=== PATIENT | female | born 1955 | race African-American/Black ===

== ENCOUNTER 2016-04-25 18:33 | Emergency (ER) | payer BC, MEDICARE ==
--- NOTE | 2016-04-25 19:17 | ER Document Report ---
ED Medical Screen (RME) - General Stated Complaint: RIGHT LEG PAIN Notes: Patient states pain and swelling to right lateral leg since Tuesday. Denies injury, no erythema or warmth to the leg. Does have a history of blood clots in the lungs. No chest pain or shortness of breath, and denies any long distance travel. Consulted Dr. Mcneal and advised ordering a venous Doppler. I have greeted and performed a rapid initial assessment of this patient. A comprehensive ED assessment and evaluation of the patient, analysis of test results and completion of the medical decision making process will be conducted by additional ED providers. TRAVEL OUTSIDE OF THE [place] IN LAST 30 DAYS: No - Related Data Allergies/Adverse Reactions: cephalexin monohydrate [From Keflex] Allergy (Verified 02/04/15 01:19) sulfamethoxazole [From Bactrim] Allergy (Verified 02/04/15 01:19) trimethoprim [From Bactrim] Allergy (Verified 02/04/15 01:19) Past Medical History - Past Medical History Cardiac Medical History: Reports: Hx Hypercholesterolemia, Hx Hypertension, Hx Pulmonary Embolism Denies: Hx Atrial Fibrillation, Hx Congestive Heart Failure, Hx Coronary Artery Disease, Hx Heart Attack, Hx Peripheral Vascular Disease, Hx Heart Murmur Pulmonary Medical History: Reports: Hx Asthma, Hx Bronchitis, Hx Pneumonia, Hx Sleep Apnea - bipap at home Denies: Hx COPD, Hx Respiratory Failure, Hx Tuberculosis Neurological Medical History: Reports: Hx Cerebrovascular Accident. Denies: Hx Seizures Endocrine Medical History: Reports: Hx Diabetes Mellitus Type 2, Hx Hypothyroidism. Denies: Hx Graves' Disease, Hx Hyperthyroidism Renal/ Medical History: Reports: Hx Kidney Stones. Denies: Hx End Stage Renal Disease, Hx Ovarian Cysts, Hx Pelvic Inflammatory Disease Malignancy Medical History: Denies: Hx Breast Cancer, Hx Cervical Cancer, Hx Leukemia, Hx Lung Cancer, Hx Ovarian Cancer GI Medical History: Reports: Hx Gastroesophageal Reflux Disease, Hx Hiatal Hernia. Denies: Hx Crohn's Disease, Hx Irritable Bowel, Hx Liver Failure, Hx Ulcer Musculoskeltal Medical History: Reports Hx Arthritis, Denies Hx Fibromyalgia, Denies Hx Multiple Sclerosis, Denies Hx Muscular Dystrophy, Reports Hx Musculoskeletal Deformity, Reports Hx Musculoskeletal Trauma Psychiatric Medical History: Reports: Hx Anxiety Denies: Hx Bipolar Disorder, Hx Dementia, Hx Depression, Hx Post Traumatic Stress Disorder, Hx Schizophrenia Traumatic Medical History: Reports: Hx Fractures - right hand Infectious Medical History: Denies: Hx HIV Past Surgical History: Reports: Hx Cholecystectomy, Hx Hysterectomy, Hx Thyroid Surgery. Denies: Hx Appendectomy, Hx Bowel Surgery, Hx Section, Hx Colostomy, Hx Coronary Artery Bypass Graft, Hx Gastric Bypass Surgery, Hx Herniorrhaphy, Hx Mastectomy, Hx Pacemaker, Hx Tonsillectomy, Hx Tubal Ligation - Immunizations Immunizations up to date: No Hx Diphtheria, Pertussis, Tetanus Vaccination: Yes Physical Exam - Extremities Notes: Patient does have edema and tenderness over right lateral leg above ankle. Venous Doppler ordered per Dr. Mcneal.
[2016-04-25] MEDS ORDERED: HYDROCODONE/ACETAMINOPHEN 5-325 MG 6 TAB/DSPK PO PRN (21:52)
--- NOTE | 2016-04-25 21:56 | ER Document Report ---
ED Extremity Problem, Lower - General Chief Complaint: Leg Pain Stated Complaint: RIGHT LEG PAIN Time seen by provider: 21:53 Mode of Arrival: Ambulatory Information source: Patient TRAVEL OUTSIDE OF THE [place] IN LAST 30 DAYS: No - HPI Patient complains to provider of: Pain Location: Leg Occurred: Last week Onset/Duration: Persistent Quality of pain: Achy Severity: Moderate Pain Level: 3 Recent injury: No Exacerbated by: Movement, Walking Relieved by: Nothing Notes: 60-year-old female presents to the emergency room complaining of right lower leg pain that started on Tuesday, states she feels like there is a "swollen knot ", she denies any injury, reports a history of previous blood clots in her lungs , she is currently on Zaroxolyn so for this, denies missing any doses, she does report a history of tendinitis causing pain in this area in the past - Related Data Allergies/Adverse Reactions: cephalexin monohydrate [From Keflex] Allergy (Verified 02/04/15 01:19) sulfamethoxazole [From Bactrim] Allergy (Verified 02/04/15 01:19) trimethoprim [From Bactrim] Allergy (Verified 02/04/15 01:19) Past Medical History - General Information source: Patient - Social History Smoking Status: Current Every Day Smoker Chew tobacco use (# tins/day): No Frequency of alcohol use: None Drug Abuse: None Family History: Arthritis, CAD, CVA, Hyperlipidemia, Hypertension, Malignancy, Thyroid Disfunction. denies: DM Patient has suicidal ideation: No Patient has homicidal ideation: No - Past Medical History Cardiac Medical History: Reports: Hx Hypercholesterolemia, Hx Hypertension, Hx Pulmonary Embolism Denies: Hx Atrial Fibrillation, Hx Congestive Heart Failure, Hx Coronary Artery Disease, Hx Heart Attack, Hx Peripheral Vascular Disease, Hx Heart Murmur Pulmonary Medical History: Reports: Hx Asthma, Hx Bronchitis, Hx Pneumonia, Hx Sleep Apnea - bipap at home Denies: Hx COPD, Hx Respiratory Failure, Hx Tuberculosis Neurological Medical History: Reports: Hx Cerebrovascular Accident. Denies: Hx Seizures Endocrine Medical History: Reports: Hx Diabetes Mellitus Type 2, Hx Hypothyroidism. Denies: Hx Graves' Disease, Hx Hyperthyroidism Renal/ Medical History: Reports: Hx Kidney Stones. Denies: Hx End Stage Renal Disease, Hx Ovarian Cysts, Hx Peritoneal Dialysis, Hx Pelvic Inflammatory Disease Malignancy Medical History: Denies: Hx Breast Cancer, Hx Cervical Cancer, Hx Leukemia, Hx Lung Cancer, Hx Ovarian Cancer GI Medical History: Reports: Hx Gastroesophageal Reflux Disease, Hx Hiatal Hernia. Denies: Hx Crohn's Disease, Hx Irritable Bowel, Hx Liver Failure, Hx Ulcer Musculoskeltal Medical History: Reports Hx Arthritis, Denies Hx Fibromyalgia, Denies Hx Multiple Sclerosis, Denies Hx Muscular Dystrophy, Reports Hx Musculoskeletal Deformity, Reports Hx Musculoskeletal Trauma Psychiatric Medical History: Reports: Hx Anxiety Denies: Hx Bipolar Disorder, Hx Dementia, Hx Depression, Hx Post Traumatic Stress Disorder, Hx Schizophrenia Traumatic Medical History: Reports: Hx Fractures - right hand Infectious Medical History: Denies: Hx HIV Past Surgical History: Reports: Hx Cholecystectomy, Hx Hysterectomy, Hx Thyroid Surgery. Denies: Hx Appendectomy, Hx Bowel Surgery, Hx Section, Hx Colostomy, Hx Coronary Artery Bypass Graft, Hx Gastric Bypass Surgery, Hx Herniorrhaphy, Hx Mastectomy, Hx Pacemaker, Hx Tonsillectomy, Hx Tubal Ligation - Immunizations Immunizations up to date: No Hx Diphtheria, Pertussis, Tetanus Vaccination: Yes Hx Pneumococcal Vaccination: 12/28/11 Review of Systems - Review of Systems Constitutional: No symptoms reported EENT: No symptoms reported Cardiovascular: No symptoms reported Respiratory: No symptoms reported Gastrointestinal: No symptoms reported Genitourinary: No symptoms reported Female Genitourinary: No symptoms reported Musculoskeletal: See HPI Skin: No symptoms reported Hematologic/Lymphatic: No symptoms reported Neurological/Psychological: No symptoms reported -: Yes All other systems reviewed and negative Physical Exam - Vital signs Vitals: Temp Pulse Resp BP Pulse Ox 98.1 F 65 16 133/95 H 99 04/25/16 19:11 04/25/16 19:11 04/25/16 19:11 04/25/16 19:11 04/25/16 19:11 Interpretation: Normal - General General appearance: Appears well, Alert - HEENT Head: Normocephalic, Atraumatic Eyes: Normal Pupils: PERRL - Respiratory Respiratory status: No respiratory distress Chest status: Nontender Breath sounds: Normal Chest palpation: Normal - Cardiovascular Rhythm: Regular Heart sounds: Normal auscultation Murmur: No - Abdominal Inspection: Normal Distension: No distension Bowel sounds: Normal Tenderness: Nontender Organomegaly: No organomegaly - Back Back: Normal, Nontender - Extremities General upper extremity: Normal inspection, Nontender, Normal color, Normal ROM , Normal temperature General lower extremity: Normal inspection, Normal color, Normal ROM, Normal temperature, Normal weight bearing. No: Khadra's sign Ankle: Tender - Patient has mild tenderness to palpate just proximal to the right lateral malleolus, there was slight pain with range of motion testing of the ankle, no swelling, no calf tenderness, negative Homans sign, distal sensation and motor is intact - Neurological Neuro grossly intact: Yes Cognition: Normal Orientation: AAOx4 [place] Coma Scale Eye Opening: Spontaneous Luz Coma Scale Verbal: Oriented Luz Coma Scale Motor: Obeys Commands [place] Coma Scale Total: 15 Speech: Normal Motor strength normal: LUE, RUE, LLE, RLE Sensory: Normal - Psychological Associated symptoms: Normal affect, Normal mood - Skin Skin Temperature: Warm Skin Moisture: Dry Skin Color: Normal Course - Re-evaluation Re-evalutation: 04/26/16 03:35 Lower extremity Doppler shows no evidence of DVT, symptoms more consistent with musculoskeletal pain, patient was discharged with pain medication and instructions for follow-up, advised to return if symptoms worsen, patient acknowledges understanding and agreement with this plan - Vital Signs Vital signs: Temp Pulse Resp BP Pulse Ox 98.0 F 64 18 132/90 H 97 04/25/16 22:53 04/25/16 22:53 04/25/16 22:53 04/25/16 22:53 04/25/16 22:53 - Diagnostic Test Radiology reviewed: Image reviewed, Reports reviewed Procedures - Immobilization Right Ankle Time completed: 21:54 Pre-Proc Neuro Vasc Exam: Normal Immobilizer type: Magdi wrap Performed by: PCT Post-Proc Neuro Vasc Exam: Normal Alignment checked and good: Yes Discharge - Discharge Clinical Impression: Right leg pain Condition: Stable Disposition: HOME, SELF-CARE Instructions: Leg Pain Nonspecific ([facility]), Oral Narcotic Medication ([facility]) Additional Instructions: Follow up with your primary care provider in one to 2 days. Return to the emergency room immediately if symptoms worsen or any additional concerns. Prescriptions: Hydrocodone/Acetaminophen [Hydrocodon-Acetaminophen 5-325] 1 each PO Q6 #20 tablet Forms: Return to Work Referrals: GEO JACKSON MD [Primary Care Provider] - Follow up as needed
[2016-04-25 22:55] VITALS: BP 132/90
--- NOTE | 2016-04-26 15:11 | XCELERA REPORT ---
[address] [address] Lower Extremity Venous Evaluation Name: DIANNA SOLARES Age: 60 yrs Gender: Female : 1955 Patient Status: Emergency Patient Location: ER Study Date: 04/25/2016 09:02 PM Procedure: Color flow and duplex imaging of the veins of the right lower extremity as well as the left Common Femoral vein. Reason For Study: pain, swelling RLL Ordering Physician: TOM RANGEL Performed By: Amy Craven Right Sided Venous Evaluation Normal vessel filling wall to wall, compression and augmentation as well as Colour flow down to the infrageniculate veins. Left Sided Venous Evaluation The left common femoral vein is fully compressible. Spontaneous and phasic flow is present in the left common femoral vein. Critical Findings Called in to the ER. Interpretation Summary No duplex evidence of DVT or obstruction in the right lower extremity nor in the left Common Femoral vein. : TOM RANGEL [place]
== END 2016-04-25 22:55 | disposition home or self-care (01) ==
LOC: ER 18:33
DX: M79.604 Pain in right leg (principal); Z79.899 Other long term (current) drug therapy; F17.210 Nicotine dependence, cigarettes, uncomplicated
CPT/HCPCS: 93971; 99284

== ENCOUNTER 2016-11-16 20:43 | Emergency (ER) | payer MEDICARE, BC ==
[2016-11-16 22:44] LABS: ABSOLUTE BASOPHILS # (AUTO) 0.1 10^3/uL (0.0-0.2); ABSOLUTE EOSINOPHILS # (AUTO) 0.1 10^3/uL (0.0-0.6); ABSOLUTE LYMPHOCYTES (AUTO) 1.8 10^3/uL (0.5-4.7); ABSOLUTE MONOCYTES (AUTO) 0.8 10^3/uL (0.1-1.4); BASOPHILS % (AUTO) 0.6 % (0-2); EOSINOPHILS % (AUTO) 1.1 % (0-6); HEMOGLOBIN 11.6 g/dL (12.0-15.5); HGB HCT DIFFERENCE -1.2; LYMPHOCYTES % (AUTO) 18.1 % (13-45); MEAN CORPUSCULAR HEMOGLOBIN 23.8 pg (27.0-33.4); MEAN CORPUSCULAR HGB CONC 32.3 g/dL (32.0-36.0); MEAN CORPUSCULAR VOLUME 74 fl (80-97); MONOCYTES % (AUTO) 8.3 % (3-13); RED BLOOD COUNT 4.89 10^6/uL (3.72-5.28); RED CELL DISTRIBUTION WIDTH 17.8 % (11.5-14.0); SEGMENTED NEUTROPHILS % (AUTO) 71.9 % (42-78); WHITE BLOOD COUNT 9.7 10^3/uL (4.0-10.5)
[2016-11-16 22:53] LABS: PROTHROMBIN TIME 15.9 SEC (11.4-15.4)
[2016-11-16 23:02] LABS: ALANINE AMINOTRANSFERASE 18 U/L (9-52); ALBUMIN 4.5 g/dL (3.5-5.0); ALKALINE PHOSPHATASE 93 U/L (38-126); ANION GAP 11 (5-19); ASPARTATE AMINO TRANSFERASE 21 U/L (14-36); BILIRUBIN,DIRECT 0.4 mg/dL (0.0-0.4); BILIRUBIN,TOTAL 0.7 mg/dL (0.2-1.3); BLOOD UREA NITROGEN 17 mg/dL (7-20); CALCIUM 10.2 mg/dL (8.4-10.2); CARBON DIOXIDE 32 mmol/L (22-30); CHLORIDE 99 mmol/L (98-107); CREATINE KINASE 118 U/L (30-135); CREATININE RESULT 1.34 mg/dL (0.52-1.25); GLUCOSE 113 mg/dL (75-110); POTASSIUM 3.6 mmol/L (3.6-5.0); SODIUM 141.7 mmol/L (137-145); TOTAL PROTEIN 8.3 g/dL (6.3-8.2)
[2016-11-16 23:14] LABS: CREATINE KINASE MB 0.48 ng/mL (<4.55); TROPONIN I < 0.012 ng/mL
--- NOTE | 2016-11-16 23:21 | ER Document Report ---
ED Medical Screen (RME) - General Chief Complaint: Abdominal Pain >50 Stated Complaint: ABDOMINAL PAIN TRAVEL OUTSIDE OF THE [place] IN LAST 30 DAYS: No - HPI Notes: 11/16/16 23:18 Patient is a 61-year-old female who presents the ED complaining of bilateral lower abdominal pain that began this afternoon. The pain is described as sharp and does not radiate. She still eating and drinking without any difficulties. Patient states that she is having normal bowel movements and is urinating normally. Patient states she has a history of diverticulosis with her last colonoscopy being about a month ago without any complications. Patient states that the pain is been constant since it started. Denies any headache, fever, URI, sore throat, chest pain, palpitations, syncope, cough, shortness of breath , wheeze, dyspnea, nausea/vomiting/diarrhea, vaginal discharge/odor/bleeding, dysuria, hematuria, or rash. h/o partial hysterectomy. Extensive PMH. see list. I have treated and performed a rapid initial assessment of this patient. A comprehensive ED assessment and evaluation of the patient, analysis of test results and completion of medical decision making process will be conducted by additional ED providers. - Related Data Allergies/Adverse Reactions: cephalexin monohydrate [From Keflex] Allergy (Verified 02/04/15 01:19) sulfamethoxazole [From Bactrim] Allergy (Verified 02/04/15 01:19) trimethoprim [From Bactrim] Allergy (Verified 02/04/15 01:19) Past Medical History - Social History Frequency of alcohol use: None Drug Abuse: None - Past Medical History Cardiac Medical History: Reports: Hx Hypercholesterolemia, Hx Hypertension, Hx Pulmonary Embolism Denies: Hx Atrial Fibrillation, Hx Congestive Heart Failure, Hx Coronary Artery Disease, Hx Heart Attack, Hx Peripheral Vascular Disease, Hx Heart Murmur Pulmonary Medical History: Reports: Hx Asthma, Hx Bronchitis, Hx COPD, Hx Pneumonia, Hx Sleep Apnea - bipap at home Denies: Hx Respiratory Failure, Hx Tuberculosis Neurological Medical History: Reports: Hx Cerebrovascular Accident. Denies: Hx Seizures Endocrine Medical History: Reports: Hx Diabetes Mellitus Type 2, Hx Hypothyroidism. Denies: Hx Graves' Disease, Hx Hyperthyroidism Renal/ Medical History: Reports: Hx Kidney Stones. Denies: Hx End Stage Renal Disease, Hx Ovarian Cysts, Hx Peritoneal Dialysis, Hx Pelvic Inflammatory Disease Malignancy Medical History: Denies: Hx Breast Cancer, Hx Cervical Cancer, Hx Leukemia, Hx Lung Cancer, Hx Ovarian Cancer GI Medical History: Reports: Hx Gastroesophageal Reflux Disease, Hx Hiatal Hernia. Denies: Hx Crohn's Disease, Hx Irritable Bowel, Hx Liver Failure, Hx Ulcer Musculoskeltal Medical History: Reports Hx Arthritis, Denies Hx Fibromyalgia, Denies Hx Multiple Sclerosis, Denies Hx Muscular Dystrophy, Reports Hx Musculoskeletal Deformity, Reports Hx Musculoskeletal Trauma Psychiatric Medical History: Reports: Hx Anxiety Denies: Hx Bipolar Disorder, Hx Dementia, Hx Depression, Hx Post Traumatic Stress Disorder, Hx Schizophrenia Traumatic Medical History: Reports: Hx Fractures - right hand Infectious Medical History: Denies: Hx HIV Past Surgical History: Reports: Hx Cholecystectomy, Hx Hysterectomy, Hx Thyroid Surgery. Denies: Hx Appendectomy, Hx Bowel Surgery, Hx Section, Hx Colostomy, Hx Coronary Artery Bypass Graft, Hx Gastric Bypass Surgery, Hx Herniorrhaphy, Hx Mastectomy, Hx Pacemaker, Hx Tonsillectomy, Hx Tubal Ligation - Immunizations Immunizations up to date: No Hx Diphtheria, Pertussis, Tetanus Vaccination: Yes Physical Exam - Vital signs Vitals: Temp Pulse Resp BP Pulse Ox 99.3 F 73 16 127/86 H 100 11/16/16 21:26 11/16/16 21:26 11/16/16 21:11/16/16 21:26 11/16/16 21:26 Notes: PHYSICAL EXAMINATION: GENERAL: Well-appearing, well-nourished and in no acute distress. EYES: Pupils equal round and reactive to light, extraocular movements intact, sclera anicteric, conjunctiva are normal. LUNGS: Breath sounds clear to auscultation bilaterally and equal. No wheezes rales or rhonchi. HEART: Regular rate and rhythm without murmurs, rubs, gallops. ABDOMEN: Soft, nondistended abdomen. No guarding, no rebound. No masses appreciated. Normal bowel sounds present. No CVA tenderness bilaterally. + tenderness to the LLQ and RLQ to palp. Course - Vital Signs Vital signs: Temp Pulse Resp BP Pulse Ox 99.3 F 73 16 127/86 H 100 11/16/16 21:26 11/16/16 21:26 11/16/16 21:26 11/16/16 21:26 11/16/16 21:26 - Laboratory Result Diagrams: 11/16/16 22:25 11/16/16 22:25 Laboratory results interpreted by me: 11/16/16 11/16/16 11/16/16 22:25 22:25 22:25 Hgb 11.6 L MCV 74 L MCH 23.8 L RDW 17.8 H PT 15.9 H Carbon Dioxide 32 H Creatinine 1.34 H Est GFR ( Amer) 48 L Est GFR (Non-Af Amer) 40 L Glucose 113 H Total Protein 8.3 H
[2016-11-16 23:25] LABS: ADD ON TESTING BLD IN LAB ACKNOWLEDGE
[2016-11-16 23:38] LABS: LIPASE 64.4 U/L (23-300)
--- NOTE | 2016-11-16 23:59 | RADIOLOGY REPORT (SQ) ---
EXAM DESCRIPTION: ACUTE ABDOMEN SERIES COMPLETED DATE/TIME: 11/16/2016 10:45 pm REASON FOR STUDY: CENTRAL ABD PAIN COMPARISON: None. NUMBER OF VIEWS: Three views. TECHNIQUE: Frontal chest, supine abdomen and upright/decubitus abdomen radiographic images acquired. LIMITATIONS: None. FINDINGS: CHEST: Lungs clear of infiltrates. Cardiac silhouette is enlarged. FREE AIR: None. No abnormal gas collections. BOWEL GAS PATTERN: Nonobstructive pattern. No dilated loops or air fluid levels. CALCIFICATIONS: No suspicious calcifications. HARDWARE: Surgical clips are identified in the right upper quadrant. SOFT TISSUES: No gross mass or suggestion of organomegaly. BONES: No acute fracture. Thoracolumbar scoliosis is identified. OTHER: No other significant finding. IMPRESSION: NO RADIOGRAPHIC EVIDENCE FOR ACUTE ABDOMINAL DISEASE. TECHNICAL DOCUMENTATION: JOB ID: [id number] [employer]- All Rights Reserved
[2016-11-17 00:14] LABS: APPEARANCE,URINE CLEAR; BILIRUBIN,URINE NEGATIVE (NEGATIVE); GLUCOSE, URINE NEGATIVE (NEGATIVE); KETONES,URINE NEGATIVE (NEGATIVE); LEUKOCYTE ESTERASE,URINE NEGATIVE (NEGATIVE); NITRITE,URINE NEGATIVE (NEGATIVE); PROTEIN,URINE NEGATIVE (NEGATIVE); URINE SPECIFIC GRAVITY 1.006; UROBILINOGEN,URINE NEGATIVE mg/dL (<2.0)
--- NOTE | 2016-11-17 02:01 | RADIOLOGY REPORT (SQ) ---
EXAM DESCRIPTION: CT ABD/PELVIS WITH IV ONLY COMPLETED DATE/TIME: 11/17/2016 1:22 am REASON FOR STUDY: lower abdominal pain COMPARISON: None. TECHNIQUE: CT scan of the abdomen and pelvis performed using helical scanning technique with dynamic intravenous contrast injection. No oral contrast. Images reviewed with lung, soft tissue, and bone windows. Reconstructed coronal and sagittal MPR images reviewed. Delayed images for evaluation of the urinary system also acquired. All images stored on PACS. All CT scanners at this facility use dose modulation, iterative reconstruction, and/or weight based d osing when appropriate to reduce radiation dose to as low as reasonably achievable (ALARA). [facility]: Dose Right [facility]: CareDose [facility]: Dose Right [facility]: Teradose 4D [facility]: [employer] CONTRAST TYPE AND DOSE: contrast/concentration: Isovue 370.00 mg/ml; Total Contrast Delivered: 100.0 ml; Total Saline Delivered: 71.0 ml RENAL FUNCTION: Creatinine 1.3 RADIATION DOSE: Up-to-date CT equipment and radiation dose reduction techniques were employed. CTDIv ol: 12.8 mGy. DLP: 1308 mGy-cm.. LIMITATIONS: None. FINDINGS: LOWER CHEST: No significant findings. No nodules or infiltrates. LIVER: Normal size. No masses. No dilated ducts. SPLEEN: Normal size. No focal lesions. PANCREAS: No masses. No significant calcifications. No adjacent inflammation or peripancreatic fluid collections. Pancreatic duct not dilated. GALLBLADDER: Surgically absent. ADRENAL GLANDS: No significant masses or asymmetry. RIGHT KIDNEY AND URETER: Moderate cortical scar and multifocal atrophy at the posterior upper pole an d the inferior most inferior pole, 0.5 cm renal/calyceal stone inferiorly. LEFT KIDNEY AND URETER: No solid masses. No significant calcifications. No hydronephrosis or hydr oureter. AORTA AND VESSELS: No aneurysm. No dissection. Renal arteries, SMA, celiac without stenosis. RETROPERITONEUM: No retroperitoneal adenopathy, hemorrhage or masses. BOWEL AND PERITONEAL CAVITY: Moderate diverticulitis pattern includes moderate diffuse bowel wall thi ckening of a 4.1 cm sigmoid segment and moderate inflamed surrounding fat and minimal surrounding flu id and small free pelvic fluid. APPENDIX: Normal. PELVIS: No mass. No free fluid. Normal bladder. Uterus surgically absent. ABDOMINAL WALL: 1 cm supraumbilical midline ventral hernia of fat only. BONES: Moderate disc desiccation between the L2 and S1 levels and [id number] lower thoracic dis c desiccation. Moderate disc bulges between the L4 and S1 levels with [id number] bilateral L4 foraminal stenoses, right more than left. Moderate dextroconvexity of the upper lumbar spine. OTHER: No other significant finding. IMPRESSION: Moderate sigmoid diverticulitis. Cannot exclude underlying neoplasm; [address] recommended. TECHNICAL DOCUMENTATION: JOB ID: [id number] Quality ID # [id number]: Final reports with documentation of one or more dose reduction techniques (e.g., Au tomated exposure control, adjustment of the mA and/or kV according to patient size, use of iterative reconstruction technique) 2010 [employer]- All Rights Reserved
[2016-11-17] MEDS ORDERED: AMOXICILLIN TR/POT CLAVULANATE 250-125 MG TAB PO ONE (02:11)
[2016-11-17] MEDS ORDERED: AMOXICILLIN TR/POT CLAVULANATE 500-125 MG TAB PO ONE (02:11)
[2016-11-17] MEDS ORDERED: ACETAMINOPHEN 325 MG TABLET PO ONE (02:13)
--- NOTE | 2016-11-17 02:19 | ER Document Report ---
ED GI/ - General Chief Complaint: Abdominal Pain >50 Stated Complaint: ABDOMINAL PAIN Time Seen by Provider: 11/16/16 23:26 Notes: The patient is a 61-year-old female, past medical history multiple episodes of diverticulitis and UTIs, presents with worsening suprapubic pain over the past 2 days and diarrhea. She follows with Dr. Manriquez and her last colonoscopy was 2 months ago. She denies fevers, dysuria, flank pain, hematuria, nausea, vomiting or chest pain TRAVEL OUTSIDE OF THE [place] IN LAST 30 DAYS: No - Related Data Allergies/Adverse Reactions: cephalexin monohydrate [From Keflex] Allergy (Verified 02/04/15 01:19) sulfamethoxazole [From Bactrim] Allergy (Verified 02/04/15 01:19) trimethoprim [From Bactrim] Allergy (Verified 02/04/15 01:19) Past Medical History - General Information source: Patient - Social History Smoking Status: Never Smoker Frequency of alcohol use: None Drug Abuse: None Family History: Arthritis, CAD, CVA, Hyperlipidemia, Hypertension, Malignancy, Thyroid Disfunction. denies: DM Patient has suicidal ideation: No Patient has homicidal ideation: No - Past Medical History Cardiac Medical History: Reports: Hx Hypercholesterolemia, Hx Hypertension, Hx Pulmonary Embolism Denies: Hx Atrial Fibrillation, Hx Congestive Heart Failure, Hx Coronary Artery Disease, Hx Heart Attack, Hx Peripheral Vascular Disease, Hx Heart Murmur Pulmonary Medical History: Reports: Hx Asthma, Hx Bronchitis, Hx COPD, Hx Pneumonia, Hx Sleep Apnea - bipap at home Denies: Hx Respiratory Failure, Hx Tuberculosis Neurological Medical History: Reports: Hx Cerebrovascular Accident. Denies: Hx Seizures Endocrine Medical History: Reports: Hx Diabetes Mellitus Type 2, Hx Hypothyroidism. Denies: Hx Graves' Disease, Hx Hyperthyroidism Renal/ Medical History: Reports: Hx Kidney Stones. Denies: Hx End Stage Renal Disease, Hx Ovarian Cysts, Hx Peritoneal Dialysis, Hx Pelvic Inflammatory Disease Malignancy Medical History: Denies: Hx Breast Cancer, Hx Cervical Cancer, Hx Leukemia, Hx Lung Cancer, Hx Ovarian Cancer GI Medical History: Reports: Hx Gastroesophageal Reflux Disease, Hx Hiatal Hernia. Denies: Hx Crohn's Disease, Hx Irritable Bowel, Hx Liver Failure, Hx Ulcer Musculoskeltal Medical History: Reports Hx Arthritis, Denies Hx Fibromyalgia, Denies Hx Multiple Sclerosis, Denies Hx Muscular Dystrophy, Reports Hx Musculoskeletal Deformity, Reports Hx Musculoskeletal Trauma Psychiatric Medical History: Reports: Hx Anxiety Denies: Hx Bipolar Disorder, Hx Dementia, Hx Depression, Hx Post Traumatic Stress Disorder, Hx Schizophrenia Traumatic Medical History: Reports: Hx Fractures - right hand Infectious Medical History: Denies: Hx HIV Past Surgical History: Reports: Hx Cholecystectomy, Hx Hysterectomy, Hx Thyroid Surgery. Denies: Hx Appendectomy, Hx Bowel Surgery, Hx Section, Hx Colostomy, Hx Coronary Artery Bypass Graft, Hx Gastric Bypass Surgery, Hx Herniorrhaphy, Hx Mastectomy, Hx Pacemaker, Hx Tonsillectomy, Hx Tubal Ligation - Immunizations Immunizations up to date: No Hx Diphtheria, Pertussis, Tetanus Vaccination: Yes Hx Pneumococcal Vaccination: 12/28/11 Review of Systems - Review of Systems Notes: REVIEW OF SYSTEMS: CONSTITUTIONAL: -fevers, -chills EENT: -eye pain, -difficulty swallowing, -nasal congestion CARDIOVASCULAR:-chest pain, -syncope. RESPIRATORY: -cough, -SOB GASTROINTESTINAL: +abdominal pain, - nausea, -vomiting, -diarrhea GENITOURINARY: -dysuria, -hematuria MUSCULOSKELETAL: -back pain, -neck pain SKIN: -rash or skin lesions. HEMATOLOGIC: -easy bruising or bleeding. LYMPHATIC: -swollen, enlarged glands. NEUROLOGICAL: -altered mental status or loss of consciousness, -headache, - neurologic symptoms PSYCHIATRIC: -anxiety, -depression. ALL OTHER SYSTEMS REVIEWED AND NEGATIVE. Physical Exam - Vital signs Vitals: Temp Pulse Resp BP Pulse Ox 99.3 F 73 16 127/86 H 100 11/16/16 21:26 11/16/16 21:26 11/16/16 21:26 11/16/16 21:26 11/16/16 21:26 - Notes Notes: PHYSICAL EXAMINATION: GENERAL: Well-appearing, well-nourished and in no acute distress. HEAD: Atraumatic, normocephalic. EYES: Pupils equal round and reactive to light, extraocular movements intact, sclera anicteric, conjunctiva are normal. ENT: nares patent, oropharynx clear without exudates. Moist mucous membranes. NECK: Normal range of motion, supple without lymphadenopathy LUNGS: Breath sounds clear to auscultation bilaterally and equal. No wheezes rales or rhonchi. HEART: Regular rate and rhythm without murmurs ABDOMEN: Soft, mild suprapubic tenderness, normoactive bowel sounds. No guarding, no rebound. No masses appreciated. EXTREMITIES: Normal range of motion, no pitting or edema. No cyanosis. NEUROLOGICAL: Cranial nerves grossly intact. Normal speech, normal gait. Normal sensory and motor exams. PSYCH: Normal mood, normal affect. SKIN: Warm, Dry, normal turgor, no rashes or lesions noted. Course - Re-evaluation Re-evalutation: Pt appears well. She has evidence of uncomplicated sigmoid diverticulitis on her CAT scan. Labs are unremarkable, other than slight evidence of dehydration. Instructed to drink plenty of fluids and will begin Augmentin to help with her diverticulitis. Given very strict return precautions and she understands. Also told her about her CAT scan result about unable to rule out a malignancy, but her last colonoscopy was 2 months ago and she said that it was normal and did not show evidence of colon cancer. - Vital Signs Vital signs: Temp Pulse Resp BP Pulse Ox 98.6 F 66 18 120/75 96 11/17/16 01:36 11/17/16 01:36 11/17/16 01:36 11/17/16 01:36 11/17/16 01:36 - Laboratory Result Diagrams: 11/16/16 22:25 11/16/16 22:25 Laboratory results interpreted by me: 11/16/16 11/16/16 11/16/16 22:25 22:25 22:25 Hgb 11.6 L MCV 74 L MCH 23.8 L RDW 17.8 H PT 15.9 H Carbon Dioxide 32 H Creatinine 1.34 H Est GFR ( Amer) 48 L Est GFR (Non-Af Amer) 40 L Glucose 113 H Total Protein 8.3 H - Diagnostic Test Radiology reviewed: Image reviewed, Reports reviewed Radiology results interpreted by me: CT A/P: Moderate sigmoid diverticulitis. Cannot exclude underlying neoplasm; [address] recommended. Discharge - Discharge Clinical Impression: Diverticulitis Qualifiers: Diverticulitis site: large intestine Diverticulitis bleeding: without bleeding Diverticulitis complication: without perforation or abscess Qualified Code(s): K57.32 - Diverticulitis of large intestine without perforation or abscess without bleeding Condition: Stable Disposition: HOME, SELF-CARE Additional Instructions: Diverticulitis You have been diagnosed as having diverticulitis. This is an inflammation of a small pouch attached to the colon, called a diverticulum. Many of these small pouches can form on the colon as you get older. They are often caused by constipation. When inflamed or infected, symptoms arise -- usually abdominal pain, constipation or diarrhea, fever, and blood in the stool. Severe diverticulitis may require hospitalization. More mild cases are usually treated with antibiotics and clear liquid diet. As you improve, a diet low in residue (one which forms little stool) is prescribed. When you are better, you should eat a high-fiber diet. Stool softeners ( like Metamucil) are usually recommended. Call the doctor or go to the hospital if there is increasing pain, vomiting , high fever, large amounts of blood passed, or if bowel movements cease. Prescriptions: Amox Tr/Potassium Clavulanate [Augmentin 875-125 Tablet] 1 tab PO BID 10 Days tablet Referrals: ELENA NICKERSON MD [Primary Care Provider] - Follow up as needed MOUSTAPHA MANRIQUEZ MD [ACTIVE STAFF] - Follow up as needed
[2016-11-17 02:50] VITALS: BP 110/63
--- NOTE | 2016-11-17 12:24 | EKG REPORT ---
SEVERITY:- ABNORMAL ECG - SINUS RHYTHM LEFT VENTRICULAR HYPERTROPHY : Confirmed by: Evelin Jordan MD 17-Nov-2016 12:23:45
== END 2016-11-17 02:50 | disposition home or self-care (01) ==
LOC: ER 20:43
DX: K57.32 Diverticulitis of large intestine without perforation or abscess without bleeding (principal); R10.9 Unspecified abdominal pain; E78.00 Pure hypercholesterolemia, unspecified; I10 Essential (primary) hypertension; Z87.440 Personal history of urinary (tract) infections; Z88.3 Allergy status to other anti-infective agents; Z86.711 Personal history of pulmonary embolism; Z86.73 Personal history of transient ischemic attack (TIA), and cerebral infarction without residual deficits; Z87.442 Personal history of urinary calculi; Z90.49 Acquired absence of other specified parts of digestive tract; Z90.710 Acquired absence of both cervix and uterus
CPT/HCPCS: 93005; 99285; 36415; 82553; 82550; 83690; 85025; 85610; 80053; 81001; 84484; 74022; 74177; 93010; A9270 ×3; J3490

== ENCOUNTER 2017-02-09 20:04 | Emergency (ER) | payer BC, MEDICARE ==
[2017-02-09] MEDS ORDERED: ASPIRIN 81 MG TABLET, CHEWABLE PO ONE (21:04)
[2017-02-09 22:13] LABS: ABSOLUTE EOSINOPHILS # (AUTO) 0.2 10^3/uL (0.0-0.6); ABSOLUTE LYMPHOCYTES (AUTO) 3.2 10^3/uL (0.5-4.7); ABSOLUTE MONOCYTES (AUTO) 0.9 10^3/uL (0.1-1.4); BASOPHILS % (AUTO) 0.5 % (0-2); EOSINOPHILS % (AUTO) 2.9 % (0-6); HEMATOCRIT 30.5 % (36.0-47.0); HEMOGLOBIN 9.8 g/dL (12.0-15.5); HGB HCT DIFFERENCE -1.1; MEAN CORPUSCULAR HEMOGLOBIN 23.8 pg (27.0-33.4); MEAN CORPUSCULAR HGB CONC 32.3 g/dL (32.0-36.0); MEAN CORPUSCULAR VOLUME 74 fl (80-97); MONOCYTES % (AUTO) 10.8 % (3-13); RED BLOOD COUNT 4.13 10^6/uL (3.72-5.28); RED CELL DISTRIBUTION WIDTH 17.5 % (11.5-14.0); SEGMENTED NEUTROPHILS % (AUTO) 47.8 % (42-78); WHITE BLOOD COUNT 8.4 10^3/uL (4.0-10.5)
[2017-02-09 22:26] LABS: ALANINE AMINOTRANSFERASE 15 U/L (9-52); ALBUMIN 3.7 g/dL (3.5-5.0); ALKALINE PHOSPHATASE 80 U/L (38-126); ANION GAP 9 (5-19); ASPARTATE AMINO TRANSFERASE 17 U/L (14-36); BILIRUBIN,DIRECT 0.1 mg/dL (0.0-0.4); BILIRUBIN,TOTAL 0.1 mg/dL (0.2-1.3); BLOOD UREA NITROGEN 13 mg/dL (7-20); CALCIUM 9.8 mg/dL (8.4-10.2); CARBON DIOXIDE 30 mmol/L (22-30); CHLORIDE 104 mmol/L (98-107); CREATINE KINASE 136 U/L (30-135); CREATININE RESULT 0.99 mg/dL (0.52-1.25); GLUCOSE 119 mg/dL (75-110); POTASSIUM 3.4 mmol/L (3.6-5.0); SODIUM 143.2 mmol/L (137-145); TOTAL PROTEIN 6.8 g/dL (6.3-8.2)
[2017-02-09 22:38] LABS: CREATINE KINASE MB 0.91 ng/mL (<4.55); TROPONIN I < 0.012 ng/mL
[2017-02-09 22:42] LABS: PROTHROMBIN TIME 14.3 SEC (11.4-15.4)
--- NOTE | 2017-02-09 23:02 | ER Document Report ---
ED General - General Chief Complaint: Chest Pain Stated Complaint: CHEST PAIN Time Seen by Provider: 02/09/17 21:40 Notes: Patient is a 61-year-old female with a past medical history of prior TIA, prior PE anticoagulant on Xarelto, a known thoracic aortic aneurysm at 4.5 cm, hypertension, diabetes, sleep apnea who presents with right-sided chest wall discomfort that has been intermittent in nature since yesterday evening. She describes as a burning sensation over the right lateral chest wall just to the level of the axilla. She states it is a burning pain that is only present when she moves her arm or bends forward. She denies any pain any other time except when she is performing his activities. She denies any associated pressure-like sensation, radiation of the pain to the arms, jaw or back. She denies any associated nausea, vomiting, diaphoresis or shortness of breath. No pleuritic pain. She notes that she feels fine and does not feel she needs to be here in the hospital but her family insisted that she come. She has not noted that anything seems to improve or worsen her symptoms. TRAVEL OUTSIDE OF THE [place] IN LAST 30 DAYS: No - Related Data Allergies/Adverse Reactions: cephalexin monohydrate [From Keflex] Allergy (Verified 02/04/15 01:19) sulfamethoxazole [From Bactrim] Allergy (Verified 02/04/15 01:19) trimethoprim [From Bactrim] Allergy (Verified 02/04/15 01:19) Past Medical History - General Information source: Patient - Social History Smoking Status: Never Smoker Frequency of alcohol use: None Drug Abuse: None Lives with: Family Family History: Arthritis, CAD, CVA, Hyperlipidemia, Hypertension, Malignancy, Thyroid Disfunction. denies: DM Patient has suicidal ideation: No Patient has homicidal ideation: No - Past Medical History Cardiac Medical History: Reports: Hx Hypercholesterolemia, Hx Hypertension, Hx Pulmonary Embolism Denies: Hx Atrial Fibrillation, Hx Congestive Heart Failure, Hx Coronary Artery Disease, Hx Heart Attack, Hx Peripheral Vascular Disease, Hx Heart Murmur Pulmonary Medical History: Reports: Hx Asthma, Hx Bronchitis, Hx COPD, Hx Pneumonia, Hx Sleep Apnea - bipap at home Denies: Hx Respiratory Failure, Hx Tuberculosis Neurological Medical History: Reports: Hx Cerebrovascular Accident. Denies: Hx Seizures Endocrine Medical History: Reports: Hx Diabetes Mellitus Type 2, Hx Hypothyroidism. Denies: Hx Graves' Disease, Hx Hyperthyroidism Renal/ Medical History: Reports: Hx Kidney Stones. Denies: Hx End Stage Renal Disease, Hx Ovarian Cysts, Hx Peritoneal Dialysis, Hx Pelvic Inflammatory Disease Malignancy Medical History: Denies: Hx Breast Cancer, Hx Cervical Cancer, Hx Leukemia, Hx Lung Cancer, Hx Ovarian Cancer GI Medical History: Reports: Hx Gastroesophageal Reflux Disease, Hx Hiatal Hernia. Denies: Hx Crohn's Disease, Hx Irritable Bowel, Hx Liver Failure, Hx Pancreatitis, Hx Ulcer Musculoskeltal Medical History: Reports Hx Arthritis, Denies Hx Fibromyalgia, Denies Hx Multiple Sclerosis, Denies Hx Muscular Dystrophy, Reports Hx Musculoskeletal Deformity, Reports Hx Musculoskeletal Trauma Psychiatric Medical History: Reports: Hx Anxiety Denies: Hx Bipolar Disorder, Hx Dementia, Hx Depression, Hx Post Traumatic Stress Disorder, Hx Schizophrenia Traumatic Medical History: Reports: Hx Fractures - right hand Infectious Medical History: Denies: Hx HIV Past Surgical History: Reports: Hx Cholecystectomy, Hx Hysterectomy, Hx Thyroid Surgery. Denies: Hx Appendectomy, Hx Bowel Surgery, Hx Section, Hx Colostomy, Hx Coronary Artery Bypass Graft, Hx Gastric Bypass Surgery, Hx Herniorrhaphy, Hx Mastectomy, Hx Pacemaker, Hx Tonsillectomy, Hx Tubal Ligation - Immunizations Immunizations up to date: No Hx Diphtheria, Pertussis, Tetanus Vaccination: Yes Hx Pneumococcal Vaccination: 12/28/11 Review of Systems - Review of Systems Notes: Constitutional: Negative for fever. HENT: Negative for sore throat. Eyes: Negative for visual changes. Cardiovascular: Positive for chest pain. Respiratory: Negative for shortness of breath. Gastrointestinal: Negative for abdominal pain, vomiting or diarrhea. Genitourinary: Negative for dysuria. Musculoskeletal: Negative for back pain. Skin: Negative for rash. Neurological: Negative for headaches, weakness or numbness. 10 point ROS negative except as marked above and in HPI. Physical Exam - Vital signs Vitals: Temp Pulse Resp BP Pulse Ox 98.3 F 69 16 140/87 H 96 02/09/17 20:19 02/09/17 20:19 02/09/17 20:19 02/09/17 20:19 02/09/17 20:19 Interpretation: Normal Notes: PHYSICAL EXAMINATION: GENERAL: Well-appearing, well-nourished and in no acute distress. HEAD: Atraumatic, normocephalic. EYES: Pupils equal round and reactive to light, extraocular movements intact, sclera anicteric, conjunctiva are normal. ENT: nares patent, oropharynx clear without exudates. Moist mucous membranes. NECK: Normal range of motion, supple without lymphadenopathy LUNGS: Breath sounds clear to auscultation bilaterally and equal. No wheezes rales or rhonchi. HEART: Regular rate and rhythm without murmurs Chest wall: Pain on palpation of the chest wall along the left lateral chest wall ABDOMEN: Soft, nontender, normoactive bowel sounds. No guarding, no rebound. No masses appreciated. EXTREMITIES: Normal range of motion, no pitting or edema. No cyanosis. NEUROLOGICAL: No focal neurological deficits. Moves all extremities spontaneously and on command. PSYCH: Normal mood, normal affect. SKIN: Warm, Dry, normal turgor, no rashes or lesions noted. Course - Re-evaluation Re-evalutation: 02/09/17 22:57 Presentation of chest pain in an otherwise well appearing patient. Low clinical suspicion for ACS given clinical history, exam, EKG without ST elevations or depressions, and negative initial troponin. HEART score less than or equal to 3. PE also seems unlikely given clinical history, absence of tachycardia or dyspnea. Patient is PERC criteria negative. CXR without evidence of pneumothorax or pneumonia. No widened mediastinum. Aortic dissection also seems unlikely given history, symmetric pulses, CXR, and vitals. HEART Score: History:0 EC Age:1 Risk Factors:1 Troponin:0 Total: 3 Patient does have a history of a thoracic aortic aneurysm but has no symptoms to suggest a ruptured aneurysm. Blood pressures checked the bedside myself show symmetric and equal upper extremity blood pressures. Patient's pain is reproducible on palpation of the chest wall and she herself reports that this feels very musculoskeletal, present only when she bends or moves. At this time will discharge with return precautions and follow-up recommendations. Verbal discharge instructions given a the bedside and opportunity for questions given. Medication warnings reviewed. Patient is in agreement with this plan and has verbalized understanding of return precautions and the need for primary care follow-up in the next 24-72 hours. - Vital Signs Vital signs: Temp Pulse Resp BP Pulse Ox 98.3 F 69 13 120/96 H 99 02/09/17 20:19 02/09/17 20:19 02/09/17 23:01 12/20/17 23:01 02/09/17 23:01 - Laboratory Result Diagrams: 02/09/17 22:00 02/09/17 22:00 Laboratory results interpreted by me: 02/09/17 02/09/17 22:00 22:00 Hgb 9.8 L Hct 30.5 L MCV 74 L MCH 23.8 L RDW 17.5 H Potassium 3.4 L Est GFR (Non-Af Amer) 57 L Glucose 119 H Total Bilirubin 0.1 L Creatine Kinase 136 H - Diagnostic Test Radiology reviewed: Image reviewed, Reports reviewed Radiology results interpreted by me: 02/09/17 23:02 Chest x-ray: Slightly wide mediastinum, no pneumothorax or infiltrate - EKG Interpretation by Me Additional EKG results interpreted by me: 02/09/17 23:02 Sinus rhythm. Rate 69. No ST elevations or depressions. QTC is 437. Discharge - Discharge Clinical Impression: Chest discomfort Condition: Good Disposition: HOME, SELF-CARE Additional Instructions: You were seen today for chest pain. The exact cause of your pain is unclear. However, based on your cardiac enzyme testing, chest x-ray, and EKG it does not appear that it is from an immediately life-threatening cause at this time. Please return to emergency department immediately if you have worsening of your chest pain, shortness of breath, vomiting, become unable to exert yourself due to pain or difficulty breathing, you pass out, or have any pain that radiates into your arms, jaw, or back. Please also return if you have any additional symptoms that are concerning to you. Referrals: GEO JACKSON MD [Primary Care Provider] - Follow up as needed
--- NOTE | 2017-02-09 23:17 | RADIOLOGY REPORT (SQ) ---
EXAM DESCRIPTION: CHEST SINGLE VIEW COMPLETED DATE/TIME: 02/09/2017 10:13 pm REASON FOR STUDY: CP COMPARISON: 09/11/2015 EXAM PARAMETERS: NUMBER OF VIEWS: One view. TECHNIQUE: Single frontal radiographic view of the chest acquired. RADIATION DOSE: NA LIMITATIONS: None. FINDINGS: LUNGS AND PLEURA: No acute opacities, masses or pneumothorax. No pleural effusion. MEDIASTINUM AND HILAR STRUCTURES: Stable. HEART AND VASCULAR STRUCTURES: Stable. BONES: No acute findings. HARDWARE: None in the chest. OTHER: No other significant finding. IMPRESSION: NO ACUTE RADIOGRAPHIC FINDING IN THE CHEST. TECHNICAL DOCUMENTATION: JOB ID: [id number] [id number] 2010 [employer]- All Rights Reserved
[2017-02-09 23:19] VITALS: BP 120/96
--- NOTE | 2017-02-10 07:53 | EKG REPORT ---
SEVERITY:- ABNORMAL ECG - SINUS RHYTHM LEFT VENTRICULAR HYPERTROPHY : Confirmed by: Primo Hampton MD 10-Feb-2017 07:52:35
== END 2017-02-09 23:41 | disposition home or self-care (01) ==
LOC: ER 20:04
DX: R07.89 Other chest pain (principal); I10 Essential (primary) hypertension; Z86.73 Personal history of transient ischemic attack (TIA), and cerebral infarction without residual deficits; Z86.711 Personal history of pulmonary embolism; Z79.01 Long term (current) use of anticoagulants
CPT/HCPCS: 36415; 71010; 80053; 82550; 82553; 84484; 85025; 85610; 93005; 93010; 99285

== ENCOUNTER → 2017-02-11 | Outpatient (CLI) | payer BC, MEDICARE ==
--- NOTE | 2017-02-11 12:47 | WOMENS IMAGING REPORT ---
EXAM DESCRIPTION: 3D SCREENING MAMMO BILAT COMPLETED DATE/TIME: 02/11/2017 10:25 am REASON FOR STUDY: ROUTINE SCREENING; Z12.31 Z12.31 ENCNTR SCREEN MAMMOGRAM FOR MALIGNANT NEOPLASM O F ANTONIO COMPARISON: 2013 to 2015 TECHNIQUE: Standard craniocaudal and mediolateral oblique views of each breast recorded using digita l acquisition and breast tomosynthesis. LIMITATIONS: None. FINDINGS: No masses, calcifications or architectural distortion. No areas of suspicion. Read with the assistance of CAD. .[facility] - R2 Cenova Version 1.3 .[facility] - R2 Cenova Version 1.3 .[facility] - R2 Cenova Version 2.4 .[facility] [place] R2 Cenova Version 2.4 .[facility] - R2 [employer] Version 9.2 IMPRESSION: NORMAL MAMMOGRAM. BIRADS 1. BREAST DENSITY: b. There are scattered areas of fibroglandular density. BIRAD: 1 NEGATIVE RECOMMENDATION: ROUTINE SCREENING COMMENT: The patient has been notified of the results by letter per SA requirements. Additional no tification policies are in place for contacting patient with suspicious or incomplete findings. Quality ID #[id number]: The [employer] recommends an annual screening mammogram for women aged 40 years or over. This facility utilizes a reminder system to ensure that all patients receive reminder letters, and/or direct phone calls for appointments. This includes reminders for routine scr eening mammograms, diagnostic mammograms, or other Breast Imaging Interventions when appropriate. Th is patient will be placed in the appropriate reminder system. The [employer] (ACR) has developed recommendations for screening MRI of the breast s in certain patient populations, to be used in conjunction with mammography. Breast MRI surveillanc e may be appropriate for women with more than 20% lifetime risk of developing breast cancer as deter mined by genetic testing, significant family history of the disease, or history of mantle radiation f or Hodgkins Disease. ACR Practice Guidelines 2008. DBT Technology DBT is a type of tomographic mammography. With conventional mammography, overlapping breast tissue ma y make lesions difficult to detect, even with good compression. DBT uses an x-ray tube that rotates a round the breast, taking images at different angles. These images are then combined to create thin sl ices of the breast that the radiologist can view as a 3D reconstruction. The [employer] unit can perform full-field digital mammograms (2D imaging); or DBT (3D imaging); or both, in a combination mode that quickly performs both the mammogram and the tomosynthesis scan while the breast is still compressed. PQRS 6045F: Fluoroscopic imaging is not utilized for breast tomosynthesis. TECHNICAL DOCUMENTATION: FINDING NUMBER: (1) ASSESSMENT: (1) JOB ID: [id number] [employer]- All Rights Reserved
== END ==
LOC: WI 10:28
PROVIDERS: ATTEND Internal Medicine
DX: Z12.31 Encounter for screening mammogram for malignant neoplasm of breast (principal)
CPT/HCPCS: 77063; G0202; 77067

== ENCOUNTER 2017-04-30 06:52 | Emergency (ER) | payer BC, MEDICARE ==
[2017-04-30 07:57] LABS: ABSOLUTE BASOPHILS # (AUTO) 0.1 10^3/uL (0.0-0.2); ABSOLUTE EOSINOPHILS # (AUTO) 0.2 10^3/uL (0.0-0.6); ABSOLUTE LYMPHOCYTES (AUTO) 2.3 10^3/uL (0.5-4.7); ABSOLUTE MONOCYTES (AUTO) 0.9 10^3/uL (0.1-1.4); ABSOLUTE NEUT (AUTO) 6.1 10^3/uL (1.7-8.2); BASOPHILS % (AUTO) 0.9 % (0-2); EOSINOPHILS % (AUTO) 1.6 % (0-6); HEMATOCRIT 34.6 % (36.0-47.0); HEMOGLOBIN 10.9 g/dL (12.0-15.5); LYMPHOCYTES % (AUTO) 24.2 % (13-45); MEAN CORPUSCULAR HEMOGLOBIN 23.2 pg (27.0-33.4); MEAN CORPUSCULAR HGB CONC 31.6 g/dL (32.0-36.0); MEAN CORPUSCULAR VOLUME 74 fl (80-97); MONOCYTES % (AUTO) 9.7 % (3-13); PLATELET COUNT 300 10^3/uL (150-450); RED CELL DISTRIBUTION WIDTH 18.1 % (11.5-14.0); SEGMENTED NEUTROPHILS % (AUTO) 63.6 % (42-78); TOTAL CELLS COUNTED % (AUTO) 100 %; WHITE BLOOD COUNT 9.7 10^3/uL (4.0-10.5)
[2017-04-30 09:28] LABS: ALANINE AMINOTRANSFERASE 20 U/L (9-52); ALBUMIN 4.1 g/dL (3.5-5.0); ALKALINE PHOSPHATASE 81 U/L (38-126); ANION GAP 11 (5-19); ASPARTATE AMINO TRANSFERASE 17 U/L (14-36); BILIRUBIN,DIRECT 0.1 mg/dL (0.0-0.4); BILIRUBIN,TOTAL 0.4 mg/dL (0.2-1.3); BLOOD UREA NITROGEN 10 mg/dL (7-20); CARBON DIOXIDE 28 mmol/L (22-30); CHLORIDE 103 mmol/L (98-107); GLUCOSE 99 mg/dL (75-110); LIPASE 56.2 U/L (23-300); POTASSIUM 3.8 mmol/L (3.6-5.0); SODIUM 141.8 mmol/L (137-145); TOTAL PROTEIN 6.9 g/dL (6.3-8.2)
--- NOTE | 2017-04-30 10:05 | RADIOLOGY REPORT (SQ) ---
EXAM DESCRIPTION: ACUTE ABDOMEN SERIES COMPLETED DATE/TIME: 04/30/2017 9:33 am REASON FOR STUDY: abd pain, diarrhea COMPARISON: Chest films 02/09/2017. CT 11/17/2016. NUMBER OF VIEWS: Three views. TECHNIQUE: Frontal chest, supine abdomen and upright/decubitus abdomen radiographic images acquired. LIMITATIONS: None. FINDINGS: CHEST: Clear lungs. Stable cardiomediastinal silhouette with somewhat ectatic appearing a corey. FREE AIR: None. No abnormal gas collections. BOWEL GAS PATTERN: Nonobstructive pattern. No dilated loops or air fluid levels. Relatively mild sto ol. CALCIFICATIONS: Known right nephrolithiasis. Sub 4 mm calcification projecting in the region of the right kidney. HARDWARE: None in the abdomen. SOFT TISSUES: No gross mass or suggestion of organomegaly. BONES: No acute fracture. No worrisome bone lesions. OTHER: No other significant finding. IMPRESSION: No radiographic evidence of acute disease. Chronic changes as above. Known right nephr olithiasis. TECHNICAL DOCUMENTATION: JOB ID: [id number] [employer]- All Rights Reserved Reading location - IP/workstation name: [email or web address]
--- NOTE | 2017-04-30 10:47 | ER Document Report ---
ED GI/ - General Chief Complaint: Abdominal Pain Stated Complaint: ABDOMINAL PAIN Time Seen by Provider: 04/30/17 07:32 Mode of Arrival: Ambulatory Information source: Patient Notes: Patient is a 61-year-old female who presents to the ER today for lower abdominal pain, diarrhea 3 days. Patient denies any nausea or vomiting. She states that she does have a history of diverticulitis. She denies any fevers, chills. She states that she thinks he saw some streaks of bright red blood in her diarrhea "couple of times." She states that the pain is worse in the middle of the abdomen to the left. TRAVEL OUTSIDE OF THE [place] IN LAST 30 DAYS: No - Related Data Allergies/Adverse Reactions: cephalexin monohydrate [From Keflex] Allergy (Verified 04/30/17 06:59) sulfamethoxazole [From Bactrim] Allergy (Verified 04/30/17 06:59) trimethoprim [From Bactrim] Allergy (Verified 04/30/17 06:59) Past Medical History - General Information source: Patient - Social History Smoking Status: Unknown if Ever Smoked Chew tobacco use (# tins/day): No Frequency of alcohol use: None Drug Abuse: None Family History: Arthritis, CAD, CVA, Hyperlipidemia, Hypertension, Malignancy, Thyroid Disfunction. denies: DM Patient has suicidal ideation: No Patient has homicidal ideation: No - Past Medical History Cardiac Medical History: Reports: Hx Hypercholesterolemia, Hx Hypertension, Hx Pulmonary Embolism Denies: Hx Atrial Fibrillation, Hx Congestive Heart Failure, Hx Coronary Artery Disease, Hx Heart Attack, Hx Peripheral Vascular Disease, Hx Heart Murmur Pulmonary Medical History: Reports: Hx Asthma, Hx Bronchitis, Hx COPD, Hx Pneumonia, Hx Sleep Apnea - bipap at home Denies: Hx Respiratory Failure, Hx Tuberculosis Neurological Medical History: Reports: Hx Cerebrovascular Accident. Denies: Hx Seizures Endocrine Medical History: Reports: Hx Diabetes Mellitus Type 2 - no insulin at this time. Patient on Metformin more then 10 years, Hx Hypothyroidism. Denies: Hx Graves' Disease, Hx Hyperthyroidism Renal/ Medical History: Reports: Hx Kidney Stones. Denies: Hx End Stage Renal Disease, Hx Ovarian Cysts, Hx Peritoneal Dialysis, Hx Pelvic Inflammatory Disease Malignancy Medical History: Denies: Hx Breast Cancer, Hx Cervical Cancer, Hx Leukemia, Hx Lung Cancer, Hx Ovarian Cancer GI Medical History: Reports: Hx Gastroesophageal Reflux Disease, Hx Hiatal Hernia. Denies: Hx Crohn's Disease, Hx Irritable Bowel, Hx Liver Failure, Hx Pancreatitis, Hx Ulcer Musculoskeltal Medical History: Reports Hx Arthritis, Denies Hx Fibromyalgia, Denies Hx Multiple Sclerosis, Denies Hx Muscular Dystrophy, Reports Hx Musculoskeletal Deformity, Reports Hx Musculoskeletal Trauma Psychiatric Medical History: Reports: Hx Anxiety Denies: Hx Bipolar Disorder, Hx Dementia, Hx Depression, Hx Post Traumatic Stress Disorder, Hx Schizophrenia Traumatic Medical History: Reports: Hx Fractures - right hand Infectious Medical History: Denies: Hx HIV Past Surgical History: Reports: Hx Cholecystectomy, Hx Hysterectomy, Hx Thyroid Surgery. Denies: Hx Appendectomy, Hx Bowel Surgery, Hx Section, Hx Colostomy, Hx Coronary Artery Bypass Graft, Hx Gastric Bypass Surgery, Hx Herniorrhaphy, Hx Mastectomy, Hx Pacemaker, Hx Tonsillectomy, Hx Tubal Ligation - Immunizations Immunizations up to date: No Hx Diphtheria, Pertussis, Tetanus Vaccination: Yes Hx Pneumococcal Vaccination: 12/28/11 Review of Systems - Review of Systems Constitutional: No symptoms reported EENT: No symptoms reported Cardiovascular: No symptoms reported Respiratory: No symptoms reported Gastrointestinal: See HPI Genitourinary: No symptoms reported Female Genitourinary: No symptoms reported Musculoskeletal: No symptoms reported Skin: No symptoms reported Hematologic/Lymphatic: No symptoms reported Neurological/Psychological: No symptoms reported Physical Exam - Vital signs Vitals: Temp Pulse Resp BP Pulse Ox 98.3 F 75 18 119/82 99 04/30/17 07:01 04/30/17 07:01 04/30/17 07:01 04/30/17 07:01 04/30/17 07:01 - Notes Notes: PHYSICAL EXAMINATION: GENERAL: Well-appearing and in no acute distress. HEAD: Atraumatic, normocephalic. EYES: Pupils equal round and reactive to light, extraocular movements intact, sclera anicteric, conjunctiva are normal. ENT: ear canals without erythema or foreign body, TMs pearly chong with good bony landmarks, nares patent, oropharynx clear without exudates. Moist mucous membranes. NECK: Normal range of motion, supple without lymphadenopathy LUNGS: CTAB and equal. No wheezes rales or rhonchi. HEART: Regular rate and rhythm without murmurs ABDOMEN: Soft, mild LLQ, suprapubic tenderness. No guarding, no rebound BACK: no vertebral tenderness, normal ROM GI/: no CVA tenderness EXTREMITIES: Normal range of motion, no pitting edema. No cyanosis. NEUROLOGICAL: Cranial nerves grossly intact. Normal sensory/motor exams. PSYCH: Normal mood, normal affect. SKIN: Warm, Dry, normal turgor, no rashes or lesions noted Course - Re-evaluation Re-evalutation: 04/30/17 11:33 Lab work is unremarkable today, acute abdominal series reports no acute pathology, patient be placed on Augmentin and Flagyl to treat for diverticulitis as she does have a history of this with similar pain and diarrhea today. I did not CAT scan patient as she just had a abdominal CAT scan last month per her own history. I think this is reasonable as she does have a history of this. - Vital Signs Vital signs: Temp Pulse Resp BP Pulse Ox 98.3 F 75 18 119/82 99 04/30/17 07:01 04/30/17 07:01 04/30/17 07:01 04/30/17 07:01 04/30/17 07:01 - Laboratory Result Diagrams: 04/30/17 07:34 04/30/17 08:45 Laboratory results interpreted by me: 04/30/17 07:34 Hgb 10.9 L Hct 34.6 L MCV 74 L MCH 23.2 L MCHC 31.6 L RDW 18.1 H Discharge - Discharge Clinical Impression: Lower abdominal pain Diarrhea Qualifiers: Diarrhea type: unspecified type Qualified Code(s): R19.7 - Diarrhea, unspecified Condition: Stable Disposition: HOME, SELF-CARE Additional Instructions: Return immediately for any new or worsening symptoms. Follow up with primary care provider, call tomorrow to make followup appointment. Prescriptions: Amox Tr/Potassium Clavulanate [Augmentin 875-125 Tablet] 1 tab PO BID 10 Days tablet Metronidazole [Flagyl 500 mg Tablet] 500 mg PO BID #20 tablet Referrals: GEO JACKSON MD [Primary Care Provider] - Follow up as needed
[2017-04-30 11:29] VITALS: BP 113/82
== END 2017-04-30 11:29 | disposition home or self-care (01) ==
LOC: ER 06:52
DX: R10.30 Lower abdominal pain, unspecified (principal); R19.7 Diarrhea, unspecified; I10 Essential (primary) hypertension; E11.9 Type 2 diabetes mellitus without complications; J44.9 Chronic obstructive pulmonary disease, unspecified; Z87.19 Personal history of other diseases of the digestive system; Z88.1 Allergy status to other antibiotic agents; Z87.442 Personal history of urinary calculi
CPT/HCPCS: 36415; 74022; 80053; 82272; 83690; 85025; 99284

== ENCOUNTER → 2017-10-04 | Outpatient (CLI) | payer BC, MEDICARE ==
[2017-10-04 15:15] LABS: ABSOLUTE BASOPHILS # (AUTO) 0.1 10^3/uL (0.0-0.2); ABSOLUTE EOSINOPHILS # (AUTO) 0.2 10^3/uL (0.0-0.6); ABSOLUTE LYMPHOCYTES (AUTO) 2.6 10^3/uL (0.5-4.7); ABSOLUTE MONOCYTES (AUTO) 0.7 10^3/uL (0.1-1.4); ABSOLUTE NEUT (AUTO) 2.6 10^3/uL (1.7-8.2); EOSINOPHILS % (AUTO) 3.4 % (0-6); HEMATOCRIT 34.3 % (36.0-47.0); LYMPHOCYTES % (AUTO) 41.9 % (13-45); MEAN CORPUSCULAR HEMOGLOBIN 23.9 pg (27.0-33.4); MEAN CORPUSCULAR HGB CONC 32.1 g/dL (32.0-36.0); MEAN CORPUSCULAR VOLUME 74 fl (80-97); MONOCYTES % (AUTO) 10.7 % (3-13); PLATELET COUNT 289 10^3/uL (150-450); RED BLOOD COUNT 4.62 10^6/uL (3.72-5.28); RED CELL DISTRIBUTION WIDTH 18.5 % (11.5-14.0); TOTAL CELLS COUNTED % (AUTO) 100 %; WHITE BLOOD COUNT 6.1 10^3/uL (4.0-10.5)
[2017-10-04 15:33] LABS: ALANINE AMINOTRANSFERASE 19 U/L (9-52); ALKALINE PHOSPHATASE 81 U/L (38-126); ANION GAP 12 (5-19); ASPARTATE AMINO TRANSFERASE 19 U/L (14-36); BILIRUBIN,DIRECT 0.2 mg/dL (0.0-0.4); BILIRUBIN,TOTAL 0.6 mg/dL (0.2-1.3); BLOOD UREA NITROGEN 9 mg/dL (7-20); CALCIUM 9.9 mg/dL (8.4-10.2); CARBON DIOXIDE 31 mmol/L (22-30); CHLORIDE 103 mmol/L (98-107); GLUCOSE 94 mg/dL (75-110); POTASSIUM 3.8 mmol/L (3.6-5.0); SODIUM 145.9 mmol/L (137-145); TOTAL PROTEIN 7.6 g/dL (6.3-8.2)
--- NOTE | 2017-10-04 18:46 | RADIOLOGY REPORT (SQ) ---
EXAM DESCRIPTION: CT ABD/PELVIS WITH IV ORAL COMPLETED DATE/TIME: 10/04/2017 6:12 pm REASON FOR STUDY: LEFT LOWER QUAD PAIN R10.32 LEFT LOWER QUADRANT PAIN COMPARISON: CT abdomen pelvis 11/17/2016, 09/01/2011, 05/04/2011 TECHNIQUE: CT scan of the abdomen and pelvis performed using helical scanning technique with dynamic intravenous contrast injection. Patient drank oral contrast. Images reviewed with lung, soft tissue , and bone windows. Reconstructed coronal and sagittal MPR images reviewed. Delayed images for evalua tion of the urinary system also acquired. All images stored on PACS. All CT scanners at this facility use dose modulation, iterative reconstruction, and/or weight based d osing when appropriate to reduce radiation dose to as low as reasonably achievable (ALARA). [facility]: Dose Right [facility]: CareDose [facility]: Dose Right [facility]: Teradose 4D [facility]: Tutamee CONTRAST TYPE AND DOSE: contrast/concentration: Isovue 350.00 mg/ml; Total Contrast Delivered: 92.0 ml; Total Saline Delivered: 34.0 ml RENAL FUNCTION: Creatinine 0.86 RADIATION DOSE: CT Rad equipment meets quality standard of care and radiation dose reduction techniq ues were employed. CTDIvol: 8.6 - 12.2 mGy. DLP: 1038 mGy-cm.. LIMITATIONS: None. FINDINGS: LOWER CHEST: Lung bases are clear. Mild cardiomegaly. LIVER: Normal size. No masses. No dilated ducts. SPLEEN: Normal size. 1 cm benign splenic cyst. . PANCREAS: No masses. No significant calcifications. No adjacent inflammation or peripancreatic fluid collections. Pancreatic duct not dilated. GALLBLADDER: No identified stones by CT criteria. No inflammatory changes to suggest cholecystitis. ADRENAL GLANDS: No significant masses or asymmetry. RIGHT KIDNEY AND URETER: No solid masses. Duplicated right renal collecting system with chronic foc al atrophy of the lower pole right kidney. 6 mm right lower pole intrarenal nonobstructive stone, 75 0 Hounsfield units. No ureteral calculi. No hydronephrosis or hydroureter. LEFT KIDNEY AND URETER: No solid masses. No significant calcifications. No hydronephrosis or hydr oureter. AORTA AND VESSELS: No aneurysm. No dissection. Renal arteries, SMA, celiac without stenosis. RETROPERITONEUM: No retroperitoneal adenopathy, hemorrhage or masses.BOWEL AND PERITONEAL CAVITY: Pat ient drank oral contrast. No CT evidence of free intraperitoneal air or fluid. No bowel obstruction . Few colonic diverticuli, with mild colon wall thickening and luminal narrowing along the mid sigmo id colon best shown on coronal reconstruction images 34-41, worrisome for mild diverticulitis. No ab scess. APPENDIX: Normal. PELVIS: Post hysterectomy. No free pelvic fluid. No pelvic masses or adenopathy ABDOMINAL WALL: Tiny fat containing umbilical hernia sagittal image 52 BONES: Degenerative convex rightward lumbar curvature OTHER: No other significant finding. IMPRESSION: Scattered sigmoid diverticuli. Mild diverticulitis along the mid sigmoid colon without abscess. TECHNICAL DOCUMENTATION: JOB ID: [id number] Quality ID # [id number]: Final reports with documentation of one or more dose reduction techniques (e.g., Au tomated exposure control, adjustment of the mA and/or kV according to patient size, use of iterative reconstruction technique) 2010 [employer]- All Rights Reserved Reading location - IP/workstation name: [email or web address]
== END ==
LOC: LAB 14:51
PROVIDERS: ATTEND Internal Medicine Gastroenterology
DX: K57.32 Diverticulitis of large intestine without perforation or abscess without bleeding (principal); R10.32 Left lower quadrant pain
CPT/HCPCS: 36415; 74177; 80048; 80076; 85025

== ENCOUNTER 2017-12-31 17:35 | Emergency (ER) | payer BC, MEDICARE ==
--- NOTE | 2017-12-31 18:02 | ER Document Report ---
ED Medical Screen (RME) - General Chief Complaint: Flank Pain Stated Complaint: RIGHT FLANK PAIN Time Seen by Provider: 12/31/17 17:44 Notes: This 62-year-old female patient reports having right flank pain for just over a week. She does have a past history of kidney stones. Her history about prior stones is somewhat vague and that she indicated she passed a few recently, but had one that was too large the past. When asked about her most recent imaging she stated it was done at [facility], but then when asked about her last CT she said it was 2-3 years ago. I have greeted and performed a rapid initial assessment of this patient. A comprehensive ED assessment and evaluation of the patient, analysis of test results and completion of the medical decision making process will be conducted by additional ED providers. TRAVEL OUTSIDE OF THE [place] IN LAST 30 DAYS: No - Related Data Allergies/Adverse Reactions: cephalexin monohydrate [From Keflex] Allergy (Verified 12/31/17 17:36) sulfamethoxazole [From Bactrim] Allergy (Verified 12/31/17 17:36) trimethoprim [From Bactrim] Allergy (Verified 12/31/17 17:36) Past Medical History - Past Medical History Cardiac Medical History: Reports: Hx Hypercholesterolemia, Hx Hypertension, Hx Pulmonary Embolism Denies: Hx Atrial Fibrillation, Hx Congestive Heart Failure, Hx Coronary Artery Disease, Hx Heart Attack, Hx Peripheral Vascular Disease, Hx Heart Murmur Pulmonary Medical History: Reports: Hx Asthma, Hx Bronchitis, Hx COPD, Hx Pneumonia, Hx Sleep Apnea - bipap at home Denies: Hx Respiratory Failure, Hx Tuberculosis Neurological Medical History: Reports: Hx Cerebrovascular Accident. Denies: Hx Seizures Endocrine Medical History: Reports: Hx Diabetes Mellitus Type 2 - no insulin at this time. Patient on Metformin more then 10 years, Hx Hypothyroidism. Denies: Hx Graves' Disease, Hx Hyperthyroidism Renal/ Medical History: Reports: Hx Kidney Stones. Denies: Hx End Stage Renal Disease, Hx Ovarian Cysts, Hx Peritoneal Dialysis, Hx Pelvic Inflammatory Disease Malignancy Medical History: Denies: Hx Breast Cancer, Hx Cervical Cancer, Hx Leukemia, Hx Lung Cancer, Hx Ovarian Cancer GI Medical History: Reports: Hx Gastroesophageal Reflux Disease, Hx Hiatal Hernia. Denies: Hx Crohn's Disease, Hx Irritable Bowel, Hx Liver Failure, Hx Pancreatitis, Hx Ulcer Musculoskeltal Medical History: Reports Hx Arthritis, Denies Hx Fibromyalgia, Denies Hx Multiple Sclerosis, Denies Hx Muscular Dystrophy, Reports Hx Musculoskeletal Deformity, Reports Hx Musculoskeletal Trauma Psychiatric Medical History: Reports: Hx Anxiety Denies: Hx Bipolar Disorder, Hx Dementia, Hx Depression, Hx Post Traumatic Stress Disorder, Hx Schizophrenia Traumatic Medical History: Reports: Hx Fractures - right hand Infectious Medical History: Denies: Hx HIV Past Surgical History: Reports: Hx Cholecystectomy, Hx Hysterectomy, Hx Thyroid Surgery. Denies: Hx Appendectomy, Hx Bowel Surgery, Hx Section, Hx Colostomy, Hx Coronary Artery Bypass Graft, Hx Gastric Bypass Surgery, Hx Herniorrhaphy, Hx Mastectomy, Hx Pacemaker, Hx Tonsillectomy, Hx Tubal Ligation - Immunizations Immunizations up to date: No Hx Diphtheria, Pertussis, Tetanus Vaccination: Yes Physical Exam - Vital signs Vitals: Temp Pulse Resp BP Pulse Ox 98.4 F 65 16 146/98 H 98 12/31/17 17:38 12/31/17 17:38 12/31/17 17:38 12/31/17 17:38 12/31/17 17:38 Course - Vital Signs Vital signs: Temp Pulse Resp BP Pulse Ox 98.4 F 65 16 146/98 H 98 12/31/17 17:38 12/31/17 17:38 12/31/17 17:38 12/31/17 17:38 12/31/17 17:38 Doctor's Discharge - Discharge Referrals: MOUSTAPHA JUSTIN MD [Primary Care Provider] - Follow up as needed
--- NOTE | 2017-12-31 18:17 | ER Document Report ---
ED General - General Chief Complaint: Flank Pain Stated Complaint: RIGHT FLANK PAIN Time Seen by Provider: 12/31/17 17:44 Notes: Patient is a 62-year-old female with history of kidney stones that presents to the emergency department for chief complaint of right flank pain. Patient states she is been having symptoms over the past 3 days, describes as an ache in her right flank, does not radiate, currently rates the pain as a 4 out of 10. Denies any injury. Denies having any hematuria, dysuria or urinary frequency. She does report history of kidney stones, this does feel similar to the one she has had in the past. Denies any other complaints at this time. Past Medical History: Hypertension, diabetes mellitus, kidney stones, asthma, arthritis Past Surgical History: Bilateral total knee arthroplasty Social History: Denies tobacco, alcohol or drug use Family History: Reviewed and noncontributory for presenting illness Allergies: Reviewed, see documented allergy list. REVIEW OF SYSTEMS: Other than noted above, the 12 point review of systems was reviewed with the patient and were negative, all pertinent findings are included in the HPI. PHYSICAL EXAMINATION: Vital signs reviewed, nursing noted reviewed. GENERAL: Well-appearing, well-nourished and in no acute distress. HEAD: Atraumatic, normocephalic. EYES: Eyes appear normal, extraocular movements intact, sclera anicteric, conjunctiva are normal. ENT: nares patent, oropharynx clear without exudates. Moist mucous membranes. NECK: Normal range of motion, supple without lymphadenopathy LUNGS: Breath sounds clear to auscultation bilaterally and equal. No wheezes rales or rhonchi. HEART: Regular rate and rhythm without murmurs ABDOMEN: Soft, right flank tenderness with palpation, normoactive bowel sounds. No rebound, guarding, or rigidity. No masses appreciated. EXTREMITIES: Nontender, good range of motion, no pitting or edema. NEUROLOGICAL: No focal neurological deficits. Moves all extremities spontaneously Motor and sensory grossly intact on exam. PSYCH: Normal mood, normal affect. SKIN: Warm, Dry, normal turgor, no rashes or lesions noted on exposed skin TRAVEL OUTSIDE OF THE [place] IN LAST 30 DAYS: No - Related Data Allergies/Adverse Reactions: cephalexin monohydrate [From Keflex] Allergy (Verified 12/31/17 17:36) sulfamethoxazole [From Bactrim] Allergy (Verified 12/31/17 17:36) trimethoprim [From Bactrim] Allergy (Verified 12/31/17 17:36) Past Medical History - Social History Smoking Status: Unknown if Ever Smoked Family History: Arthritis, CAD, CVA, Hyperlipidemia, Hypertension, Malignancy, Thyroid Disfunction. denies: DM Patient has suicidal ideation: No Patient has homicidal ideation: No - Past Medical History Cardiac Medical History: Reports: Hx Hypercholesterolemia, Hx Hypertension, Hx Pulmonary Embolism Denies: Hx Atrial Fibrillation, Hx Congestive Heart Failure, Hx Coronary Artery Disease, Hx Heart Attack, Hx Peripheral Vascular Disease, Hx Heart Murmur Pulmonary Medical History: Reports: Hx Asthma, Hx Bronchitis, Hx COPD, Hx Pneumonia, Hx Sleep Apnea - bipap at home Denies: Hx Respiratory Failure, Hx Tuberculosis Neurological Medical History: Reports: Hx Cerebrovascular Accident. Denies: Hx Seizures Endocrine Medical History: Reports: Hx Diabetes Mellitus Type 2 - no insulin at this time. Patient on Metformin more then 10 years, Hx Hypothyroidism. Denies: Hx Graves' Disease, Hx Hyperthyroidism Renal/ Medical History: Reports: Hx Kidney Stones. Denies: Hx End Stage Renal Disease, Hx Ovarian Cysts, Hx Peritoneal Dialysis, Hx Pelvic Inflammatory Disease Malignancy Medical History: Denies: Hx Breast Cancer, Hx Cervical Cancer, Hx Leukemia, Hx Lung Cancer, Hx Ovarian Cancer GI Medical History: Reports: Hx Gastroesophageal Reflux Disease, Hx Hiatal Hernia. Denies: Hx Crohn's Disease, Hx Irritable Bowel, Hx Liver Failure, Hx Pancreatitis, Hx Ulcer Musculoskeletal Medical History: Reports Hx Arthritis, Denies Hx Fibromyalgia, Denies Hx Multiple Sclerosis, Denies Hx Muscular Dystrophy, Reports Hx Musculoskeletal Deformity, Reports Hx Musculoskeletal Trauma Psychiatric Medical History: Reports: Hx Anxiety Denies: Hx Bipolar Disorder, Hx Dementia, Hx Depression, Hx Post Traumatic Stress Disorder, Hx Schizophrenia Traumatic Medical History: Reports: Hx Fractures - right hand Infectious Medical History: Denies: Hx HIV Past Surgical History: Reports: Hx Cholecystectomy, Hx Hysterectomy, Hx Thyroid Surgery. Denies: Hx Appendectomy, Hx Bowel Surgery, Hx Section, Hx Colostomy, Hx Coronary Artery Bypass Graft, Hx Gastric Bypass Surgery, Hx Herniorrhaphy, Hx Mastectomy, Hx Pacemaker, Hx Tonsillectomy, Hx Tubal Ligation - Immunizations Immunizations up to date: No Hx Diphtheria, Pertussis, Tetanus Vaccination: Yes Hx Pneumococcal Vaccination: 12/28/11 Physical Exam - Vital signs Vitals: Temp Pulse Resp BP Pulse Ox 98.4 F 65 16 146/98 H 98 12/31/17 17:38 12/31/17 17:38 12/31/17 17:38 12/31/17 17:38 12/31/17 17:38 Course - Re-evaluation Re-evalutation: Patient seen and examined vital signs reviewed. Laboratory data and imaging were ordered as appropriate for the patient's presenting symptoms and complaint, with consideration of any critical or life threatening conditions that may be associated with their obtained history and exam as noted above. Patient was treated with IV fluids and Toradol Results were reviewed when available and demonstrated unremarkable blood work, UA, and negative CT, she did have a nonobstructing stone in her right kidney, but not in the ureter. The patient was re-evaluated and was stable and improved, pain was resolved Evaluation was most consistent with right flank pain without specific cause, possible renal colic, given prescription for naproxen and advised to follow-up. Results were discussed with the patient at this point, after careful consideration I feel that that patient can be discharged from the emergency department, the patient was educated treatments and reasons to return to the emergency department based on their presumed diagnosis as noted above, they were advised to followup with a primary care physician in 2-3 days. Patient was agreeable to plan of care. *Note is created using voice recognition software and may contain spelling, syntax or grammatical errors. Laboratory 12/31/17 12/31/17 12/31/17 18:02 18:10 18:10 WBC 6.3 RBC 4.36 Hgb 10.4 L Hct 32.9 L MCV 76 L MCH 23.8 L MCHC 31.6 L RDW 18.7 H Plt Count 291 Seg Neutrophils % 42.5 Lymphocytes % 42.5 Monocytes % 11.2 Eosinophils % 3.3 Basophils % 0.5 Absolute Neutrophils 2.7 Absolute Lymphocytes 2.7 Absolute Monocytes 0.7 Absolute Eosinophils 0.2 Absolute Basophils 0.0 Sodium 145.1 H Potassium 3.8 Chloride 104 Carbon Dioxide 30 Anion Gap 11 BUN 10 Creatinine 0.96 Est GFR ( Amer) > 60 Est GFR (Non-Af Amer) 59 L Glucose 111 H Calcium 10.0 Total Bilirubin 0.3 Direct Bilirubin 0.2 Neonat Total Bilirubin Not Reportable Neonat Direct Bilirubin Not Reportable Neonat Indirect Bili Not Reportable AST 21 ALT 19 Alkaline Phosphatase 82 Total Protein 7.7 Albumin 4.3 Urine Color STRAW Urine Appearance CLEAR Urine pH 7.0 Ur Specific [place] 1.009 Urine Protein NEGATIVE Urine Glucose (UA) NEGATIVE Urine Ketones NEGATIVE Urine Blood NEGATIVE Urine Nitrite NEGATIVE Urine Bilirubin NEGATIVE Urine Urobilinogen NEGATIVE Ur Leukocyte Esterase TRACE H Urine WBC (Auto) 1 Urine RBC (Auto) 0 Squamous Epi Cells Auto 2 Urine Mucus (Auto) RARE Urine Ascorbic Acid NEGATIVE Limited or Localized CT 12/31/17 18:30 IMPRESSION: 1. No acute findings within the abdomen or pelvis. 2. Unchanged nonobstructing intrarenal stone within the inferior pole of the duplicated right renal collecting system. No hydronephrosis. 3. Diverticulosis without evidence of diverticulitis. - Vital Signs Vital signs: Temp Pulse Resp BP Pulse Ox 98.3 F 70 18 140/78 H 99 12/31/17 20:08 12/31/17 20:08 12/31/17 20:08 12/31/17 20:08 12/31/17 20:08 - Laboratory Result Diagrams: 12/31/17 18:10 12/31/17 18:10 Laboratory results interpreted by me: 12/31/17 12/31/17 12/31/17 18:02 18:10 18:10 Hgb 10.4 L Hct 32.9 L MCV 76 L MCH 23.8 L MCHC 31.6 L RDW 18.7 H Sodium 145.1 H Est GFR (Non-Af Amer) 59 L Glucose 111 H Ur Leukocyte Esterase TRACE H Discharge - Discharge Clinical Impression: Right flank pain Condition: Stable Disposition: HOME, SELF-CARE Instructions: Flank Pain ([facility]) Additional Instructions: Please return to the emergency department if you have any worsening, or concern of your symptoms. Please return to the emergency department if you develop chest pain, difficulty breathing, severe abdominal pain, or ongoing vomiting. Please follow-up with your primary care physician in 2-3 days and any other recommended physicians. If prescribed, take all medications as directed. If you have any questions or concerns do not hesitate to return the emergency department for evaluation. [email or web address] Marcia Trevizo Prescriptions: Naproxen [Naprosyn] 500 mg PO BID PRN #15 tablet PRN Reason: flank pain
[2017-12-31 18:24] LABS: APPEARANCE,URINE CLEAR; BILIRUBIN,URINE NEGATIVE (NEGATIVE); COLOR,URINE STRAW; GLUCOSE, URINE NEGATIVE (NEGATIVE); KETONES,URINE NEGATIVE (NEGATIVE); LEUKOCYTE ESTERASE,URINE TRACE (NEGATIVE); NITRITE,URINE NEGATIVE (NEGATIVE); PROTEIN,URINE NEGATIVE (NEGATIVE); URINE SPECIFIC GRAVITY 1.009; UROBILINOGEN,URINE NEGATIVE mg/dL (<2.0)
[2017-12-31 18:26] LABS: ABSOLUTE EOSINOPHILS # (AUTO) 0.2 10^3/uL (0.0-0.6); ABSOLUTE LYMPHOCYTES (AUTO) 2.7 10^3/uL (0.5-4.7); ABSOLUTE MONOCYTES (AUTO) 0.7 10^3/uL (0.1-1.4); ABSOLUTE NEUT (AUTO) 2.7 10^3/uL (1.7-8.2); BASOPHILS % (AUTO) 0.5 % (0-2); EOSINOPHILS % (AUTO) 3.3 % (0-6); HEMATOCRIT 32.9 % (36.0-47.0); HEMOGLOBIN 10.4 g/dL (12.0-15.5); LYMPHOCYTES % (AUTO) 42.5 % (13-45); MEAN CORPUSCULAR HEMOGLOBIN 23.8 pg (27.0-33.4); MEAN CORPUSCULAR HGB CONC 31.6 g/dL (32.0-36.0); MEAN CORPUSCULAR VOLUME 76 fl (80-97); MONOCYTES % (AUTO) 11.2 % (3-13); PLATELET COUNT 291 10^3/uL (150-450); RED BLOOD COUNT 4.36 10^6/uL (3.72-5.28); RED CELL DISTRIBUTION WIDTH 18.7 % (11.5-14.0); SEGMENTED NEUTROPHILS % (AUTO) 42.5 % (42-78); TOTAL CELLS COUNTED % (AUTO) 100 %; WHITE BLOOD COUNT 6.3 10^3/uL (4.0-10.5)
[2017-12-31] MEDS ORDERED: NORMAL SALINE 1000 ML 1,000 ML IV ONE (18:31)
[2017-12-31] MEDS ORDERED: KETOROLAC TROMETHAMINE INJ/PF 30 MG/1 ML SDV IV ONE (18:31)
[2017-12-31 18:36] LABS: ALANINE AMINOTRANSFERASE 19 U/L (9-52); ALBUMIN 4.3 g/dL (3.5-5.0); ALKALINE PHOSPHATASE 82 U/L (38-126); ANION GAP 11 (5-19); ASPARTATE AMINO TRANSFERASE 21 U/L (14-36); BILIRUBIN,DIRECT 0.2 mg/dL (0.0-0.4); BILIRUBIN,TOTAL 0.3 mg/dL (0.2-1.3); BLOOD UREA NITROGEN 10 mg/dL (7-20); CARBON DIOXIDE 30 mmol/L (22-30); CHLORIDE 104 mmol/L (98-107); GLUCOSE 111 mg/dL (75-110); POTASSIUM 3.8 mmol/L (3.6-5.0); SODIUM 145.1 mmol/L (137-145); TOTAL PROTEIN 7.7 g/dL (6.3-8.2)
--- NOTE | 2017-12-31 19:25 | RADIOLOGY REPORT (SQ) ---
EXAM DESCRIPTION: CT LTD RENAL STONE PROTOCOL ON COMPLETED DATE/TIME: 12/31/2017 7:00 pm REASON FOR STUDY: right flank pain, hx stones COMPARISON: 10/04/2017 and earlier TECHNIQUE: CT scan of the abdomen and pelvis performed without intravenous or oral contrast. Images reviewed with lung, soft tissue, and bone windows. Reconstructed coronal and sagittal MPR images revi ewed. All images stored on PACS. All CT scanners at this facility use dose modulation, iterative reconstruction, and/or weight based d osing when appropriate to reduce radiation dose to as low as reasonably achievable (ALARA). [facility]: Dose Right [facility]: CareDose [facility]: Dose Right [facility]: Teradose 4D [facility]: Smart [employer] RADIATION DOSE: CT Rad equipment meets quality standard of care and radiation dose reduction techniq ues were employed. CTDIvol: 9.0 mGy. DLP: 447 mGy-cm.mGy. LIMITATIONS: None. FINDINGS: LOWER CHEST: No significant findings. No nodules or infiltrates. NON-CONTRASTED LIVER, SPLEEN, ADRENALS: Evaluation limited by lack of IV contrast. No identified sign ificant masses. PANCREAS: No masses. No peripancreatic inflammatory changes. GALLBLADDER: Surgically absent. RIGHT KIDNEY AND URETER: Duplicated right renal collecting system with unchanged focal atrophy of th e inferior pole of the right kidney. Unchanged 6 mm intrarenal nonobstructive stone within the infer ior pole. No new nephrolithiasis. No hydronephrosis or hydroureter. No suspicious masses; however, assessment suboptimal without the use of intravenous contrast. LEFT KIDNEY AND URETER: No suspicious masses. Assessment limited by lack of IV contrast. No signifi cant calcifications. No hydronephrosis or hydroureter. AORTA AND RETROPERITONEUM: No aneurysm. Mild calcified plaque. No retroperitoneal masses or adenopa thy. BOWEL AND PERITONEAL CAVITY: No dilated loops of bowel. Few scattered diverticula of the colon. No inflammatory changes to suggest diverticulitis. No obvious masses or inflammatory changes. No free f luid. No intraperitoneal free air. APPENDIX: Normal. PELVIS, BLADDER, AND ABDOMINAL WALL:Uterus is absent. Urinary bladder is normal. No pelvic free flu id. BONES: Unchanged scattered degenerative changes. No sinister bone lesion. OTHER: No other significant finding. IMPRESSION: 1. No acute findings within the abdomen or pelvis. 2. Unchanged nonobstructing intrarenal stone within the inferior pole of the duplicated right renal c ollecting system. No hydronephrosis. 3. Diverticulosis without evidence of diverticulitis. COMMENT: Quality ID # [id number]: Final reports with documentation of one or more dose reduction techniques (e.g., Automated exposure control, adjustment of the mA and/or kV according to patient size, use of iterative reconstruction technique) TECHNICAL DOCUMENTATION: JOB ID: [id number] [employer]- All Rights Reserved Reading location - IP/workstation name: [email or web address]
[2017-12-31 20:25] VITALS: BP 140/78
== END 2017-12-31 20:09 | disposition home or self-care (01) ==
LOC: ER 17:35
DX: R10.9 Unspecified abdominal pain (principal); E78.00 Pure hypercholesterolemia, unspecified; I10 Essential (primary) hypertension; Z87.442 Personal history of urinary calculi; Z86.711 Personal history of pulmonary embolism; Z88.3 Allergy status to other anti-infective agents; Z90.49 Acquired absence of other specified parts of digestive tract; Z90.710 Acquired absence of both cervix and uterus
CPT/HCPCS: 99284; 96361; 96374; 36415; 85025; 80053; 81001; 76380; J1885; J7030

== ENCOUNTER → 2018-02-13 | Outpatient (CLI) | payer BC, MEDICARE ==
--- NOTE | 2018-02-13 11:33 | WOMENS IMAGING REPORT ---
EXAM DESCRIPTION: 3D SCREENING MAMMO BILAT COMPLETED DATE/TIME: 02/13/2018 8:55 am REASON FOR STUDY: SCREENING MAMMO Z12.31 ENCNTR SCREEN MAMMOGRAM FOR MALIGNANT NEOPLASM OF ANTONIO COMPARISON: Multiple since 2010 TECHNIQUE: Standard craniocaudal and mediolateral oblique views of each breast recorded using digita l acquisition and breast tomosynthesis. LIMITATIONS: None. FINDINGS: No masses, calcifications or architectural distortion. No areas of suspicion. Read with the assistance of CAD. .[facility] - R2 Cenova Version 1.3 .[facility] - R2 Cenova Version 1.3 .[facility] - R2 Cenova Version 2.4 .[facility] - R2 Cenova Version 2.4 .[facility] - R2 Csr Version 9.2 IMPRESSION: NORMAL MAMMOGRAM. BIRADS 1. BREAST DENSITY: b. There are scattered areas of fibroglandular density. BIRAD: 1 NEGATIVE RECOMMENDATION: ROUTINE SCREENING Please continue yearly bilateral screening mammography/tomosynthesis in January 2019 COMMENT: The patient has been notified of the results by letter per SA requirements. Additional no tification policies are in place for contacting patient with suspicious or incomplete findings. Quality ID #[id number]: The [employer] recommends an annual screening mammogram for women aged 40 years or over. This facility utilizes a reminder system to ensure that all patients receive reminder letters, and/or direct phone calls for appointments. This includes reminders for routine scr eening mammograms, diagnostic mammograms, or other Breast Imaging Interventions when appropriate. Th is patient will be placed in the appropriate reminder system. The [employer] (ACR) has developed recommendations for screening MRI of the breast s in certain patient populations, to be used in conjunction with mammography. Breast MRI surveillanc e may be appropriate for women with more than 20% lifetime risk of developing breast cancer as deter mined by genetic testing, significant family history of the disease, or history of mantle radiation f or Hodgkins Disease. ACR Practice Guidelines 2008. DBT Technology DBT is a type of tomographic mammography. With conventional mammography, overlapping breast tissue ma y make lesions difficult to detect, even with good compression. DBT uses an x-ray tube that rotates a round the breast, taking images at different angles. These images are then combined to create thin sl ices of the breast that the radiologist can view as a 3D reconstruction. The [place] unit can perform full-field digital mammograms (2D imaging); or DBT (3D imaging); or both, in a combination mode that quickly performs both the mammogram and the tomosynthesis scan while the breast is still compressed. PQRS 6045F: Fluoroscopic imaging is not utilized for breast tomosynthesis. TECHNICAL DOCUMENTATION: FINDING NUMBER: (1) ASSESSMENT: (1) JOB ID: [id number] [employer]- All Rights Reserved Reading location - IP/workstation name: [email or web address]-[email or web address]
== END ==
LOC: WI 08:38
PROVIDERS: ATTEND Physician Assistant
DX: Z12.31 Encounter for screening mammogram for malignant neoplasm of breast (principal)
CPT/HCPCS: 77063; 77067

== ENCOUNTER 2018-07-15 23:26 | Emergency (ER) | payer BC, MEDICARE ==
--- NOTE | 2018-07-16 00:38 | ER Document Report ---
ED Medical Screen (RME) - General Chief Complaint: Chest Pain Stated Complaint: CHEST DISCOMFORT Time Seen by Provider: 07/16/18 00:35 Primary Care Provider: WESTLEY BEAL PA-C [Primary Care Provider] - Follow up as needed Notes: 62-year-old female with chief complaint of intermittent chest discomfort since yesterday, pain is in the center of her chest, radiates from one side to the other. Denies pain in her back or abdomen. Denies history of [place] but does report history of PE, she is on Xarelto. Also has been monitored for a 4.2 cm aortic aneurysm, states she just got this reimaged. TRAVEL OUTSIDE OF THE [place] IN LAST 30 DAYS: No - Related Data Allergies/Adverse Reactions: cephalexin monohydrate [From Keflex] Allergy (Verified 12/31/17 17:36) sulfamethoxazole [From Bactrim] Allergy (Verified 12/31/17 17:36) trimethoprim [From Bactrim] Allergy (Verified 12/31/17 17:36) Past Medical History - Past Medical History Cardiac Medical History: Reports: Hx Hypercholesterolemia, Hx Hypertension, Hx Pulmonary Embolism Denies: Hx Atrial Fibrillation, Hx Congestive Heart Failure, Hx Coronary Artery Disease, Hx Heart Attack, Hx Peripheral Vascular Disease, Hx Heart Murmur Pulmonary Medical History: Reports: Hx Asthma, Hx Bronchitis, Hx COPD, Hx Pneumonia, Hx Sleep Apnea - bipap at home Denies: Hx Respiratory Failure, Hx Tuberculosis Neurological Medical History: Reports: Hx Cerebrovascular Accident. Denies: Hx Seizures Endocrine Medical History: Reports: Hx Diabetes Mellitus Type 2 - no insulin at this time. Patient on Metformin more then 10 years, Hx Hypothyroidism. Denies: Hx Graves' Disease, Hx Hyperthyroidism Renal/ Medical History: Reports: Hx Kidney Stones. Denies: Hx End Stage Renal Disease, Hx Ovarian Cysts, Hx Peritoneal Dialysis, Hx Pelvic Inflammatory Disease Malignancy Medical History: Denies: Hx Breast Cancer, Hx Cervical Cancer, Hx Leukemia, Hx Lung Cancer, Hx Ovarian Cancer GI Medical History: Reports: Hx Gastroesophageal Reflux Disease, Hx Hiatal Hernia. Denies: Hx Crohn's Disease, Hx Irritable Bowel, Hx Liver Failure, Hx Pancreatitis, Hx Ulcer Musculoskeltal Medical History: Reports Hx Arthritis, Denies Hx Fibromyalgia, Denies Hx Multiple Sclerosis, Denies Hx Muscular Dystrophy, Reports Hx Musculoskeletal Deformity, Reports Hx Musculoskeletal Trauma, Denies Hx Systemic Lupus Erythematosus Psychiatric Medical History: Reports: Hx Anxiety Denies: Hx Bipolar Disorder, Hx Dementia, Hx Depression, Hx Post Traumatic Stress Disorder, Hx Schizophrenia Traumatic Medical History: Reports: Hx Fractures - right hand Infectious Medical History: Denies: Hx HIV Past Surgical History: Reports: Hx Cholecystectomy, Hx Hysterectomy, Hx Thyroid Surgery. Denies: Hx Appendectomy, Hx Bowel Surgery, Hx Section, Hx Colostomy, Hx Coronary Artery Bypass Graft, Hx Gastric Bypass Surgery, Hx Herniorrhaphy, Hx Mastectomy, Hx Pacemaker, Hx Tonsillectomy, Hx Tubal Ligation - Immunizations Immunizations up to date: No Hx Diphtheria, Pertussis, Tetanus Vaccination: Yes Physical Exam - Vital signs Vitals: Temp Pulse Resp BP Pulse Ox 98.3 F 59 L 20 175/96 H 96 07/16/18 00:07/16/18 00:07/16/18 00:07/16/18 00:07/16/18 00:17 - Respiratory Respiratory status: No respiratory distress Breath sounds: Normal, Decreased air movement - Cardiovascular Rhythm: Regular. No: Tachycardia Heart sounds: Normal auscultation, S1 appreciated, S2 appreciated Course - Re-evaluation Re-evalutation: Patient does have concerning history including pulmonary embolism, thoracic aortic aneurysm, however she is extremely well-appearing, playing on her phone, reporting intermittent nonradiating pain, no signs of distress. Based on presentation at this time I do not suspect that she has an ongoing dissection. Work-up pending I have greeted and performed a rapid initial assessment of this patient. A comprehensive ED assessment and evaluation of the patient, analysis of test results and completion of the medical decision making process will be conducted by additional ED providers. - Vital Signs Vital signs: Temp Pulse Resp BP Pulse Ox 98.3 F 59 L 20 175/96 H 96 07/16/18 00:07/16/18 00:07/16/18 00:07/16/18 00:07/16/18 00:17 Doctor's Discharge - Discharge Referrals: WESTLEY BEAL PA-C [Primary Care Provider] - Follow up as needed
[2018-07-16 00:52] LABS: ABSOLUTE EOSINOPHILS # (AUTO) 0.1 10^3/uL (0.0-0.6); ABSOLUTE LYMPHOCYTES (AUTO) 2.5 10^3/uL (0.5-4.7); ABSOLUTE MONOCYTES (AUTO) 0.7 10^3/uL (0.1-1.4); ABSOLUTE NEUT (AUTO) 2.6 10^3/uL (1.7-8.2); BASOPHILS % (AUTO) 0.4 % (0-2); EOSINOPHILS % (AUTO) 2.4 % (0-6); HEMATOCRIT 35.5 % (36.0-47.0); HEMOGLOBIN 11.2 g/dL (12.0-15.5); MEAN CORPUSCULAR HEMOGLOBIN 23.5 pg (27.0-33.4); MEAN CORPUSCULAR HGB CONC 31.5 g/dL (32.0-36.0); MEAN CORPUSCULAR VOLUME 75 fl (80-97); MONOCYTES % (AUTO) 12.4 % (3-13); PLATELET COUNT 285 10^3/uL (150-450); RED BLOOD COUNT 4.75 10^6/uL (3.72-5.28); SEGMENTED NEUTROPHILS % (AUTO) 42.8 % (42-78); TOTAL CELLS COUNTED % (AUTO) 100 %
[2018-07-16 01:10] LABS: ALANINE AMINOTRANSFERASE 16 U/L (9-52); ALBUMIN 4.2 g/dL (3.5-5.0); ALKALINE PHOSPHATASE 76 U/L (38-126); ANION GAP 9 (5-19); ASPARTATE AMINO TRANSFERASE 21 U/L (14-36); BILIRUBIN,DIRECT 0.2 mg/dL (0.0-0.4); BILIRUBIN,TOTAL 0.3 mg/dL (0.2-1.3); BLOOD UREA NITROGEN 10 mg/dL (7-20); CALCIUM 10.2 mg/dL (8.4-10.2); CARBON DIOXIDE 31 mmol/L (22-30); CHLORIDE 105 mmol/L (98-107); GLUCOSE 89 mg/dL (75-110); POTASSIUM 3.8 mmol/L (3.6-5.0); SODIUM 145.3 mmol/L (137-145); TOTAL PROTEIN 7.5 g/dL (6.3-8.2)
[2018-07-16] MEDS ORDERED: ASPIRIN 81 MG TABLET, CHEWABLE PO ONE (01:49)
--- NOTE | 2018-07-16 01:52 | ER Document Report ---
ED Cardiac - General Chief Complaint: Chest Pain Stated Complaint: CHEST DISCOMFORT Time Seen by Provider: 07/16/18 00:35 Primary Care Provider: WESTLEY BEAL PA-C [Primary Care Provider] - Follow up as needed TRAVEL OUTSIDE OF THE [place] IN LAST 30 DAYS: No - HPI Notes: Patient is a 62-year-old female with a history of cardiomegaly, known aortic abdominal aneurysm, diabetes, bilateral PE's in which she is on Xarelto for who presents to the emergency department with a chief complaint of right-sided chest pain. Patient states that yesterday while at work she noticed that she was having an aching feeling to the right side of her chest. Patient states that this is constant and non radiating. Patient reports that the right-sided chest pain is worse with cough. Patient does report a recent dry cough. Patient states she does have a history of bilateral pulmonary emboli in 2011 in which she is currently on Xarelto for. Patient denies nausea vomiting or diarrhea. Patient denies dizziness. Patient denies shortness of breath. Denies calf pain, recent travel or long car rides. - Related Data Allergies/Adverse Reactions: cephalexin monohydrate [From Keflex] Allergy (Verified 12/31/17 17:36) sulfamethoxazole [From Bactrim] Allergy (Verified 12/31/17 17:36) trimethoprim [From Bactrim] Allergy (Verified 12/31/17 17:36) Past Medical History - General Information source: Patient - Social History Smoking Status: Unknown if Ever Smoked Cigarette use (# per day): No Chew tobacco use (# tins/day): No Frequency of alcohol use: None Drug Abuse: None Lives with: Spouse/Significant other Family History: Arthritis, CAD, CVA, Hyperlipidemia, Hypertension, Malignancy, Thyroid Disfunction. denies: DM - Past Medical History Cardiac Medical History: Reports: Hx Hypercholesterolemia, Hx Hypertension, Hx Pulmonary Embolism Denies: Hx Atrial Fibrillation, Hx Congestive Heart Failure, Hx Coronary Artery Disease, Hx Heart Attack, Hx Peripheral Vascular Disease, Hx Heart Murmur Pulmonary Medical History: Reports: Hx Asthma, Hx Bronchitis, Hx COPD, Hx Pneumonia, Hx Sleep Apnea - bipap at home Denies: Hx Respiratory Failure, Hx Tuberculosis EENT Medical History: Reports: None Neurological Medical History: Reports: Hx Cerebrovascular Accident. Denies: Hx Seizures Endocrine Medical History: Reports: Hx Diabetes Mellitus Type 2 - no insulin at this time. Patient on Metformin more then 10 years, Hx Hypothyroidism. Denies: Hx Graves' Disease, Hx Hyperthyroidism Renal/ Medical History: Reports: Hx Kidney Stones. Denies: Hx End Stage Renal Disease, Hx Ovarian Cysts, Hx Peritoneal Dialysis, Hx Pelvic Inflammatory Disease Malignancy Medical History: Denies: Hx Breast Cancer, Hx Cervical Cancer, Hx Leukemia, Hx Lung Cancer, Hx Ovarian Cancer GI Medical History: Reports: Hx Gastroesophageal Reflux Disease, Hx Hiatal Hernia. Denies: Hx Crohn's Disease, Hx Irritable Bowel, Hx Liver Failure, Hx Pancreatitis, Hx Ulcer Musculoskeletal Medical History: Reports Hx Arthritis, Denies Hx Fibromyalgia, Denies Hx Multiple Sclerosis, Denies Hx Muscular Dystrophy, Reports Hx Musculoskeletal Deformity, Reports Hx Musculoskeletal Trauma, Denies Hx Systemic Lupus Erythematosus Psychiatric Medical History: Reports: Hx Anxiety Denies: Hx Bipolar Disorder, Hx Dementia, Hx Depression, Hx Post Traumatic Stress Disorder, Hx Schizophrenia Traumatic Medical History: Reports: Hx Fractures - right hand Infectious Medical History: Reports: None. Denies: Hx HIV Past Surgical History: Reports: Hx Cholecystectomy, Hx Hysterectomy, Hx Thyroid Surgery. Denies: Hx Appendectomy, Hx Bowel Surgery, Hx Section, Hx Colostomy, Hx Coronary Artery Bypass Graft, Hx Gastric Bypass Surgery, Hx Herniorrhaphy, Hx Mastectomy, Hx Pacemaker, Hx Tonsillectomy, Hx Tubal Ligation - Immunizations Immunizations up to date: No Hx Diphtheria, Pertussis, Tetanus Vaccination: Yes Hx Pneumococcal Vaccination: 12/28/11 Review of Systems - Review of Systems Constitutional: No symptoms reported EENT: No symptoms reported Cardiovascular: See HPI Respiratory: See HPI Gastrointestinal: No symptoms reported Genitourinary: No symptoms reported Female Genitourinary: No symptoms reported Musculoskeletal: No symptoms reported Skin: No symptoms reported Hematologic/Lymphatic: No symptoms reported Neurological/Psychological: No symptoms reported Physical Exam - Vital signs Vitals: Temp Pulse Resp BP Pulse Ox 98.3 F 59 L 20 175/96 H 96 07/16/18 00:17 07/16/18 00:17 07/16/18 00:17 07/16/18 00:17 07/16/18 00:17 Interpretation: Hypertensive - Notes Notes: GENERAL: Well-appearing, well-nourished and in no acute distress. HEAD: Atraumatic, normocephalic. EYES: Pupils equal round and reactive to light, extraocular movements intact, sclera anicteric, conjunctiva are normal. ENT: TMs normal, nares patent, oropharynx clear without exudates. Moist mucous membranes. NECK: Normal range of motion, supple without lymphadenopathy or JVD. LUNGS: Breath sounds clear to auscultation bilaterally and equal. No wheezes rales or rhonchi. HEART: Regular rate and rhythm without murmurs, rubs or gallops. Reproducible worsening chest pain with palpation. ABDOMEN: Soft, nontender, normoactive bowel sounds. No guarding, no rebound. No masses appreciated. EXTREMITIES: Normal range of motion, no pitting or edema. No clubbing or cyanosis. NEUROLOGICAL: Cranial nerves II through XII grossly intact. Normal speech, normal gait. PSYCH: Normal mood, normal affect. SKIN: Warm, Dry, normal turgor, no rashes or lesions noted. Course - Re-evaluation Re-evalutation: 07/16/18 01:52 Heart score 4, Wells score 1.5 with low risk. 07/16/18 02:35 After receiving dose of aspirin patient continues to complain of right-sided chest pain. Is hypertensive. Will give dose of pain medication. 07/16/18 04:30 Patient has received sublingual nitro x 1 with no relief of her chest discomfort. Patient states that all the SL nitro did was give her a headache. Repeat Troponin is pending. 07/16/18 05:21 Repeat delta Troponin negative. Patient reports that her chest pain remains at a 3/5. Discussed case with Dr. Magallanes who advised to have a conversation with patient regarding admission versus discharge. Clarified chest pain description with patient - patient continues to state that the chest pain is worse with cough and with bending over. This does appear to be atypical chest pain. Informed patient that although her work up was unremarkable tonight I cannot rule out a significant cardiac event within the next few weeks. I have offered patient possible admission for further testing as well as discharge. Patient states she feels comfortable going home and will follow up with her photo tube assembler Tuesday - who is Dr. Juárez. Discussed strict return precautions with patient to include worsening or change in chest pain, dizziness, diaphoresis, shortness of breath, or any other concerning signs or symptoms. Patient is resting comfortably on stretcher, in no acute distress. - Vital Signs Vital signs: Temp Pulse Resp BP Pulse Ox 98.3 F 59 L 18 138/83 H 99 07/16/18 00:17 07/16/18 00:17 07/16/18 05:31 07/16/18 05:31 07/16/18 05:31 - Laboratory Result Diagrams: 07/16/18 00:45 07/16/18 00:45 Laboratory results interpreted by me: 07/16/18 07/16/18 00:45 00:45 Hgb 11.2 L Hct 35.5 L MCV 75 L MCH 23.5 L MCHC 31.5 L RDW 17.0 H Sodium 145.3 H Carbon Dioxide 31 H - Diagnostic Test Radiology reviewed: Reports reviewed Radiology results interpreted by me: 07/16/18 Cardiomegaly. - EKG Interpretation by Me EKG shows normal: Sinus rhythm Rate: Normal Rhythm: NSR Equality/QRS: Left axis deviation Voltage: Consistant with LVH When compared to previous EKG there are: No significant change Additional EKG results interpreted by me: No ST changes in consistent leads Discharge - Discharge Clinical Impression: Chest wall pain Condition: Stable Disposition: HOME, SELF-CARE Additional Instructions: Today you were seen in the emergency department for chest pain. Your lab work, chest x-ray and EKG were unremarkable. Please follow up with your photo tube assembler on Tuesday after the holiday to schedule a follow up. Please seek immediate medical attention if your chest pain changes or worsens, you develop a fever, shortness of breath, dizziness, passing out, or any other concerning signs or symptoms. Pleurisy Your chest pain has been diagnosed as pleuritis (pleurisy). This is an inflammation of the surface of the lung tissue. It can be caused by a virus or, occasionally, old scar tissue. It is painful but, for the most part, not a serious problem. This pain is usually made worse by deep breathing, coughing, or sudden movements of the upper body or arms. The treatment is relief of symptoms. It includes rest, antiinflammatory medication, and pain medicine. Resolution of the pain is usually rapid once antiinflammatory medication is started. Warning signs of a more serious problem include: a fever, shortness of breath, pain that radiates to your jaw, shoulders or arms, or coughing up bloody sputum. If any of these symptoms occur, call the physician at once. Chest Pain of Unclear Cause The exact cause of your chest pain isn't clear. Fortunately, there is no evidence of a dangerous medical condition. Further testing may be required to find the source of the pain. Most often, we find that this pain is coming from the chest wall -- the muscles or rib joints in the chest. But chest pain can come from the lung and lung lining, the esophagus, the heart valves or heart lining, and even the stomach or gallbladder. Rest. Eat lightly until the pain is gone. We may prescribe medicine for pain and inflammation. You should call the physician immediately if the pain radiates to the shoulder, jaw or arms; if you start to run a fever or develop a cough; or if you develop shortness of breath, or other new or alarming symptoms. Referrals: WESTLEY BEAL PA-C [Primary Care Provider] - Follow up as needed
--- NOTE | 2018-07-16 01:57 | RADIOLOGY REPORT (SQ) ---
EXAM DESCRIPTION: XR CHEST 1 VIEW COMPLETED DATE/TME: 07/16/2018 00:36 CLINICAL HISTORY: 62 years, Female, chest pain COMPARISON: 09/11/2015 NUMBER OF VIEWS: One TECHNIQUE: AP view of the chest LIMITATIONS: None. FINDINGS: The lungs are clear. The heart is enlarged. There is no pneumothorax or pleural effusion. There is no acute fracture. IMPRESSION: Cardiomegaly. copyright 2010 [employer]- All Rights Reserved
[2018-07-16] MEDS ORDERED: MORPHINE SULFATE 10 MG/ML INJ IV ONE (02:35)
[2018-07-16] MEDS ORDERED: ACETAMINOPHEN 325 MG TABLET PO ONE (03:17)
[2018-07-16] MEDS ORDERED: NITROGLYCERIN 0.4 MG/TAB 25 TAB/BOTTLE SL ONE (03:47)
[2018-07-16 05:34] VITALS: BP 138/83
--- NOTE | 2018-07-16 16:26 | EKG REPORT ---
SEVERITY:- ABNORMAL ECG - SINUS RHYTHM LVH WITH SECONDARY REPOLARIZATION ABNORMALITY : Confirmed by: Cassie Banuelos 16-Jul-2018 16:25:26
== END 2018-07-16 05:39 | disposition home or self-care (01) ==
LOC: ER 23:26
DX: R07.89 Other chest pain (principal); I13.11 Hypertensive heart and chronic kidney disease without heart failure, with stage 5 chronic kidney disease, or end stage renal disease; N18.6 End stage renal disease; R05 Cough; J44.9 Chronic obstructive pulmonary disease, unspecified
CPT/HCPCS: 36415; 71045; 80053; 84484; 85025; 93005; 93010; 99285

== ENCOUNTER 2018-09-13 15:54 | Observation (INO) | payer BC, MEDICARE ==
[2018-09-13 16:25] LABS: ABSOLUTE EOSINOPHILS # (AUTO) 0.1 10^3/uL (0.0-0.6); ABSOLUTE LYMPHOCYTES (AUTO) 2.8 10^3/uL (0.5-4.7); ABSOLUTE MONOCYTES (AUTO) 0.7 10^3/uL (0.1-1.4); ABSOLUTE NEUT (AUTO) 3.3 10^3/uL (1.7-8.2); BASOPHILS % (AUTO) 0.6 % (0-2); EOSINOPHILS % (AUTO) 2.1 % (0-6); HEMATOCRIT 34.3 % (36.0-47.0); HEMOGLOBIN 10.9 g/dL (12.0-15.5); LYMPHOCYTES % (AUTO) 40.2 % (13-45); MEAN CORPUSCULAR HEMOGLOBIN 23.5 pg (27.0-33.4); MEAN CORPUSCULAR HGB CONC 31.8 g/dL (32.0-36.0); MEAN CORPUSCULAR VOLUME 74 fl (80-97); MONOCYTES % (AUTO) 9.9 % (3-13); PLATELET COUNT 288 10^3/uL (150-450); RED BLOOD COUNT 4.63 10^6/uL (3.72-5.28); RED CELL DISTRIBUTION WIDTH 16.9 % (11.5-14.0); SEGMENTED NEUTROPHILS % (AUTO) 47.2 % (42-78); TOTAL CELLS COUNTED % (AUTO) 100 %
[2018-09-13] MEDS ORDERED: NITROGLYCERIN 2% OINTMENT 1 GM PACKET TP ONE (16:33)
[2018-09-13] MEDS ORDERED: CLONIDINE HCL 0.1 MG TABLET PO ONE (16:33)
[2018-09-13] MEDS ORDERED: CLONIDINE HCL 0.2 MG TABLET PO ONE (16:35)
--- NOTE | 2018-09-13 16:40 | ER Document Report ---
ED Cardiac - General Chief Complaint: Chest Pain Stated Complaint: CHEST PAIN Time Seen by Provider: 09/13/18 16:21 Primary Care Provider: WESTLEY BEAL PA-C [NURSE PRACTITIONER] - Follow up as needed Information source: Patient Notes: HPI: Patient is a 62-year-old female with past medical history as recorded including on chronic warfarin secondary to blood clots in 2011 who presents today stating some chest discomfort starting yesterday. She states it has been constant, substernal, no radiation, no nausea, vomiting, fevers, calf pain or leg swelling, shortness of breath, or diaphoresis. Patient states it is slightly worse when she bends over. She denies any fevers, runny nose or congestion. She denies any and all shortness of breath, calf pain or leg swelling. Patient is noted to have an elevated blood pressure and she states she is supposed to take clonidine tablet if her blood pressure was greater than 150/80. She is followed by Dr. Connor Sloan. ROS: See HPI All other review of systems reviewed and otherwise negative Reviewed vital signs and nursing note as charted by RN. PHYSICAL EXAM: CONSTITUTIONAL: Alert and oriented and responds appropriately to questions. Well-appearing; well-nourished HEAD: Normocephalic; atraumatic CARD: Bradycardic and regular; no murmurs; symmetric distal pulses RESP: Normal chest excursion without splinting or tachypnea; breath sounds clear and equal bilaterally; no wheezes, no rhonchi, no rales ABD/GI: Normal bowel sounds; non-distended; soft, non-tender BACK: The back appears normal and is non-tender to palpation EXT: Normal ROM in all joints; non-tender to palpation; no edema SKIN: No acute lesions noted NEURO: CN 2-12 intact; 5/5 bilateral upper and lower extremity strength with sensation intact to light touch PSYCH: The patient's mood and manner are appropriate. Grooming and personal hygiene are appropriate. TRAVEL OUTSIDE OF THE [place] IN LAST 30 DAYS: No - Related Data Allergies/Adverse Reactions: cephalexin monohydrate [From Keflex] Allergy (Verified 09/13/18 16:28) sulfamethoxazole [From Bactrim] Allergy (Verified 09/13/18 16:28) trimethoprim [From Bactrim] Allergy (Verified 09/13/18 16:28) Past Medical History - Social History Smoking Status: Unknown if Ever Smoked Family History: Arthritis, CAD, CVA, Hyperlipidemia, Hypertension, Malignancy, Thyroid Disfunction. denies: DM Patient has suicidal ideation: No Patient has homicidal ideation: No - Past Medical History Cardiac Medical History: Reports: Hx Hypercholesterolemia, Hx Hypertension, Hx Pulmonary Embolism Denies: Hx Atrial Fibrillation, Hx Congestive Heart Failure, Hx Coronary Artery Disease, Hx Heart Attack, Hx Peripheral Vascular Disease, Hx Heart Murmur Pulmonary Medical History: Reports: Hx Asthma, Hx Bronchitis, Hx COPD, Hx Pneumonia, Hx Sleep Apnea - bipap at home Denies: Hx Respiratory Failure, Hx Tuberculosis Neurological Medical History: Reports: Hx Cerebrovascular Accident. Denies: Hx Seizures Endocrine Medical History: Reports: Hx Diabetes Mellitus Type 2 - no insulin at this time. Patient on Metformin more then 10 years, Hx Hypothyroidism. Denies: Hx Graves' Disease, Hx Hyperthyroidism Renal/ Medical History: Reports: Hx Kidney Stones. Denies: Hx End Stage Renal Disease, Hx Ovarian Cysts, Hx Peritoneal Dialysis, Hx Pelvic Inflammatory Disease Malignancy Medical History: Denies: Hx Breast Cancer, Hx Cervical Cancer, Hx Leukemia, Hx Lung Cancer, Hx Ovarian Cancer GI Medical History: Reports: Hx Gastroesophageal Reflux Disease, Hx Hiatal Hernia. Denies: Hx Crohn's Disease, Hx Irritable Bowel, Hx Liver Failure, Hx Pancreatitis, Hx Ulcer Musculoskeletal Medical History: Reports Hx Arthritis, Denies Hx Fibromyalgia, Denies Hx Multiple Sclerosis, Denies Hx Muscular Dystrophy, Reports Hx Musculoskeletal Deformity, Reports Hx Musculoskeletal Trauma, Denies Hx Systemic Lupus Erythematosus Psychiatric Medical History: Reports: Hx Anxiety Denies: Hx Bipolar Disorder, Hx Dementia, Hx Depression, Hx Post Traumatic Stress Disorder, Hx Schizophrenia Traumatic Medical History: Reports: Hx Fractures - right hand Infectious Medical History: Denies: Hx HIV Past Surgical History: Reports: Hx Cholecystectomy, Hx Hysterectomy, Hx Thyroid Surgery. Denies: Hx Appendectomy, Hx Bowel Surgery, Hx Section, Hx Colostomy, Hx Coronary Artery Bypass Graft, Hx Gastric Bypass Surgery, Hx Herniorrhaphy, Hx Mastectomy, Hx Pacemaker, Hx Tonsillectomy, Hx Tubal Ligation - Immunizations Immunizations up to date: No Hx Diphtheria, Pertussis, Tetanus Vaccination: Yes Hx Pneumococcal Vaccination: 12/28/11 Physical Exam - Vital signs Vitals: Pulse Ox 99 09/13/18 16:25 Course - Re-evaluation Re-evalutation: 09/13/18 16:39 Given the above history and physical examination, we will order a cardiac panel, EKG, x-ray of the chest, and reassess. Given the patient's elevated blood pressure, I will provide 0.2 mg of clonidine. I do believe aortic dissection to be extremely unlikely. Given that the patient is bradycardic, satting 100% on room air, with no complaints of shortness of breath, already on Coumadin, I do believe pulmonary embolism to be very unlikely. EKG shows a heart of 67, normal sinus rhythm, LVH, left axis deviation, no obvious ST elevation or depression 09/13/18 17:21 Cardiac labs as recorded. EKG as recorded. X-ray of the chest shows some mild cardiomegaly. Given that the patient's INR is 1.3, stating only a very mild cough with chest discomfort leaning forward, I will order a CTA of the chest. If this is unremarkable, with the elevated blood pressure, I do anticipate admission. - Vital Signs Vital signs: Temp Pulse Resp BP Pulse Ox 98.1 F 20 148/104 H 99 09/13/18 16:31 09/13/18 17:02 09/13/18 17:01 09/13/18 17:02 - Laboratory Result Diagrams: 09/13/18 16:09 09/13/18 16:09 Laboratory results interpreted by me: 09/13/18 09/13/18 09/13/18 16:09 16:09 16:09 Hgb 10.9 L Hct 34.3 L MCV 74 L MCH 23.5 L MCHC 31.8 L RDW 16.9 H PT 16.3 H Potassium 3.0 L* Est GFR ( Amer) 54 L Est GFR (Non-Af Amer) 45 L Glucose 115 H Creatine Kinase 339 H Discharge - Discharge Clinical Impression: Hypertensive urgency, malignant Chest pain Qualifiers: Chest pain type: unspecified Qualified Code(s): R07.9 - Chest pain, unspecified Condition: Fair Disposition: ADMITTED INPATIENT Admitting Provider: Julisa (Hospitalist) Unit Admitted: [facility]U Referrals: WESTLEY BEAL PA-C [NURSE PRACTITIONER] - Follow up as needed
[2018-09-13 16:47] LABS: PROTHROMBIN TIME 16.3 SEC (11.4-15.4)
[2018-09-13 16:52] LABS: ALANINE AMINOTRANSFERASE 26 U/L (9-52); ALBUMIN 3.9 g/dL (3.5-5.0); ALKALINE PHOSPHATASE 87 U/L (38-126); ANION GAP 7 (5-19); ASPARTATE AMINO TRANSFERASE 26 U/L (14-36); BILIRUBIN,DIRECT 0.2 mg/dL (0.0-0.4); BILIRUBIN,TOTAL 0.2 mg/dL (0.2-1.3); BLOOD UREA NITROGEN 16 mg/dL (7-20); CALCIUM 9.3 mg/dL (8.4-10.2); CARBON DIOXIDE 29 mmol/L (22-30); CHLORIDE 106 mmol/L (98-107); CREATINE KINASE 339 U/L (30-135); GLUCOSE 115 mg/dL (75-110); TOTAL PROTEIN 7.1 g/dL (6.3-8.2)
[2018-09-13] MEDS ORDERED: POTASSI CL 20 MEQ/50 ML RIDER 20 MEQ/50 ML RTUPB IV ONE (16:58)
--- NOTE | 2018-09-13 17:01 | RADIOLOGY REPORT (SQ) ---
EXAM DESCRIPTION: CHEST SINGLE VIEW COMPLETED DATE/TIME: 09/13/2018 4:42 pm REASON FOR STUDY: 19; CP COMPARISON: 07/16/2018 EXAM PARAMETERS: NUMBER OF VIEWS: One view. TECHNIQUE: Single frontal radiographic view of the chest acquired. RADIATION DOSE: NA LIMITATIONS: None. FINDINGS: LUNGS AND PLEURA: No opacities, masses or pneumothorax. No pleural effusion. MEDIASTINUM AND HILAR STRUCTURES: No masses. Contour normal. HEART AND VASCULAR STRUCTURES: Cardiomegaly. No pulmonary edema. BONES: No acute findings. HARDWARE: None in the chest. OTHER: No other significant finding. IMPRESSION: Cardiomegaly without pulmonary edema. TECHNICAL DOCUMENTATION: JOB ID: [id number] [employer]- All Rights Reserved Reading location - IP/workstation name: [email or web address]
[2018-09-13 17:02] LABS: CREATINE KINASE MB 2.03 ng/mL (<4.55)
[2018-09-13 17:05] LABS: TROPONIN I < 0.012 ng/mL
--- NOTE | 2018-09-13 18:14 | RADIOLOGY REPORT (SQ) ---
EXAM DESCRIPTION: CTA CHEST COMPLETED DATE/TIME: 09/13/2018 5:40 pm REASON FOR STUDY: 19; cp COMPARISON: 11/25/2017 TECHNIQUE: CT scan of the chest performed using helical scanning technique with dynamic intravenous contrast injection. Images reviewed with lung, soft tissue and bone windows. Reconstructed coronal and sagittal MPR images reviewed. Additional 3 dimensional post-processing performed to develop Maximal Intensity Projection images (SC P). All images stored on PACS. All CT scanners at this facility use dose modulation, iterative reconstruction, and/or weight based d osing when appropriate to reduce radiation dose to as low as reasonably achievable (ALARA). [facility]: Dose Right [facility]: CareDose [facility]: Dose Right [facility]: Teradose 4D [facility]: Moove In CONTRAST TYPE AND DOSE: contrast/concentration: Isovue 350.00 mg/ml; Total Contrast Delivered: 64.0 ml; Total Saline Delivered: 55.0 ml Contrast bolus adequate for pulmonary arteries and aorta. RENAL FUNCTION: BUN 16 creatinine 1.2 RADIATION DOSE: CT Rad equipment meets quality standard of care and radiation dose reduction techniq ues were employed. CTDIvol: 15.5 - 26.4 mGy. DLP: 606 mGy-cm. . LIMITATIONS: None. FINDINGS: LUNGS AND PLEURA: There is a thin walled pneumatocoele in the right lung on image 37. No mass, infiltrate, or effusion. AORTA AND GREAT VESSELS: No aneurysm. No dissection. HEART: No pericardial effusion. No significant coronary artery calcifications. PULMONARY ARTERIES: No emboli visualized in the main pulmonary arteries or the segmental branches. HILAR AND MEDIASTINAL STRUCTURES: Stable low-density structures to the right side of the aortic arch. No adenopathy. No mass. HARDWARE: None in the chest. UPPER ABDOMEN: There is cortical scarring in the right kidney. THYROID AND OTHER SOFT TISSUES: No masses. No adenopathy. BONES: No acute or significant finding. 3D MIPS: Confirm above findings. OTHER: No other significant finding. IMPRESSION: There is no pulmonary embolus. There is no aortic aneurysm or dissection. Findings as described. COMMENT: Quality ID # [id number]: Final reports with documentation of one or more dose reduction techniques (e.g., Automated exposure control, adjustment of the mA and/or kV according to patient size, use of iterative reconstruction technique) TECHNICAL DOCUMENTATION: JOB ID: [id number]- All Rights Reserved Reading location - IP/workstation name: [email or web address]
[2018-09-13] MEDS ORDERED: ONDANSETRON HCL INJ/PF 4 MG/2 ML SDV IV PRN (18:21)
[2018-09-13] MEDS ORDERED: MORPHINE SULFATE 10 MG/ML INJ IV PRN (18:28)
[2018-09-13] MEDS ORDERED: HYDRALAZINE HCL INJ/PF 20 MG/1 ML SDV IV PRN (18:30)
[2018-09-13] MEDS ORDERED: ENOXAPARIN SODIUM INJ 40 MG/0.4 ML DISP.SYRIN SUBCUT SCH (18:30)
[2018-09-13] MEDS ORDERED: DEXTROSE 40% GEL 15 GM TUBE PO PRN ×2 (18:41)
[2018-09-13] MEDS ORDERED: DEXTROSE 50%-WATER 25 GM/50 ML DISP.SYRIN IV PRN ×2 (18:41)
[2018-09-13] MEDS ORDERED: GLUCAGON,HUMAN RECOMB 1 MG INJ IM PRN (18:41)
--- NOTE | 2018-09-13 18:41 | PDOC H&P ---
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 Chest pain started yesterday before she went to bed at the time pain was 5/10 in the middle of the chest behind sternum. Not associated with dizziness not associated nausea no shortness of breath no sweating no radiation of the pain. This morning she went to work took some Tums still continued to have the pain decided to come to the emergency room for further evaluation. In the emergency room she was given aspirin and nitroglycerin and pain is eased off to 3/10. Initial troponin was negative in the emergency room CT of the chest was done to rule out PE which was negative for blood clots. Chest x-ray was negative for pneumonia. Medical consult was called for observation for possible stress test tomorrow. Past Medical History Cardiac Medical History: Reports: Hyperlipidema, Hypertension, Pulmonary Embolism Denies: Atrial Fibrillation, Congestive Heart Failure, Coronary Artery Disease, Myocardial Infarction, Peripheral Vascular Disease, Heart Murmur Pulmonary Medical History: Reports: Asthma, Bronchitis, Chronic Obstructive Pulmonary Disease (COPD), Pneumonia, Sleep Apnea - bipap at home Denies: Respiratory Failure, Tuberculosis Neurological Medical History: Denies: Seizures Endocrine Medical History: Reports: Diabetes Mellitus Type 2 - no insulin at this time. Patient on Metformin more then 10 years, Hypothyroidism Denies: Hyperthyroidism Renal/ Medical History: Denies: End Stage Renal Disease Malignancy Medical History: Denies: Breast Cancer, Cervical Cancer, Leukemia, Lung Cancer, Ovarian Cancer GI Medical History: Reports: Gastroesophageal Reflux Disease, Hiatal Hernia Denies: Crohn's Disease Musculoskeltal Medical History: Reports: Arthritis Denies: Fibromyalgia Psychiatric Medical History: Denies: Bipolar Disorder, Dementia, Depression, Post Traumatic Stress Disorder Hematology: Reports: Anemia Denies: Hemophilia, Sickle Cell Disease Infectious Medical History: Denies: HIV Past Surgical History Past Surgical History: Reports: Cholecystectomy, Hysterectomy Denies: Amputation, Appendectomy, Section, Colostomy, Coronary Artery Bypass Graft, Gastric Bypass Surgery, Herniorrhaphy, Mastectomy, Pacemaker, Tonsillectomy, Tubal Ligation Social History Information Source: Patient Smoking Status: Unknown if Ever Smoked Frequency of Alcohol Use: None Hx Recreational Drug Use: No Hx Prescription Drug Abuse: No - Advance Directive Resuscitation Status: Do Not Resuscitate Family History Family History: Arthritis, CAD, CVA, Hyperlipidemia, Hypertension, Malignancy, Thyroid Disfunction. denies: DM Parental Family History Reviewed: Yes - Elle history of kidney failure, kidney cancer, hypertension. Children Family History Reviewed: Yes Sibling(s) Family History Reviewed.: Yes Medication/Allergy Home Medications: Atenolol [Tenormin 25 mg Tablet] 50 mg PO DAILY 08/31/11 Clonidine HCl [Catapres 0.2 mg Tablet] 0.2 mg PO TID 08/31/11 Ferrous Sulfate [Feosol 325 mg Tablet] 325 mg PO DAILY 08/31/11 Lisinopril [Prinivil 40 mg Tablet] 40 mg PO DAILY 08/31/11 Losartan/Hydrochlorothiazide [Hyzaar 100-12.5 Tablet] 1 tab PO DAILY 08/31/11 Metformin HCl [Glucophage 500 mg Tablet] 500 mg PO BID 08/31/11 Albuterol Sulfate [Proair HFA 200 puff/8.5 gm MDI] 1 puff IH Q4HP PRN 10/26/11 Alprazolam [Xanax 0.5 mg Tablet] 0.5 mg PO TIDP PRN 10/30/11 Cholecalciferol (Vitamin D3) [Vitamin D3 2000 unit Tablet] 2,000 unit PO DAILY 10/30/11 Fluticasone/Salmeterol [Advair 100-50 Diskus] 1 each IH BID 10/30/11 Warfarin Sodium [Coumadin 5 mg Tablet] 4 mg PO QHS 11/01/11 Amlodipine/Atorvast Hero [Caduet 5 Mg-40 Mg Tablet] 1 each PO DAILY 11/11/11 Nitroglycerin [Nitrostat 0.4 mg (1/150 Gr) Tabs 25/Bottle] 0.4 mg SL Q5MP PRN 12/22/11 Lansoprazole [Prevacid] 15 mg PO DAILY #30 capsule. 01/04/14 Ciprofloxacin HCl [Cipro 500 mg Tablet] 500 mg PO BID #20 tablet 03/24/14 Hydrocodone/Acetaminophen [[place] 5-325 mg Tablet] 1 - 2 tab PO ASDIR #15 tablet 04/20/14 Levofloxacin [Levaquin 750 mg Tablet] 750 mg PO DAILY #10 tab 04/20/14 Metronidazole [Flagyl 500 mg Tablet] 500 mg PO TID #30 tablet 04/20/14 Albuterol Sulfate [Proair HFA Inhalation Aerosol 8.5 gm MDI] 2 puff IH Q4H PRN #1 mdi 06/04/14 Azithromycin [Zithromax] 250 mg PO DAILY 5 Days tablet 06/04/14 Prednisone [Deltasone 20 mg Tablet] 3 tab PO DAILY 5 Days tablet 06/04/14 Famotidine [Pepcid 20 mg Tablet] 20 mg PO DAILY #12 tablet 06/21/14 Hydrocodone/Acetaminophen [[place] 5-325 mg Tablet] 1 tab PO Q6HP PRN #10 tablet 06/21/14 Hydrocodone/Acetaminophen [[place] 5-325 mg Tablet] 1 tab PO Q4 PRN #25 tablet 02/04/15 Nitrofurantoin/Nitrofuran Mac [Macrobid 100 mg Capsule] 1 tab PO BID #20 capsule 02/04/15 Hydrocodone/Acetaminophen [Hydrocodon-Acetaminophen 5-325] 1 each PO Q6 #20 tablet 04/25/16 Amox Tr/Potassium Clavulanate [Augmentin 875-125 Tablet] 1 tab PO BID 10 Days tablet 11/17/16 Amox Tr/Potassium Clavulanate [Augmentin 875-125 Tablet] 1 tab PO BID 10 Days tablet 04/30/17 Metronidazole [Flagyl 500 mg Tablet] 500 mg PO BID #20 tablet 04/30/17 Naproxen [Naprosyn] 500 mg PO BID PRN #15 tablet 12/31/17 Allergies/Adverse Reactions: cephalexin monohydrate [From Keflex] Allergy (Verified 09/13/18 16:28) sulfamethoxazole [From Bactrim] Allergy (Verified 09/13/18 16:28) trimethoprim [From Bactrim] Allergy (Verified 09/13/18 16:28) Review of Systems Constitutional: ABSENT: fever(s), headache(s), night sweats, weakness Eyes: ABSENT: visual disturbances Ears: ABSENT: hearing changes Nose, Mouth, and Throat: ABSENT: sore throat Cardiovascular: PRESENT: chest pain. ABSENT: dyspnea on exertion Respiratory: ABSENT: dyspnea, hemoptysis, sputum, other Gastrointestinal: ABSENT: bloating, heartburn, hematemesis, nausea, vomiting Musculoskeletal: ABSENT: joint swelling Integumentary: ABSENT: rash, wounds Neurological: ABSENT: abnormal gait, abnormal speech, confusion, dizziness, focal weakness, syncope Psychiatric: ABSENT: anxiety, depression, homidical ideation, suicidal ideation Physical Exam Vital Signs: Temp Pulse Resp BP Pulse Ox 98.1 F 20 148/104 H 99 09/13/18 16:31 09/13/18 17:02 09/13/18 17:01 09/13/18 17:02 Intake & Output 09/12/18 09/13/18 09/14/18 06:59 06:59 06:59 Weight 88.451 kg General appearance: PRESENT: no acute distress, obese Head exam: PRESENT: atraumatic Eye exam: PRESENT: PERRLA Mouth exam: PRESENT: moist, tongue midline Teeth exam: PRESENT: poor dentation Neck exam: ABSENT: carotid bruit, JVD, lymphadenopathy, thyromegaly Respiratory exam: PRESENT: decreased breath sounds Cardiovascular exam: PRESENT: RRR. ABSENT: diastolic murmur, rubs, systolic murmur Pulses: PRESENT: normal dorsalis pedis pul GI/Abdominal exam: PRESENT: normal bowel sounds, soft. ABSENT: distended, guarding, mass, organolmegaly, rebound, tenderness Rectal exam: PRESENT: deferred Extremities exam: PRESENT: full ROM. ABSENT: calf tenderness, clubbing, pedal edema Neurological exam: PRESENT: alert, awake, oriented to person, oriented to place, oriented to time, oriented to situation, CN II-XII grossly intact. ABSENT: motor sensory deficit Psychiatric exam: PRESENT: appropriate affect, normal mood. ABSENT: homicidal ideation, suicidal ideation Results Laboratory Results: 09/13/18 16:09 09/13/18 16:09 09/13/18 09/13/18 16:09 16:09 WBC 7.0 RBC 4.63 Hgb 10.9 L Hct 34.3 L MCV 74 L MCH 23.5 L MCHC 31.8 L RDW 16.9 H Plt Count 288 Seg Neutrophils % 47.2 Lymphocytes % 40.2 Monocytes % 9.9 Eosinophils % 2.1 Basophils % 0.6 Absolute Neutrophils 3.3 Absolute Lymphocytes 2.8 Absolute Monocytes 0.7 Absolute Eosinophils 0.1 Absolute Basophils 0.0 Sodium 141.6 Potassium 3.0 L* Chloride 106 Carbon Dioxide 29 Anion Gap 7 BUN 16 Creatinine 1.21 Est GFR ( Amer) 54 L Est GFR (Non-Af Amer) 45 L Glucose 115 H Calcium 9.3 Total Bilirubin 0.2 AST 26 ALT 26 Alkaline Phosphatase 87 Total Protein 7.1 Albumin 3.9 09/13/18 09/13/18 16:09 16:09 Creatine Kinase 339 H CK-MB (CK-2) 2.03 Troponin I < 0.012 Impressions: Chest X-Ray 09/13/18 16:33 IMPRESSION: Cardiomegaly without pulmonary edema. Chest/Abdomen CTA 09/13/18 16:58 IMPRESSION: There is no pulmonary embolus. There is no aortic aneurysm or dissection. Findings as described. Assessment and Plan - Diagnosis (1) Chest pain Qualifiers: Chest pain type: unspecified Qualified Code(s): R07.9 - Chest pain, unspecified Is this a current diagnosis for this admission?: Yes Plan: 09/13/2018-patient came in with chest pain to admit to [facility] to rule out acute coronary syndrome. Started on aspirin, atorvastatin. Lipid panel was requested for tomorrow. Requested for Daniel 2 mg IV every 4 PRN for chest pains. Placed on oxygen 2 L nasal cannula. GI prophylaxis was initiated started on Lovenox 40 mg subcu daily. Patient has history of pulmonary embolism on Coumadin INR is subtherapeutic 1.3 Coumadin was restarted today. Serial troponins and cardiac enzymes are requested. (2) Hypertensive urgency, malignant Is this a current diagnosis for this admission?: Yes Plan: 09/13/2018-patient came in with high blood pressures 170/90 with clonidine im proved to 148/104. Plan is to resume her home medications amlodipine 10 mg daily, losartan/hydrochlorothiazide and clonidine p.o. To check the blood pressures every shift. (3) Obesity (BMI 30-39.9) Is this a current diagnosis for this admission?: No Plan: 09/13/2018-patient's BMI is more than 33 diet exercise weight loss lifestyle modifications are discussed with the patient. Dietary consult will be requested. (4) Pulmonary embolism Is this a current diagnosis for this admission?: No Plan: History of pulmonary embolism on Coumadin 5 mg p.o. nightly INR subtherapeutic 1.3 to resume Coumadin also started on Lovenox prophylactic dose. (5) Diabetes Qualifiers: Diabetes mellitus type: type 2 Is this a current diagnosis for this admission?: No Plan: 09/13/2018-patient has history of type 2 diabetes mellitus on metformin plan to hold metformin and put her on insulin sliding scale before meals and at bedtime to check hemoglobin A1c. (6) Hypokalemia Is this a current diagnosis for this admission?: Yes Plan: 09/13/2018-serum potassium is 3.0 hypokalemia may be secondary to losartan/hydr ochlorothiazide. Plan is to supplement potassium with 40 mg of p.o. potassium. - Time Time Spent with patient: 25-34 minutes Medications reviewed and adjusted accordingly: Yes Anticipated discharge: Home
[2018-09-13 18:43] LABS: APPEARANCE,URINE CLEAR; BILIRUBIN,URINE NEGATIVE (NEGATIVE); COLOR,URINE STRAW; GLUCOSE, URINE NEGATIVE (NEGATIVE); KETONES,URINE NEGATIVE (NEGATIVE); LEUKOCYTE ESTERASE,URINE NEGATIVE (NEGATIVE); NITRITE,URINE NEGATIVE (NEGATIVE); PROTEIN,URINE NEGATIVE (NEGATIVE); URINE SPECIFIC GRAVITY 1.005; UROBILINOGEN,URINE NEGATIVE mg/dL (<2.0)
[2018-09-13 18:58] LABS: URINE AMPHETAMINES SCREEN NEGATIVE; URINE BARBITURATES SCREEN NEGATIVE; URINE BENZODIAZEPINES SCREEN NEGATIVE; URINE COCAINE SCREEN NEGATIVE; URINE MARIJUANA (THC) SCREEN NEGATIVE; URINE METHADONE SCREEN NEGATIVE; URINE PHENCYCLIDINE SCREEN NEGATIVE
[2018-09-13 20:36] LABS: INTERNATIONAL RATION (INR) 1.16; PROTHROMBIN TIME 14.8 SEC (11.4-15.4)
[2018-09-13] MEDS: INSULIN REG, HUMAN 100 UNIT/ML 3 ML VIAL (PYX) SUBCUT SCH (21:59)
[2018-09-13] MEDS ORDERED: WARFARIN SODIUM 5 MG TABLET PO SCH (22:00)
[2018-09-13] MEDS ORDERED: ATORVASTATIN CALCIUM 10 MG TABLET PO SCH (22:00)
[2018-09-13] MEDS: ACETAMINOPHEN 325 MG TABLET PO PRN (22:12)
--- NOTE | 2018-09-14 00:05 | EKG REPORT ---
SEVERITY:- ABNORMAL ECG - SINUS RHYTHM LVH WITH SECONDARY REPOLARIZATION ABNORMALITY : Confirmed by: Cassie Banuelos 14-Sep-2018 00:04:22
[2018-09-14 02:09] LABS: ABSOLUTE BASOPHILS # (AUTO) 0.1 10^3/uL (0.0-0.2); ABSOLUTE EOSINOPHILS # (AUTO) 0.1 10^3/uL (0.0-0.6); ABSOLUTE LYMPHOCYTES (AUTO) 2.4 10^3/uL (0.5-4.7); ABSOLUTE MONOCYTES (AUTO) 0.5 10^3/uL (0.1-1.4); ABSOLUTE NEUT (AUTO) 2.9 10^3/uL (1.7-8.2); EOSINOPHILS % (AUTO) 2.1 % (0-6); HEMATOCRIT 32.7 % (36.0-47.0); HEMOGLOBIN 10.5 g/dL (12.0-15.5); LYMPHOCYTES % (AUTO) 40.2 % (13-45); MEAN CORPUSCULAR HEMOGLOBIN 23.7 pg (27.0-33.4); MEAN CORPUSCULAR HGB CONC 32.1 g/dL (32.0-36.0); MEAN CORPUSCULAR VOLUME 74 fl (80-97); MONOCYTES % (AUTO) 8.6 % (3-13); PLATELET COUNT 243 10^3/uL (150-450); RED BLOOD COUNT 4.44 10^6/uL (3.72-5.28); RED CELL DISTRIBUTION WIDTH 16.5 % (11.5-14.0); SEGMENTED NEUTROPHILS % (AUTO) 48.1 % (42-78); TOTAL CELLS COUNTED % (AUTO) 100 %; WHITE BLOOD COUNT 6.1 10^3/uL (4.0-10.5)
[2018-09-14 02:56] LABS: CREATINE KINASE MB 1.05 ng/mL (<4.55); TROPONIN I < 0.012 ng/mL
[2018-09-14] MEDS: ACETAMINOPHEN 325 MG TABLET PO PRN ×2 (03:46→10:35)
[2018-09-14 07:45] LABS: ALANINE AMINOTRANSFERASE 17 U/L (9-52); ALBUMIN 3.5 g/dL (3.5-5.0); ALKALINE PHOSPHATASE 74 U/L (38-126); ANION GAP 7 (5-19); ASPARTATE AMINO TRANSFERASE 22 U/L (14-36); BILIRUBIN,DIRECT 0.1 mg/dL (0.0-0.4); BILIRUBIN,TOTAL 0.4 mg/dL (0.2-1.3); BLOOD UREA NITROGEN 16 mg/dL (7-20); CALCIUM 9.5 mg/dL (8.4-10.2); CARBON DIOXIDE 28 mmol/L (22-30); CHLORIDE 107 mmol/L (98-107); GLUCOSE 98 mg/dL (75-110); POTASSIUM 3.4 mmol/L (3.6-5.0); TOTAL PROTEIN 6.4 g/dL (6.3-8.2); TRIGLYCERIDES 80 mg/dL (<150)
[2018-09-14 07:56] LABS: DIRECT LDL 63 mg/dL (<100)
[2018-09-14 08:02] LABS: CREATINE KINASE MB 0.82 ng/mL (<4.55)
[2018-09-14 08:03] LABS: TROPONIN I < 0.012 ng/mL
[2018-09-14] MEDS: INSULIN REG, HUMAN 100 UNIT/ML 3 ML VIAL (PYX) SUBCUT SCH ×2 (08:23→11:32)
[2018-09-14] MEDS ORDERED: ASPIRIN 325 MG TABLET PO SCH (10:00)
[2018-09-14] MEDS ORDERED: POTASSIUM CHLORIDE 10 MEQ CAPSULE.ER PO SCH (10:00)
[2018-09-14 12:36] VITALS: BP 140/86
[2018-09-14] MEDS ORDERED: REGADENOSON INJ 0.4 MG/5 ML DISP.SYRIN IV ONE (13:25)
[2018-09-14] MEDS ORDERED: ONDANSETRON HCL INJ/PF 4 MG/2 ML SDV IV PRN (14:30)
[2018-09-14] MEDS ORDERED: HYDRALAZINE HCL INJ/PF 20 MG/1 ML SDV IV PRN (14:30)
[2018-09-14 15:39] LABS: CREATINE KINASE MB 0.76 ng/mL (<4.55)
--- NOTE | 2018-09-14 15:39 | PDOC DISCHARGE SUMMARY ---
General - Admit/Disc Date/PCP Admission Date/Primary Care Provider: 09/13/18 18:21 GEO JACKSON MD Discharge Date: 09/14/18 - Discharge Diagnosis (1) Chest pain Is this a current diagnosis for this admission?: Yes Summary: 09/13/2018-patient came in with chest pain to admit to [facility] to rule out acute coronary syndrome. Started on aspirin, atorvastatin. Lipid panel was requested for tomorrow. Requested for Daniel 2 mg IV every 4 PRN for chest pains. Placed on oxygen 2 L nasal cannula. GI prophylaxis was initiated started on Lovenox 40 mg subcu daily. Patient has history of pulmonary embolism on Coumadin INR is subtherapeutic 1.3 Coumadin was restarted today. Serial troponins and cardiac enzymes are requested. 09/[id number]-wweu-old female with multiple medical problems admitted for chest pain serial troponins are negative started on aspirin, atorvastatin and Lovenox later on found to be she is on Xarelto at home which was initiated and Lovenox was discontinued. She went for the stress test today and which came back as negative as per Dr. Jordan. (2) Hypertensive urgency, malignant Is this a current diagnosis for this admission?: Yes Summary: 09/13/2018-patient came in with high blood pressures 170/90 with clonidine improved to 148/104. Plan is to resume her home medications amlodipine 10 mg daily, losartan/hydrochlorothiazide and clonidine p.o. To check the blood pressures every shift. 09/14/[id number]-ithk-old female admitted for chest pains are also elevated blood pressures stress test was negative which she is chest pain-free today and the patient is advised to continue her home medications. Pressure today is 111/80. Pulse rate of 53. (3) Obesity (BMI 30-39.9) Is this a current diagnosis for this admission?: No (4) Pulmonary embolism Is this a current diagnosis for this admission?: No Summary: History of pulmonary embolism on Coumadin 5 mg p.o. nightly INR subtherapeutic 1.3 to resume Coumadin also started on Lovenox prophylactic dose. 09/14/2018-patient has history of pulmonary embolism on Xarelto at home patient advised to continue Xarelto at home. (5) Diabetes Is this a current diagnosis for this admission?: No Summary: 09/13/2018-patient has history of type 2 diabetes mellitus on metformin plan to hold metformin and put her on insulin sliding scale before meals and at bedtime to check hemoglobin A1c. 09/14/2018-patient has history of type 2 diabetes mellitus on metformin patient advised to resume medication at home. (6) Hypokalemia Is this a current diagnosis for this admission?: Yes Summary: 09/13/2018-serum potassium is 3.0 hypokalemia may be secondary to losartan/hydrochlorothiazide. Plan is to supplement potassium with 40 mg of p.o. potassium. 09/14/2018-patient serum potassium is 3.4 most likely secondary to losartan/hydrochlorothiazide patient is on potassium supplementation and she was advised to continue the medication at home. - Additional Information Resuscitation Status: Do Not Resuscitate Discharge Diet: Diabetic Discharge Activity: Activity As Tolerated Home Medications: Albuterol Sulfate [Proair HFA Inhalation Aerosol 8.5 gm MDI] 1 puff IH ASDIR PRN 09/13/18 Amlodipine/Atorvastatin [Caduet 5 mg-40 mg Tablet] 1 tab PO DAILY 09/13/18 Aspirin [Aspirin 81 mg Chewable Tablet] 81 mg PO DAILY 09/13/18 Atenolol [Tenormin 50 mg Tablet] 50 mg PO DAILY 09/13/18 Benzonatate [Tessalon Perle 100 mg Capsule] 200 mg PO Q8HP PRN 09/13/18 Budesonide/Formoterol Fumarate [Symbicort HFA 160-4.5 mcg Inhaler 6 gm] 2 puff IH Q12 09/13/18 Cholecalciferol (Vitamin D3) [Vitamin D3 2000 unit Tablet] 2,000 unit PO DAILY 09/13/18 Clonidine HCl [Catapres 0.1 mg Tablet] 0.1 mg PO Q12 09/13/18 Cyanocobalamin (Vitamin B-12) [B-12] 1,000 mcg PO DAILY 09/13/18 Losartan/Hydrochlorothiazide [Hyzaar 100-12.5 Tablet] 1 each PO DAILY 09/13/18 Metformin HCl [Glucophage] 500 mg PO BID 09/13/18 Potassium Chloride [Klor-Con 10 Meq Capsule ER] 10 meq PO DAILY 09/13/18 Rivaroxaban [Xarelto] 20 mg PO QPM 09/13/18 History of Present Illness History of Present Illness: DIANNA SOLARES is a 62 year old female history of pulmonary embolism on Coumadin, hypertension, obesity, hypercholesterolemia, asthma, sleep apnea, COPD, hiatal hernia, kidney stones, enlarged heart, 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 Chest pain started yesterday before she went to bed at the time pain was 5/10 in the middle of the chest behind sternum. Not associated with dizziness not associated nausea no shortness of breath no sweating no radiation of the pain. This morning she went to work took some Tums still continued to have the pain decided to come to the emergency room for further evaluation. In the emergency room she was given aspirin and nitroglycerin and pain is eased off to 3/10. Initial troponin was negative in the emergency room CT of the chest was done to rule out PE which was negative for blood clots. Chest x-ray was negative for pneumonia. Medical consult was called for observation for possible stress test tomorrow. Hospital Course Hospital Course: 09/14/[id number]-kxtf-old female with multiple medical problems including hypertension diabetes mellitus, pulmonary embolism admitted with chest pains stress test was negative no complications during the hospital stay. Physical Exam Vital Signs: Temp Pulse Resp BP Pulse Ox 97.4 F 71 18 140/86 H 100 09/14/18 12:10 09/14/18 14:00 09/14/18 12:10 09/14/18 12:35 09/14/18 12:10 Intake & Output 09/13/18 09/14/18 09/15/18 06:59 06:59 06:59 Intake Total 50 Balance 50 Weight 86.7 kg General appearance: PRESENT: no acute distress Head exam: PRESENT: atraumatic Eye exam: PRESENT: PERRLA Mouth exam: PRESENT: moist, tongue midline Teeth exam: PRESENT: poor dentation Neck exam: ABSENT: carotid bruit, JVD, lymphadenopathy, thyromegaly Respiratory exam: PRESENT: decreased breath sounds Cardiovascular exam: PRESENT: RRR. ABSENT: diastolic murmur, rubs, systolic murmur GI/Abdominal exam: PRESENT: normal bowel sounds, soft. ABSENT: distended, guarding, mass, organolmegaly, rebound, tenderness Rectal exam: PRESENT: deferred Extremities exam: PRESENT: full ROM. ABSENT: calf tenderness, clubbing, pedal edema Neurological exam: PRESENT: alert, awake, oriented to person, oriented to place, oriented to time, oriented to situation, CN II-XII grossly intact. ABSENT: motor sensory deficit Psychiatric exam: PRESENT: appropriate affect, normal mood. ABSENT: homicidal ideation, suicidal ideation Results Laboratory Results: 09/14/18 02:00 09/14/18 07:10 09/13/18 09/13/18 09/13/18 16:09 16:09 16:24 WBC 7.0 RBC 4.63 Hgb 10.9 L Hct 34.3 L MCV 74 L MCH 23.5 L MCHC 31.8 L RDW 16.9 H Plt Count 288 Seg Neutrophils % 47.2 Lymphocytes % 40.2 Monocytes % 9.9 Eosinophils % 2.1 Basophils % 0.6 Absolute Neutrophils 3.3 Absolute Lymphocytes 2.8 Absolute Monocytes 0.7 Absolute Eosinophils 0.1 Absolute Basophils 0.0 Sodium 141.6 Potassium 3.0 L* Chloride 106 Carbon Dioxide 29 Anion Gap 7 BUN 16 Creatinine 1.21 Est GFR ( Amer) 54 L Est GFR (Non-Af Amer) 45 L Glucose 115 H Calcium 9.3 Magnesium Total Bilirubin 0.2 AST 26 ALT 26 Alkaline Phosphatase 87 Total Protein 7.1 Albumin 3.9 Triglycerides Cholesterol LDL Cholesterol Direct VLDL Cholesterol HDL Cholesterol Urine Color STRAW Urine Appearance CLEAR Urine pH 6.0 Ur Specific [place] 1.005 Urine Protein NEGATIVE Urine Glucose (UA) NEGATIVE Urine Ketones NEGATIVE Urine Blood NEGATIVE Urine Nitrite NEGATIVE Ur Leukocyte Esterase NEGATIVE Urine WBC (Auto) 1 Urine RBC (Auto) 1 09/14/18 09/14/18 02:00 07:10 WBC 6.1 RBC 4.44 Hgb 10.5 L Hct 32.7 L MCV 74 L MCH 23.7 L MCHC 32.1 RDW 16.5 H Plt Count 243 Seg Neutrophils % 48.1 Lymphocytes % 40.2 Monocytes % 8.6 Eosinophils % 2.1 Basophils % 1.0 Absolute Neutrophils 2.9 Absolute Lymphocytes 2.4 Absolute Monocytes 0.5 Absolute Eosinophils 0.1 Absolute Basophils 0.1 Sodium 142.2 Potassium 3.4 L Chloride 107 Carbon Dioxide 28 Anion Gap 7 BUN 16 Creatinine 1.05 Est GFR ( Amer) > 60 Est GFR (Non-Af Amer) 53 L Glucose 98 Calcium 9.5 Magnesium 1.7 Total Bilirubin 0.4 AST 22 ALT 17 Alkaline Phosphatase 74 Total Protein 6.4 Albumin 3.5 Triglycerides 80 Cholesterol 119.30 LDL Cholesterol Direct 63 VLDL Cholesterol 16.0 HDL Cholesterol 45 Urine Color Urine Appearance Urine pH Ur Specific [place] Urine Protein Urine Glucose (UA) Urine Ketones Urine Blood Urine Nitrite Ur Leukocyte Esterase Urine WBC (Auto) Urine RBC (Auto) 09/13/18 09/13/18 09/13/18 16:09 16:09 20:15 Creatine Kinase 339 H CK-MB (CK-2) 2.03 Troponin I < 0.012 < 0.012 09/14/18 09/14/18 02:00 07:10 Creatine Kinase CK-MB (CK-2) 1.05 0.82 Troponin I < 0.012 < 0.012 Impressions: Chest X-Ray 09/13/18 16:33 IMPRESSION: Cardiomegaly without pulmonary edema. Chest/Abdomen CTA 09/13/18 16:58 IMPRESSION: There is no pulmonary embolus. There is no aortic aneurysm or dissection. Findings as described. Qualifiers - * PATIENT BEING DISCHARGED WITH ANY OF THE FOLLOWING DIAGNOSIS: No VTE patient discharged on overlapping Therapy?: No Acute Heart Failure - Is this a Heart Failure Patient?: No Plan Time Spent: Greater than 30 Minutes
[2018-09-14 15:40] LABS: TROPONIN I < 0.012 ng/mL
[2018-09-14] MEDS ORDERED: RIVAROXABAN 10 MG TABLET PO SCH (18:00)
--- NOTE | 2018-09-14 23:03 | DRAGON STRESS TEST REPORT ---
Intravenous Lexiscan Cardiolite stress test using single photon emmision computerized tomography. Date of procedure: 09/14/2018. Ordering Provider: Dr. Egan. Patient's status: NCAT patient. Indication: Chest pain. Coronary risk factors: Age, diabetes mellitus, dyslipidemia, and family history of coronary artery disease. Resting EKG: Sinus bradycardia. Diffuse nonspecific T wave flattening Stress EKG: No changes of ischemia. The patient had no chest pain or discomfort, and there is no arrhythmia seen. Reason for termination: Protocol. Conclusions: Normal EKG and hemodynamic response to IV Lexiscan. Nuclear data: At rest the patient was given 13.9-month millicuries of technetium 99m sestamibi injected intravenously. As per protocol rest non gated SPECT images were obtained. Subsequently the patient was given intravenous Lexiscan at a dose of 0.4 mg in 5 mL intravenously, followed by flush with normal saline. Subsequently the stress dose of 39.8 millicuries of technetium 99m sestamibi was injected intravenously. As per protocol stress gated images were obtained. Nuclear interpretation: Review of images showed that all segments of the myocardium had normal perfusion at rest, and normal perfusion post stress with IV Lexiscan. All segments of the myocardium had normal motion, contraction, and thickening by gated study. T. I D. ratio was normal at 0.98. There is no transient ischemic dilatation of the left ventricle. Computer read rest, and stress left ventricular ejection fraction were 58 %, and 62 %, respectively. Conclusion: 1. There is no scintigraphic evidence of Lexiscan induced myocardial ischemia. 2. There is no scintigraphic evidence of myocardial infarction/scar. Recommendations: Aggressive risk factor modification, and treating the underlying co- morbidities. MTDD
== END 2018-09-14 16:16 | disposition home or self-care (01) ==
LOC: ER 15:54 → INTOOBSV 18:21 → EH 18:21 → 3S 21:55
PROVIDERS: ADMIT Internal Medicine; ATTEND Internal Medicine
DX: R07.89 Other chest pain (principal); I16.0 Hypertensive urgency; E66.9 Obesity, unspecified; E11.9 Type 2 diabetes mellitus without complications; E87.6 Hypokalemia; E78.00 Pure hypercholesterolemia, unspecified; J44.9 Chronic obstructive pulmonary disease, unspecified; F41.9 Anxiety disorder, unspecified; K21.9 Gastro-esophageal reflux disease without esophagitis; Z68.39 Body mass index [BMI] 39.0-39.9, adult; Z79.01 Long term (current) use of anticoagulants; Z86.711 Personal history of pulmonary embolism; Z79.84 Long term (current) use of oral hypoglycemic drugs; Z79.899 Other long term (current) drug therapy; Z66 Do not resuscitate; Z79.82 Long term (current) use of aspirin; Z90.49 Acquired absence of other specified parts of digestive tract; Z82.49 Family history of ischemic heart disease and other diseases of the circulatory system; Z86.73 Personal history of transient ischemic attack (TIA), and cerebral infarction without residual deficits
CPT/HCPCS: 93005; 99285; 96365; 36415 ×2; 82553 ×2; 82962 ×2; 82550; 83735; 85025 ×2; 85610; 80053 ×2; 81001; 84484 ×2; 80307; 83036; 80061; 93017; 71045; 78452; 71275; 93010; A9500; J2785; J0360; J1650; J3490 ×2; J3480; Q9969; G0378

== ENCOUNTER 2018-09-15 00:57 | Emergency (ER) | payer BC, MEDICARE ==
--- NOTE | 2018-09-15 01:27 | ER Document Report ---
ED General - General Chief Complaint: Productive Cough Stated Complaint: SPITTING UP BLOOD Time Seen by Provider: 09/15/18 01:13 Primary Care Provider: GEO JACKSON MD [Primary Care Provider] - Follow up as needed Notes: Patient is a 62-year-old female that comes to the emergency department for chief complaint of coughing up blood. She states that she got up from sleeping, went to the bathroom, "felt something come out of my mouth that felt like a blueberry", she states she looked down her palm and states it looked like a blood clot. She states then flecks of red blood "came out". She denies coughing or vomiting out the blood. She states earlier in the day she felt some upper left abdominal discomfort and nausea, but denies it now. She states she just came in to be checked afterwards. She was discharged yesterday after being admitted for chest pain, she had a negative stress test, CTA of the chest, and g eneral work-up at that time. She is on a blood thinner, she states she was previously on Coumadin and now is on Xarelto. Remaining medical history includes hypertension, asthma/COPD, anxiety, pulmonary embolism. TRAVEL OUTSIDE OF THE [place] IN LAST 30 DAYS: No - Related Data Allergies/Adverse Reactions: cephalexin monohydrate [From Keflex] Allergy (Verified 09/13/18 16:28) sulfamethoxazole [From Bactrim] Allergy (Verified 09/13/18 16:28) trimethoprim [From Bactrim] Allergy (Verified 09/13/18 16:28) Past Medical History - General Information source: Patient - Social History Smoking Status: Former Smoker Frequency of alcohol use: None Drug Abuse: None Lives with: Family Family History: Arthritis, CAD, CVA, Hyperlipidemia, Hypertension, Malignancy, Thyroid Disfunction. denies: DM - Past Medical History Cardiac Medical History: Reports: Hx Hypercholesterolemia, Hx Hypertension, Hx Pulmonary Embolism Denies: Hx Atrial Fibrillation, Hx Congestive Heart Failure, Hx Coronary Artery Disease, Hx Heart Attack, Hx Peripheral Vascular Disease, Hx Heart Murmur Pulmonary Medical History: Reports: Hx Asthma, Hx Bronchitis, Hx COPD, Hx Pneumonia, Hx Sleep Apnea - bipap at home Denies: Hx Respiratory Failure, Hx Tuberculosis Neurological Medical History: Reports: Hx Cerebrovascular Accident. Denies: Hx Seizures Endocrine Medical History: Reports: Hx Diabetes Mellitus Type 2 - no insulin at this time. Patient on Metformin more then 10 years, Hx Hypothyroidism. Denies: Hx Graves' Disease, Hx Hyperthyroidism Renal/ Medical History: Reports: Hx Kidney Stones. Denies: Hx End Stage Renal Disease, Hx Ovarian Cysts, Hx Peritoneal Dialysis, Hx Pelvic Inflammatory Diseas e Malignancy Medical History: Denies: Hx Breast Cancer, Hx Cervical Cancer, Hx Leukemia, Hx Lung Cancer, Hx Ovarian Cancer GI Medical History: Reports: Hx Gastroesophageal Reflux Disease, Hx Hiatal Hernia. Denies: Hx Crohn's Disease, Hx Irritable Bowel, Hx Liver Failure, Hx Pancreatitis, Hx Ulcer Musculoskeletal Medical History: Reports Hx Arthritis, Denies Hx Fibromyalgia, Denies Hx Multiple Sclerosis, Denies Hx Muscular Dystrophy, Reports Hx Musculoskeletal Deformity, Reports Hx Musculoskeletal Trauma, Denies Hx Systemic Lupus Erythematosus Psychiatric Medical History: Reports: Hx Anxiety Denies: Hx Bipolar Disorder, Hx Dementia, Hx Depression, Hx Post Traumatic Stress Disorder, Hx Schizophrenia Traumatic Medical History: Reports: Hx Fractures - right hand Infectious Medical History: Denies: Hx HIV Past Surgical History: Reports: Hx Cholecystectomy, Hx Hysterectomy, Hx Thyroid Surgery. Denies: Hx Appendectomy, Hx Bowel Surgery, Hx Section, Hx Colostomy, Hx Coronary Artery Bypass Graft, Hx Gastric Bypass Surgery, Hx Herniorrhaphy, Hx Mastectomy, Hx Pacemaker, Hx Tonsillectomy, Hx Tubal Ligation - Immunizations Immunizations up to date: No Hx Diphtheria, Pertussis, Tetanus Vaccination: Yes Hx Pneumococcal Vaccination: 11/21/18 Review of Systems - Review of Systems Constitutional: No symptoms reported EENT: See HPI Cardiovascular: No symptoms reported Respiratory: See HPI Gastrointestinal: See HPI Genitourinary: No symptoms reported Female Genitourinary: No symptoms reported Musculoskeletal: No symptoms reported Skin: No symptoms reported Hematologic/Lymphatic: No symptoms reported Neurological/Psychological: No symptoms reported Physical Exam - Vital signs Vitals: Temp Pulse BP Pulse Ox 98.7 F 79 172/117 H 95 09/15/18 01:07 09/15/18 01:07 09/15/18 01:07 09/15/18 01:07 - Notes Notes: GENERAL: Alert, interacts well. No acute distress. HEAD: Normocephalic, atraumatic. EYES: Pupils equal, round, and reactive to light. Extraocular movements intact. ENT: Oral mucosa moist, tongue midline. Oropharynx unremarkable. Airway patent. Nares patent, no nasal septal hematoma, TM's intact. NECK: Full range of motion. Supple. Trachea midline. LUNGS: Clear to auscultation bilaterally, no wheezes, rales, or rhonchi. No respiratory distress. HEART: Regular rate and rhythm. No murmur ABDOMEN: Soft, non-tender. Non-distended. Bowel sounds present in all 4 q uadrants. GENITOURINARY: Deferred EXTREMITIES: Moves all 4 extremities spontaneously. No edema, normal radial and dorsalis pedis pulses bilaterally. No cyanosis. BACK: no cervical, thoracic, lumbar midline tenderness. No saddle anesthesia, normal distal neurovascular exam. Moves all extremities in full range of motion. NEUROLOGICAL: Alert and oriented x3. Normal speech. Cranial nerves II through X II grossly intact. PSYCH: Normal affect, normal mood. SKIN: Warm, dry, normal turgor. No rashes or lesions noted. Course - Re-evaluation Re-evalutation: Completely unremarkable physical exam. Patient is well-appearing on exam. CBC does not show down trending hemoglobin, stool is negative for blood, patient has a soft benign abdomen. Patient has not on description of the bleeding. It almost sounds as if she when she was lying down she had some blood in the posterior pharynx which came out when she stood up. I did discuss this with patient, she states she is not sure if this is the case. She states she might have taken an extra dose of her blood thinner but she is not certain of this either. Regardless patient has no current bleeding, she has had no vomiting, she is not coughing or coughing up blood, she denies shortness of breath, chest pain, abdominal pain, dizziness. As result I do not suspect any acute concern ing bleeding at this time. I discussed this with patient. Patient states satisfaction, states she will follow-up closely with her primary care and return if she worsens. states agreement as well. Stable at time of discharge. - Vital Signs Vital signs: Temp Pulse Resp BP Pulse Ox 97.9 F 78 18 151/90 H 97 09/15/18 04:02 09/15/18 04:02 09/15/18 04:02 09/15/18 04:02 09/15/18 04:02 - Laboratory Result Diagrams: 09/15/18 02:25 09/15/18 02:25 Laboratory results interpreted by me: 09/15/18 09/15/18 09/15/18 02:25 02:25 02:25 Hgb 11.2 L Hct 35.7 L MCV 74 L MCH 23.2 L MCHC 31.5 L RDW 17.0 H PT 20.1 H APTT 42.9 H Est GFR (Non-Af Amer) 59 L Glucose 113 H - EKG Interpretation by Me Additional EKG results interpreted by me: EKG shows A. fib at a rate of 60, Discharge - Discharge Clinical Impression: Vomiting blood Qualifiers: Nausea presence: unspecified Qualified Code(s): K92.0 - Hematemesis Condition: Stable Disposition: HOME, SELF-CARE Additional Instructions: Your evaluation and work-up tonight are reassuring. Your hemoglobin (red blood cell counts) is not dropping and your stool does not show blood in it. The exact source of the bleeding is uncertain, however based on your history and symptoms I suspect this was from a sinus source. Consider humidified air. Follow-up with primary care. Return if you worsen including vomiting blood, black stools, passing out, or any other concerning or worsening symptoms. Referrals: GEO JACKSON MD [Primary Care Provider] - Follow up as needed
[2018-09-15 02:36] LABS: ABSOLUTE EOSINOPHILS # (AUTO) 0.1 10^3/uL (0.0-0.6); ABSOLUTE LYMPHOCYTES (AUTO) 1.8 10^3/uL (0.5-4.7); ABSOLUTE MONOCYTES (AUTO) 0.5 10^3/uL (0.1-1.4); ABSOLUTE NEUT (AUTO) 2.7 10^3/uL (1.7-8.2); BASOPHILS % (AUTO) 0.5 % (0-2); EOSINOPHILS % (AUTO) 2.4 % (0-6); HEMATOCRIT 35.7 % (36.0-47.0); HEMOGLOBIN 11.2 g/dL (12.0-15.5); LYMPHOCYTES % (AUTO) 35.6 % (13-45); MEAN CORPUSCULAR HEMOGLOBIN 23.2 pg (27.0-33.4); MEAN CORPUSCULAR HGB CONC 31.5 g/dL (32.0-36.0); MEAN CORPUSCULAR VOLUME 74 fl (80-97); MONOCYTES % (AUTO) 9.8 % (3-13); PLATELET COUNT 271 10^3/uL (150-450); RED BLOOD COUNT 4.83 10^6/uL (3.72-5.28); SEGMENTED NEUTROPHILS % (AUTO) 51.7 % (42-78); TOTAL CELLS COUNTED % (AUTO) 100 %; WHITE BLOOD COUNT 5.2 10^3/uL (4.0-10.5)
--- NOTE | 2018-09-15 02:40 | RADIOLOGY REPORT (SQ) ---
EXAM DESCRIPTION: XR CHEST 1 VIEW COMPLETED DATE/TME: 09/15/2018 01:58 CLINICAL HISTORY: 62 years, Female, vomiting blood COMPARISON: 09/13/2018 chest NUMBER OF VIEWS: 1 TECHNIQUE: Portable chest LIMITATIONS: None. FINDINGS: Stable cardiomegaly. Lungs are clear. No pneumothorax IMPRESSION: Stable cardiomegaly. Lungs are clear copyright 2011 [employer]- All Rights Reserved
[2018-09-15 02:45] LABS: INTERNATIONAL RATION (INR) 1.69; PROTHROMBIN TIME 20.1 SEC (11.4-15.4)
[2018-09-15 02:46] LABS: PARTIAL THROMBOPLASTIN TIME 42.9 SEC (23.5-35.8)
[2018-09-15 02:59] LABS: ALANINE AMINOTRANSFERASE 14 U/L (9-52); ALBUMIN 4.1 g/dL (3.5-5.0); ALKALINE PHOSPHATASE 80 U/L (38-126); ANION GAP 10 (5-19); ASPARTATE AMINO TRANSFERASE 25 U/L (14-36); BILIRUBIN,DIRECT 0.2 mg/dL (0.0-0.4); BILIRUBIN,TOTAL 0.4 mg/dL (0.2-1.3); BLOOD UREA NITROGEN 13 mg/dL (7-20); CALCIUM 10.1 mg/dL (8.4-10.2); CARBON DIOXIDE 28 mmol/L (22-30); CHLORIDE 106 mmol/L (98-107); GLUCOSE 113 mg/dL (75-110); POTASSIUM 3.6 mmol/L (3.6-5.0); TOTAL PROTEIN 7.2 g/dL (6.3-8.2)
[2018-09-15 04:04] VITALS: BP 151/90
--- NOTE | 2018-09-15 10:12 | EKG REPORT ---
SEVERITY:- ABNORMAL ECG - SINUS RHYTHM PROBABLE LEFT ATRIAL ABNORMALITY LEFT VENTRICULAR HYPERTROPHY : Confirmed by: Cassie Banuelos 15-Sep-2018 10:11:47
== END 2018-09-15 04:00 | disposition home or self-care (01) ==
LOC: ER 00:57
DX: K92.0 Hematemesis (principal); R04.2 Hemoptysis; R10.12 Left upper quadrant pain; I10 Essential (primary) hypertension; J44.9 Chronic obstructive pulmonary disease, unspecified; E11.9 Type 2 diabetes mellitus without complications; Z79.84 Long term (current) use of oral hypoglycemic drugs
CPT/HCPCS: 36415; 71045; 80053; 83690; 85025; 85610; 85730; 86850; 86900; 86901; 93005; 93010; 99284

== ENCOUNTER → 2018-11-24 | Outpatient (CLI) | payer BC, MEDICARE ==
[2018-11-24 15:35] LABS: ABSOLUTE EOSINOPHILS # (AUTO) 0.1 10^3/uL (0.0-0.6); ABSOLUTE MONOCYTES (AUTO) 0.6 10^3/uL (0.1-1.4); ABSOLUTE NEUT (AUTO) 2.6 10^3/uL (1.7-8.2); BASOPHILS % (AUTO) 0.8 % (0-2); EOSINOPHILS % (AUTO) 2.3 % (0-6); HEMATOCRIT 34.9 % (36.0-47.0); HEMOGLOBIN 11.2 g/dL (12.0-15.5); MEAN CORPUSCULAR HEMOGLOBIN 23.6 pg (27.0-33.4); MEAN CORPUSCULAR VOLUME 74 fl (80-97); MONOCYTES % (AUTO) 10.6 % (3-13); PLATELET COUNT 244 10^3/uL (150-450); RED BLOOD COUNT 4.73 10^6/uL (3.72-5.28); RED CELL DISTRIBUTION WIDTH 16.9 % (11.5-14.0); SEGMENTED NEUTROPHILS % (AUTO) 49.3 % (42-78); TOTAL CELLS COUNTED % (AUTO) 100 %; WHITE BLOOD COUNT 5.4 10^3/uL (4.0-10.5)
[2018-11-24 15:53] LABS: ANION GAP 10 (5-19); BLOOD UREA NITROGEN 10 mg/dL (7-20); CALCIUM 9.5 mg/dL (8.4-10.2); CARBON DIOXIDE 28 mmol/L (22-30); CHLORIDE 99 mmol/L (98-107); GLUCOSE 93 mg/dL (75-110)
== END ==
LOC: LAB 14:50
PROVIDERS: ATTEND Physician Assistant
DX: Z00.00 Encounter for general adult medical examination without abnormal findings (principal)
CPT/HCPCS: 36415; 80048; 85025

== ENCOUNTER → 2018-11-24 | Outpatient (CLI) | payer BC, MEDICARE ==
--- NOTE | 2018-11-24 14:51 | RADIOLOGY REPORT (SQ) ---
EXAM DESCRIPTION: CT ABD/PELVIS WITH IV ORAL COMPLETED DATE/TIME: 11/24/2018 2:37 pm REASON FOR STUDY: DIVERTICULITIS W/O HEM K57.32 DVTRCLI OF LG INT W/O PERFORATION OR ABSCESS W/O BL EE COMPARISON: 10/04/2017 TECHNIQUE: CT scan of the abdomen and pelvis performed using helical scanning technique with dynamic intravenous contrast injection. Additional oral contrast. Images reviewed with lung, soft tissue, a nd bone windows. Reconstructed coronal and sagittal MPR images reviewed. Delayed images for evaluatio n of the urinary system also acquired. All images stored on PACS. All CT scanners at this facility use dose modulation, iterative reconstruction, and/or weight based d osing when appropriate to reduce radiation dose to as low as reasonably achievable (ALARA). [facility]: Dose Right [facility]: CareDose [facility]: Dose Right [facility]: Teradose 4D [facility]: [employer] CONTRAST TYPE AND DOSE: contrast/concentration: Isovue 350.00 mg/ml; Total Contrast Delivered: 96.0 ml; Total Saline Delivered: 71.0 ml RENAL FUNCTION: GFR > 60. RADIATION DOSE: CT Rad equipment meets quality standard of care and radiation dose reduction techniq ues were employed. CTDIvol: 8.8 - 9.8 mGy. DLP: 861 mGy-cm.. LIMITATIONS: None. FINDINGS: LOWER CHEST: No significant findings. No nodules or infiltrates. LIVER: Normal size. No masses. No dilated ducts. SPLEEN: Normal size. No focal lesions. PANCREAS: No masses. No significant calcifications. No adjacent inflammation or peripancreatic fluid collections. Pancreatic duct not dilated. GALLBLADDER: Surgically absent. ADRENAL GLANDS: No significant masses or asymmetry. RIGHT KIDNEY AND URETER: Multiple cortical defects and an nonobstructive calculus of the inferior domonique e of the right kidney. No significant calcifications. No hydronephrosis or hydroureter. LEFT KIDNEY AND URETER: No solid masses. No significant calcifications. No hydronephrosis or hydr oureter. AORTA AND VESSELS: No aneurysm. No dissection. Renal arteries, SMA, celiac without stenosis. RETROPERITONEUM: No retroperitoneal adenopathy, hemorrhage or masses. BOWEL AND PERITONEAL CAVITY: There is sigmoid diverticulosis with fat stranding about the proximal si gmoid (series 2, image 68). No free fluid or peritoneal masses. APPENDIX: Normal. PELVIS: No mass. No free fluid. Normal bladder. ABDOMINAL WALL: No masses. No hernias. BONES: No significant or acute findings. OTHER: No other significant finding. IMPRESSION: There is sigmoid diverticulosis with fat stranding about the proximal sigmoid (series 2, image 68). Findings are consistent with acute diverticulitis. No evidence of perforation or absces s. TECHNICAL DOCUMENTATION: JOB ID: [id number] Quality ID # [id number]: Final reports with documentation of one or more dose reduction techniques (e.g., Au tomated exposure control, adjustment of the mA and/or kV according to patient size, use of iterative reconstruction technique) 2010 [employer]- All Rights Reserved Reading location - IP/workstation name: [email or web address]
== END ==
LOC: RAD 12:07
PROVIDERS: ATTEND Internal Medicine Gastroenterology
DX: K57.32 Diverticulitis of large intestine without perforation or abscess without bleeding (principal); R10.32 Left lower quadrant pain
CPT/HCPCS: 74177; 82565

== ENCOUNTER → 2018-12-22 | Outpatient (CLI) | payer BC, MEDICARE ==
[2018-12-22 09:29] LABS: HEMOGLOBIN 11.2 g/dL (12.0-15.5); MEAN CORPUSCULAR HEMOGLOBIN 23.7 pg (27.0-33.4); MEAN CORPUSCULAR HGB CONC 31.9 g/dL (32.0-36.0); MEAN CORPUSCULAR VOLUME 74 fl (80-97); PLATELET COUNT 230 10^3/uL (150-450); RED BLOOD COUNT 4.71 10^6/uL (3.72-5.28); RED CELL DISTRIBUTION WIDTH 17.3 % (11.5-14.0); WHITE BLOOD COUNT 4.5 10^3/uL (4.0-10.5)
[2018-12-22 09:57] LABS: ALBUMIN 4.1 g/dL (3.5-5.0); ALKALINE PHOSPHATASE 81 U/L (38-126); ASPARTATE AMINO TRANSFERASE 29 U/L (14-36); BILIRUBIN,DIRECT 0.1 mg/dL (0.0-0.4); BILIRUBIN,TOTAL 0.5 mg/dL (0.2-1.3); TOTAL PROTEIN 7.5 g/dL (6.3-8.2)
== END ==
LOC: OD 09:06
PROVIDERS: ATTEND Internal Medicine Gastroenterology
DX: R10.13 Epigastric pain (principal)
CPT/HCPCS: 36415; 80076; 83690; 85027

== ENCOUNTER → 2019-02-22 | Outpatient (CLI) | payer BC, MEDICARE ==
--- NOTE | 2019-02-22 14:56 | WOMENS IMAGING REPORT ---
EXAM DESCRIPTION: BONE DENSITY HIP/SPINE COMPLETED DATE/TIME: 02/22/2019 1:30 pm REASON FOR STUDY: Z78.0 BONE DENSITY Z12.31 ENCNTR SCREEN MAMMOGRAM FOR MALIGNANT NEOPLASM OF ANTONIO COMPARISON: None. TECHNIQUE: Dual-Energy X-ray Absorptiometry (DEXA) of the AP Spine and Hip. LIMITATIONS: None. FINDINGS: LUMBAR SPINE: The bone mineral density (BMD) measured from L1-L4 in the AP projection correlates with a T-score of 2.2, which is normal as defined by the World Health Organization. BMD Change vs Baseline: N/A HIP: The bone mineral density (BMD) measured in the left hip correlates with a T-score of 0.8, which is no rmal as defined by the World Health Organization. BMD Change vs Baseline: N/A 10 year Fracture Risk Assessment: Major Osteoporotic Fracture: Not available. Hip Fracture: Not available. IMPRESSION: 1. LUMBAR SPINE WHO CLASSIFICATION: NORMAL. 2. HIP WHO CLASSIFICATION: NORMAL. OVERALL ASSESSMENT: WHO CLASSIFICATION: NORMAL. COMMENT: The World Health Organization defines low BMD as follows: T-score: Normal: Greater than -1.0 Osteopenia: Between -1.0 and -2.5 Osteoporosis: Less than -2.5 without fractures Established osteoporosis: Less than -2.5 with fractures In general, you may wish to consider: Diagnosis Treatment Follow-up DEXA Normal BMD Prevention 2-3 years Osteopenia Prevention/Therapy 1-2 years Osteoporosis Therapy Yearly TECHNICAL DOCUMENTATION: JOB ID: [id number] [employer]- All Rights Reserved Reading location - IP/workstation name: [email or web address]
--- NOTE | 2019-02-22 15:02 | WOMENS IMAGING REPORT ---
EXAM DESCRIPTION: BILAT SCREENING MAMMO W/CAD COMPLETED DATE/TIME: 02/22/2019 1:30 pm REASON FOR STUDY: Z12.31 BILATERAL SCREENING MAMMOGRAM Z12.31 ENCNTR SCREEN MAMMOGRAM FOR MALIGNANT NEOPLASM OF ANTONIO COMPARISON: 2016 EXAM PARAMETERS: Standard craniocaudal and mediolateral oblique views of each breast recorded using digital acquisition. Read with the assistance of CAD. .[facility] - R2 Hris Coordinator Version 9.2 LIMITATIONS: None. FINDINGS: No suspicious masses, suspicious calcifications or architectural distortion. No areas of c oncern. IMPRESSION: Negative MAMMOGRAM. BIRADS 1 BREAST DENSITY: b. There are scattered areas of fibroglandular density. BIRAD: ASSESSMENT: 1 NEGATIVE RECOMMENDATION: ROUTINE SCREENING COMMENT: The patient has been notified of the results by letter per MQSA requirements. Additional no tification policies are in place for contacting patient with suspicious or incomplete findings. Quality ID #[id number]: The [employer] recommends an annual screening mammogram for women aged 40 years or over. This facility utilizes a reminder system to ensure that all patients receive reminder letters, and/or direct phone calls for appointments. This includes reminders for routine scr eening mammograms, diagnostic mammograms, or other Breast Imaging Interventions when appropriate. Th is patient will be placed in the appropriate reminder system. TECHNICAL DOCUMENTATION: FINDING NUMBER: (1) ASSESSMENT: (1) JOB ID: [id number] [employer]- All Rights Reserved Reading location - IP/workstation name: [email or web address]
== END ==
LOC: WI 12:55
PROVIDERS: ATTEND Physician Assistant
DX: Z12.31 Encounter for screening mammogram for malignant neoplasm of breast (principal); Z78.0 Asymptomatic menopausal state
CPT/HCPCS: 77067; 77080

== ENCOUNTER 2019-04-10 10:18 | Emergency (ER) | payer BC, MEDICARE ==
--- NOTE | 2019-04-10 11:32 | ER Document Report ---
ED Medical Screen (RME) - General Chief Complaint: Chest Pain Stated Complaint: CHEST PAIN/SHORTNESS OF BREATH Time Seen by Provider: 04/10/19 11:23 Primary Care Provider: MOUSTAPHA JUSTIN MD [Primary Care Provider] - Follow up as needed Mode of Arrival: Ambulatory Information source: Patient Notes: This 63-year-old female with history of PE stroke high blood pressure high cholesterol presents to the emergency department with complaints of right-sided sharp chest pain since Tuesday. She reports she thought it was indigestion and took Tums without relief of symptoms. She reports at times she feels a little short of breath. She reports she did have a little blurred vision none now. She occasionally has light feels lightheaded. Denies radiating pain. Denies na usea vomiting. Denies history of MT. I have greeted and performed a rapid initial assessment of this patient. A comprehensive ED assessment and evaluation of the patient, analysis of test results and completion of the medical decision making process will be conducted by additional ED providers. TRAVEL OUTSIDE OF THE [place] IN LAST 30 DAYS: No - Related Data Allergies/Adverse Reactions: oxycodone Allergy (Intermediate, Verified 04/10/19 11:23) Hives cephalexin monohydrate [From Keflex] Allergy (Verified 09/13/18 16:28) sulfamethoxazole [From Bactrim] Allergy (Verified 09/13/18 16:28) trimethoprim [From Bactrim] Allergy (Verified 09/13/18 16:28) Home Medications: atenolol, xarelto, atorvastatin, clonidine, metformin, vit d, vit b12, symbicort, ventolin, kChlor, B-asa Past Medical History - Social History Chew tobacco use (# tins/day): No Frequency of alcohol use: None Drug Abuse: None - Past Medical History Cardiac Medical History: Reports: Hx Hypercholesterolemia, Hx Hypertension, Hx Pulmonary Embolism Denies: Hx Atrial Fibrillation, Hx Congestive Heart Failure, Hx Coronary Artery Disease, Hx Heart Attack, Hx Peripheral Vascular Disease, Hx Heart Murmur Pulmonary Medical History: Reports: Hx Asthma, Hx Bronchitis, Hx COPD, Hx Pneumonia, Hx Sleep Apnea - bipap at home Denies: Hx Respiratory Failure, Hx Tuberculosis Neurological Medical History: Reports: Hx Cerebrovascular Accident. Denies: Hx Seizures, Hx Parkinson's Disease Endocrine Medical History: Reports: Hx Diabetes Mellitus Type 2 - no insulin at this time. Patient on Metformin more then 10 years, Hx Hypothyroidism. Denies: Hx Graves' Disease, Hx Hyperthyroidism Renal/ Medical History: Reports: Hx Kidney Stones. Denies: Hx End Stage Renal Disease, Hx Ovarian Cysts, Hx Peritoneal Dialysis, Hx Pelvic Inflammatory Disease Malignancy Medical History: Denies: Hx Breast Cancer, Hx Cervical Cancer, Hx Leukemia, Hx Lung Cancer, Hx Ovarian Cancer GI Medical History: Reports: Hx Gastroesophageal Reflux Disease, Hx Hiatal Hernia. Denies: Hx Crohn's Disease, Hx Irritable Bowel, Hx Liver Failure, Hx Pancreatitis, Hx Ulcer Musculoskeltal Medical History: Reports Hx Arthritis, Denies Hx Fibromyalgia, Denies Hx Multiple Sclerosis, Denies Hx Muscular Dystrophy, Reports Hx Musculoskeletal Deformity, Reports Hx Musculoskeletal Trauma, Denies Hx Systemic Lupus Erythematosus Psychiatric Medical History: Reports: Hx Anxiety Denies: Hx Bipolar Disorder, Hx Dementia, Hx Depression, Hx Post Traumatic Stress Disorder, Hx Schizophrenia Traumatic Medical History: Reports: Hx Fractures - right hand Infectious Medical History: Denies: Hx HIV Past Surgical History: Reports: Hx Cholecystectomy, Hx Hysterectomy, Hx Thyroid Surgery. Denies: Hx Appendectomy, Hx Bowel Surgery, Hx Section, Hx Colostomy, Hx Coronary Artery Bypass Graft, Hx Gastric Bypass Surgery, Hx Herniorrhaphy, Hx Mastectomy, Hx Pacemaker, Hx Tonsillectomy, Hx Tubal Ligation - Immunizations Immunizations up to date: No Hx Diphtheria, Pertussis, Tetanus Vaccination: Yes Physical Exam - Vital signs Vitals: Temp Pulse Resp BP Pulse Ox 98.5 F 79 22 H 164/107 H 98 04/10/19 10:44 04/10/19 10:44 04/10/19 10:44 04/10/19 10:44 04/10/19 10:44 Course - Vital Signs Vital signs: Temp Pulse Resp BP Pulse Ox 98.5 F 79 22 H 164/107 H 98 04/10/19 10:44 04/10/19 10:44 04/10/19 10:44 04/10/19 10:44 04/10/19 10:44 Doctor's Discharge - Discharge Referrals: MOUSTAPHA JUSTIN MD [Primary Care Provider] - Follow up as needed
[2019-04-10 11:57] LABS: ABSOLUTE EOSINOPHILS # (AUTO) 0.1 10^3/uL (0.0-0.6); ABSOLUTE LYMPHOCYTES (AUTO) 2.1 10^3/uL (0.5-4.7); ABSOLUTE MONOCYTES (AUTO) 0.5 10^3/uL (0.1-1.4); ABSOLUTE NEUT (AUTO) 2.4 10^3/uL (1.7-8.2); BASOPHILS % (AUTO) 0.7 % (0-2); EOSINOPHILS % (AUTO) 2.1 % (0-6); HEMATOCRIT 35.2 % (36.0-47.0); HEMOGLOBIN 11.1 g/dL (12.0-15.5); LYMPHOCYTES % (AUTO) 40.6 % (13-45); MEAN CORPUSCULAR HEMOGLOBIN 23.5 pg (27.0-33.4); MEAN CORPUSCULAR HGB CONC 31.7 g/dL (32.0-36.0); MEAN CORPUSCULAR VOLUME 74 fl (80-97); MONOCYTES % (AUTO) 8.9 % (3-13); PLATELET COUNT 281 10^3/uL (150-450); RED BLOOD COUNT 4.74 10^6/uL (3.72-5.28); SEGMENTED NEUTROPHILS % (AUTO) 47.7 % (42-78); TOTAL CELLS COUNTED % (AUTO) 100 %; WHITE BLOOD COUNT 5.1 10^3/uL (4.0-10.5)
[2019-04-10 12:01] LABS: APPEARANCE,URINE CLEAR; BILIRUBIN,URINE NEGATIVE (NEGATIVE); COLOR,URINE STRAW; GLUCOSE, URINE NEGATIVE (NEGATIVE); KETONES,URINE NEGATIVE (NEGATIVE); LEUKOCYTE ESTERASE,URINE TRACE (NEGATIVE); NITRITE,URINE NEGATIVE (NEGATIVE); PROTEIN,URINE NEGATIVE (NEGATIVE); URINE SPECIFIC GRAVITY 1.004; UROBILINOGEN,URINE NEGATIVE mg/dL (<2.0)
[2019-04-10 12:18] LABS: ALBUMIN 4.1 g/dL (3.5-5.0); ALKALINE PHOSPHATASE 84 U/L (38-126); ANION GAP 5 (5-19); ASPARTATE AMINO TRANSFERASE 24 U/L (14-36); BILIRUBIN,TOTAL 0.3 mg/dL (0.2-1.3); BLOOD UREA NITROGEN 12 mg/dL (7-20); CALCIUM 9.8 mg/dL (8.4-10.2); CARBON DIOXIDE 33 mmol/L (22-30); CHLORIDE 103 mmol/L (98-107); CREATINE KINASE 140 U/L (30-135); GLUCOSE 119 mg/dL (75-110); POTASSIUM 3.9 mmol/L (3.6-5.0); TOTAL PROTEIN 7.6 g/dL (6.3-8.2)
[2019-04-10 12:30] LABS: CREATINE KINASE MB 1.48 ng/mL (<4.55)
[2019-04-10 12:32] LABS: TROPONIN I < 0.012 ng/mL
--- NOTE | 2019-04-10 13:02 | RADIOLOGY REPORT (SQ) ---
EXAM DESCRIPTION: CHEST 2 VIEWS COMPLETED DATE/TIME: 04/10/2019 11:20 am REASON FOR STUDY: chest pain COMPARISON: None. EXAM PARAMETERS: NUMBER OF VIEWS: two views TECHNIQUE: Digital Frontal and Lateral radiographic views of the chest acquired. RADIATION DOSE: NA LIMITATIONS: none FINDINGS: LUNGS AND PLEURA: No opacities, masses or pneumothorax. No pleural effusion. MEDIASTINUM AND HILAR STRUCTURES: No masses or contour abnormalities. HEART AND VASCULAR STRUCTURES: Heart normal size. No evidence for failure. BONES: No acute findings. HARDWARE: None in the chest. OTHER: No other significant finding. IMPRESSION: NO ACUTE RADIOGRAPHIC FINDING IN THE CHEST. TECHNICAL DOCUMENTATION: JOB ID: [id number] 2010 [employer]- All Rights Reserved Reading location - IP/workstation name: [email or web address]
--- NOTE | 2019-04-10 14:55 | ER Document Report ---
ED Cardiac - General Chief Complaint: Chest Pain Stated Complaint: CHEST PAIN/SHORTNESS OF BREATH Time Seen by Provider: 04/10/19 11:23 Primary Care Provider: MOUSTAPHA JUSTIN MD [ACTIVE STAFF] - Follow up in 3-5 days Mode of Arrival: Ambulatory Information source: Patient TRAVEL OUTSIDE OF THE [place] IN LAST 30 DAYS: No - HPI Notes: Patient presents with chest pain. She states she has had it for proxy 1 week. It is a pressure sensation. She has had some shortness of breath with it. She states she has had multiple previous PEs and is currently on Xarelto. She has never had a heart attack or any type of coronary artery disease. She has had several previous negative stress test in the past. The last one approximately 1 year ago. - Related Data Allergies/Adverse Reactions: oxycodone Allergy (Intermediate, Verified 04/10/19 11:23) Hives cephalexin monohydrate [From Keflex] Allergy (Verified 09/13/18 16:28) sulfamethoxazole [From Bactrim] Allergy (Verified 09/13/18 16:28) trimethoprim [From Bactrim] Allergy (Verified 09/13/18 16:28) Home Medications: atenolol, xarelto, atorvastatin, clonidine, metformin, vit d, vit b12, symbicort, ventolin, kChlor, B-asa Past Medical History - General Information source: Patient - Social History Smoking Status: Never Smoker Chew tobacco use (# tins/day): No Frequency of alcohol use: None Drug Abuse: None Family History: Arthritis, CAD, CVA, Hyperlipidemia, Hypertension, Malignancy, Thyroid Disfunction Patient has suicidal ideation: No Patient has homicidal ideation: No - Past Medical History Cardiac Medical History: Reports: Hx Hypercholesterolemia, Hx Hypertension, Hx Pulmonary Embolism Denies: Hx Atrial Fibrillation, Hx Congestive Heart Failure, Hx Coronary Artery Disease, Hx Heart Attack, Hx Peripheral Vascular Disease, Hx Heart Murmur Pulmonary Medical History: Reports: Hx Asthma, Hx Bronchitis, Hx COPD, Hx Pneumonia, Hx Sleep Apnea - bipap at home Denies: Hx Respiratory Failure, Hx Tuberculosis Neurological Medical History: Reports: Hx Cerebrovascular Accident. Denies: Hx Seizures, Hx Parkinson's Disease Endocrine Medical History: Reports: Hx Diabetes Mellitus Type 2 - no insulin at this time. Patient on Metformin more then 10 years, Hx Hypothyroidism. Denies: Hx Graves' Disease, Hx Hyperthyroidism Renal/ Medical History: Reports: Hx Kidney Stones. Denies: Hx End Stage Renal Disease, Hx Ovarian Cysts, Hx Peritoneal Dialysis, Hx Pelvic Inflammatory Disease Malignancy Medical History: Denies: Hx Breast Cancer, Hx Cervical Cancer, Hx Leukemia, Hx Lung Cancer, Hx Ovarian Cancer GI Medical History: Reports: Hx Gastroesophageal Reflux Disease, Hx Hiatal Hernia. Denies: Hx Crohn's Disease, Hx Irritable Bowel, Hx Liver Failure, Hx Pancreatitis, Hx Ulcer Musculoskeletal Medical History: Reports Hx Arthritis, Denies Hx Fibromyalgia, Denies Hx Multiple Sclerosis, Denies Hx Muscular Dystrophy, Reports Hx Musculoskeletal Deformity, Reports Hx Musculoskeletal Trauma, Denies Hx Systemic Lupus Erythematosus Psychiatric Medical History: Reports: Hx Anxiety Denies: Hx Bipolar Disorder, Hx Dementia, Hx Depression, Hx Post Traumatic Stress Disorder, Hx Schizophrenia Traumatic Medical History: Reports: Hx Fractures - right hand Infectious Medical History: Denies: Hx HIV Past Surgical History: Reports: Hx Cholecystectomy, Hx Hysterectomy, Hx Thyroid Surgery. Denies: Hx Appendectomy, Hx Bowel Surgery, Hx Section, Hx Colostomy, Hx Coronary Artery Bypass Graft, Hx Gastric Bypass Surgery, Hx Herniorrhaphy, Hx Mastectomy, Hx Pacemaker, Hx Tonsillectomy, Hx Tubal Ligation - Immunizations Immunizations up to date: No Hx Diphtheria, Pertussis, Tetanus Vaccination: Yes Hx Pneumococcal Vaccination: 11/21/18 Review of Systems - Review of Systems Constitutional: denies: Chills, Fever Cardiovascular: Chest pain. denies: Palpitations Respiratory: Short of breath. denies: Cough -: Yes All other systems reviewed and negative Physical Exam - Vital signs Vitals: Temp Pulse Resp BP Pulse Ox 98.5 F 79 22 H 164/107 H 98 04/10/19 10:44 04/10/19 10:44 04/10/19 10:44 04/10/19 10:44 04/10/19 10:44 Interpretation: Hypertensive - General General appearance: Appears well, Alert - HEENT Head: Normocephalic, Atraumatic Eyes: Normal Pupils: PERRL - Respiratory Respiratory status: No respiratory distress Chest status: Nontender Breath sounds: Normal Chest palpation: Normal - Cardiovascular Rhythm: Regular Heart sounds: Normal auscultation Murmur: No - Abdominal Inspection: Normal Distension: No distension Bowel sounds: Normal Tenderness: Nontender Organomegaly: No organomegaly - Back Back: Normal, Nontender - Extremities General upper extremity: Normal inspection, Nontender, Normal color, Normal ROM, Normal temperature General lower extremity: Normal inspection, Nontender, Normal color, Normal ROM, Normal temperature, Normal weight bearing. No: Khadra's sign - Neurological Neuro grossly intact: Yes Cognition: Normal Orientation: AAOx4 [place] Coma Scale Eye Opening: Spontaneous Luz Coma Scale Verbal: Oriented Luz Coma Scale Motor: Obeys Commands [place] Coma Scale Total: 15 Speech: Normal Motor strength normal: LUE, RUE, LLE, RLE Sensory: Normal - Psychological Associated symptoms: Normal affect, Normal mood - Skin Skin Temperature: Warm Skin Moisture: Dry Skin Color: Normal Course - Re-evaluation Re-evalutation: 04/10/19 15:05 Patient presents with chest pain however serial enzymes are negative. EKG shows no acute changes. Patient's history does not seem consistent with coronary artery disease. She is already on Xarelto so I did not feel that it be worthwhile to pursue any type of embolic or DVT pathology. It seems most prudent to have the patient pursue outpatient work-up. - Vital Signs Vital signs: Temp Pulse Resp BP Pulse Ox 98.5 F 79 14 135/91 H 100 04/10/19 10:44 04/10/19 10:44 04/10/19 15:01 04/10/19 15:01 04/10/19 15:01 - Laboratory Result Diagrams: 04/10/19 11:31 04/10/19 11:31 Laboratory results interpreted by me: 04/10/19 04/10/19 04/10/19 11:31 11:31 11:31 Hgb 11.1 L Hct 35.2 L MCV 74 L MCH 23.5 L MCHC 31.7 L RDW 18.0 H Carbon Dioxide 33 H Glucose 119 H Creatine Kinase 140 H Ur Leukocyte Esterase TRACE H - Diagnostic Test Radiology reviewed: Image reviewed, Reports reviewed - EKG Interpretation by Mi EKG shows normal: Sinus rhythm Rate: Normal - 78 Rhythm: NSR Voltage: Consistant with LVH Additional EKG results interpreted by me: 04/10/19 15:[address] depressions in the lateral leads however this was present on old EKG and does not appear to be a new ischemic change. Discharge - Discharge Clinical Impression: Chest pain Qualifiers: Chest pain type: unspecified Qualified Code(s): R07.9 - Chest pain, unspecified Condition: Stable Disposition: HOME, SELF-CARE Instructions: Chest Pain of Unclear Cause ([facility]) Additional Instructions: Please call your family doctor as soon as possible to arrange follow-up Referrals: MOUSTAPHA JUSTIN MD [ACTIVE STAFF] - Follow up in 3-5 days
[2019-04-10 15:41] VITALS: BP 148/97
--- NOTE | 2019-04-10 18:52 | EKG REPORT ---
SEVERITY:- ABNORMAL ECG - SINUS RHYTHM PROBABLE LEFT ATRIAL ABNORMALITY LEFT VENTRICULAR HYPERTROPHY : Confirmed by: Cassie Banuelos 10-Apr-2019 18:52:13
== END 2019-04-10 15:41 | disposition home or self-care (01) ==
LOC: ER 10:18
DX: R07.9 Chest pain, unspecified (principal); R06.02 Shortness of breath; E78.00 Pure hypercholesterolemia, unspecified; I10 Essential (primary) hypertension; J44.9 Chronic obstructive pulmonary disease, unspecified; Z88.6 Allergy status to analgesic agent; Z88.3 Allergy status to other anti-infective agents; Z79.02 Long term (current) use of antithrombotics/antiplatelets; Z79.84 Long term (current) use of oral hypoglycemic drugs; Z86.711 Personal history of pulmonary embolism; Z90.49 Acquired absence of other specified parts of digestive tract; Z90.710 Acquired absence of both cervix and uterus
CPT/HCPCS: 36415; 71046; 80053; 81001; 82550; 82553; 84484; 85025; 93005; 93010; 99285

== ENCOUNTER → 2019-04-26 | Outpatient (CLI) | payer BC, MEDICARE ==
--- NOTE | 2019-04-26 13:39 | RADIOLOGY REPORT (SQ) ---
EXAM DESCRIPTION: CT ABD/PELVIS WITH IV ORAL COMPLETED DATE/TIME: 04/26/2019 11:36 am REASON FOR STUDY: DIVERTICULITIS W/O HEM (K57.32) K57.32 DVTRCLI OF LG INT W/O PERFORATION OR ABSCE SS W/O BLEE . Intermittent diffuse abdominal pain. Previous hysterectomy and cholecystectomy. COMPARISON: 11/24/2018 TECHNIQUE: CT scan of the abdomen and pelvis performed using helical scanning technique with dynamic intravenous contrast injection. No oral contrast. Images reviewed with lung, soft tissue, and bone windows. Reconstructed coronal and sagittal MPR images reviewed. Delayed images for evaluation of the urinary system also acquired. All images stored on PACS. All CT scanners at this facility use dose modulation, iterative reconstruction, and/or weight based d osing when appropriate to reduce radiation dose to as low as reasonably achievable (ALARA). [facility]: Dose Right [facility]: CareDose [facility]: Dose Right [facility]: Teradose 4D [facility]: Herotainment CONTRAST TYPE AND DOSE: contrast/concentration: Isovue 350.00 mg/ml; Total Contrast Delivered: 100.0 ml; Total Saline Delivered: 72.0 ml RENAL FUNCTION: GFR > 60. RADIATION DOSE: CT Rad equipment meets quality standard of care and radiation dose reduction techniq ues were employed. CTDIvol: 10.2 - 10.2 mGy. DLP: 1026 mGy-cm.. LIMITATIONS: None. FINDINGS: LOWER CHEST: No significant findings. No nodules or infiltrates. LIVER: The liver has normal size and contour. There is moderate diffuse hepatic steatosis. No focal hepatic mass. Hepatic and portal veins are patent. No biliary ductal dilation. SPLEEN: Normal size. No focal lesions. PANCREAS: No masses. No significant calcifications. No adjacent inflammation or peripancreatic fluid collections. Pancreatic duct not dilated. GALLBLADDER: Surgically absent. ADRENAL GLANDS: No significant masses or asymmetry. RIGHT KIDNEY AND URETER: Right renal cortical scarring at the inferior pole. No solid renal mass. 5 mm nonobstructing right inferior pole renal calculus. 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 No hydronephrosis or hydroureter. LEFT KIDNEY AND URETER: No solid masses. No significant calcifications. No hydronephrosis or hydr oureter. AORTA AND VESSELS: No aneurysm. No dissection. Renal arteries, SMA, celiac without stenosis. RETROPERITONEUM: No retroperitoneal adenopathy, hemorrhage or masses. BOWEL AND PERITONEAL CAVITY: There is acute inflammation involving several distal descending colon di verticula in the left lower quadrant, consistent with acute diverticulitis. No perforation or perito liliana abscess. No pneumoperitoneum. No bowel obstruction. APPENDIX: Normal. PELVIS: Post hysterectomy. No adnexal mass. Urinary bladder is unremarkable. Calcified pelvic phle boliths. ABDOMINAL WALL: No masses. No hernias. BONES: No significant or acute findings. OTHER: No other significant finding. IMPRESSION: 1. Acute diverticulitis involving the distal colon in the left lower quadrant. No perforation or per itoneal abscess. 2. Moderate hepatic steatosis. COMMENT: Findings discussed with Dr Manriquez on 04/26/2019 at 1328 hours. TECHNICAL DOCUMENTATION: JOB ID: [id number] Quality ID # [id number]: Final reports with documentation of one or more dose reduction techniques (e.g., Au tomated exposure control, adjustment of the mA and/or kV according to patient size, use of iterative reconstruction technique) 2010 [employer]- All Rights Reserved Reading location - IP/workstation name: [email or web address]
== END ==
LOC: RAD 09:53
PROVIDERS: ATTEND Internal Medicine Gastroenterology
DX: K57.32 Diverticulitis of large intestine without perforation or abscess without bleeding (principal)
CPT/HCPCS: 74177

== ENCOUNTER 2019-07-18 09:40 | Emergency (ER) | payer BC, MEDICARE ==
--- NOTE | 2019-07-18 10:32 | ER Document Report ---
ED Blood Pressure Problem - General Chief Complaint: Blood Pressure Problem Stated Complaint: BLOOD PRESSURE PROBLEMS Time Seen by Provider: 07/18/19 10:23 Primary Care Provider: MOUSTAPHA JUSTIN MD [ACTIVE STAFF] - Follow up as needed Mode of Arrival: Ambulatory Information source: Patient TRAVEL OUTSIDE OF THE [place] IN LAST 30 DAYS: No - HPI Notes: Patient states that she is concerned about her blood pressure. She states that earlier this morning she took her blood pressure and it was approximately 220 systolic. She states around the same time she had a burning sensation in the left arm that radiated up into her left face. This pain was intermittent. It was mild to moderate. It is now gone. Nothing made it better or worse. She denies any trouble speaking or swallowing. No vision changes. No weakness or other abnormal sensations. No significant chest pain or shortness of breath. She states she did recently have her blood pressure medication changed. She states she tried to call her primary care doctor today but they were unable to see her in the office. - Related Data Allergies/Adverse Reactions: oxycodone Allergy (Intermediate, Verified 04/10/19 11:23) Hives cephalexin monohydrate [From Keflex] Allergy (Verified 09/13/18 16:28) sulfamethoxazole [From Bactrim] Allergy (Verified 09/13/18 16:28) trimethoprim [From Bactrim] Allergy (Verified 09/13/18 16:28) Past Medical History - General Information source: Patient - Social History Smoking Status: Never Smoker Frequency of alcohol use: None Drug Abuse: None Family History: Arthritis, CAD, CVA, Hyperlipidemia, Hypertension, Malignancy, Thyroid Disfunction - Past Medical History Cardiac Medical History: Reports: Hx Hypercholesterolemia, Hx Hypertension, Hx Pulmonary Embolism Denies: Hx Atrial Fibrillation, Hx Congestive Heart Failure, Hx Coronary Artery Disease, Hx Heart Attack, Hx Peripheral Vascular Disease, Hx Heart Murmur Pulmonary Medical History: Reports: Hx Asthma, Hx Bronchitis, Hx COPD, Hx Pneumonia, Hx Sleep Apnea - bipap at home Denies: Hx Respiratory Failure, Hx Tuberculosis Neurological Medical History: Reports: Hx Cerebrovascular Accident. Denies: Hx Seizures, Hx Parkinson's Disease Endocrine Medical History: Reports: Hx Diabetes Mellitus Type 2 - no insulin at this time. Patient on Metformin more then 10 years, Hx Hypothyroidism. Denies: Hx Graves' Disease, Hx Hyperthyroidism Renal/ Medical History: Reports: Hx Kidney Stones. Denies: Hx End Stage Renal Disease, Hx Ovarian Cysts, Hx Peritoneal Dialysis, Hx Pelvic Inflammatory Disease Malignancy Medical History: Denies: Hx Breast Cancer, Hx Cervical Cancer, Hx Sydni kemia, Hx Lung Cancer, Hx Ovarian Cancer GI Medical History: Reports: Hx Gastroesophageal Reflux Disease, Hx Hiatal Hernia. Denies: Hx Crohn's Disease, Hx Irritable Bowel, Hx Liver Failure, Hx Pancreatitis, Hx Ulcer Musculoskeletal Medical History: Reports Hx Arthritis, Denies Hx Fibromyalgia, Denies Hx Multiple Sclerosis, Denies Hx Muscular Dystrophy, Reports Hx Musculoskeletal Deformity, Reports Hx Musculoskeletal Trauma, Denies Hx Systemic Lupus Erythematosus Psychiatric Medical History: Reports: Hx Anxiety Denies: Hx Bipolar Disorder, Hx Dementia, Hx Depression, Hx Post Traumatic Stress Disorder, Hx Schizophrenia Traumatic Medical History: Reports: Hx Fractures - right hand Infectious Medical History: Denies: Hx HIV Past Surgical History: Reports: Hx Cholecystectomy, Hx Hysterectomy, Hx Thyroid Surgery. Denies: Hx Appendectomy, Hx Bowel Surgery, Hx Section, Hx Colostomy, Hx Coronary Artery Bypass Graft, Hx Gastric Bypass Surgery, Hx Herniorrhaphy, Hx Mastectomy, Hx Pacemaker, Hx Tonsillectomy, Hx Tubal Ligation - Immunizations Immunizations up to date: No Hx Diphtheria, Pertussis, Tetanus Vaccination: Yes Hx Pneumococcal Vaccination: 11/21/18 Review of Systems - Review of Systems Constitutional: denies: Chills, Fever Cardiovascular: denies: Chest pain, Palpitations Respiratory: denies: Cough, Short of breath -: Yes All other systems reviewed and negative Physical Exam - Vital signs Vitals: Temp Pulse Resp BP Pulse Ox 99 F 64 16 164/103 H 96 07/18/19 09:41 07/18/19 09:41 07/18/19 09:41 07/18/19 09:41 07/18/19 09:41 Interpretation: Hypertensive - General General appearance: Appears well, Alert - HEENT Head: Normocephalic, Atraumatic Eyes: Normal Pupils: PERRL - Respiratory Respiratory status: No respiratory distress Chest status: Nontender Breath sounds: Normal Chest palpation: Normal - Cardiovascular Rhythm: Regular Heart sounds: Normal auscultation Murmur: No - Abdominal Inspection: Normal Distension: No distension Bowel sounds: Normal Tenderness: Nontender Organomegaly: No organomegaly - Back Back: Normal, Nontender - Extremities General upper extremity: Normal inspection, Nontender, Normal color, Normal ROM, Normal temperature General lower extremity: Normal inspection, Nontender, Normal color, Normal ROM, Normal temperature, Normal weight bearing. 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 No: Pronator drift Sensory: Normal - Psychological Associated symptoms: Normal affect, Normal mood - Skin Skin Temperature: Warm Skin Moisture: Dry Skin Color: Normal Course - Vital Signs Vital signs: Temp Pulse Resp BP Pulse Ox 99.0 F 64 19 150/93 H 100 07/18/19 10:30 07/18/19 09:41 07/18/19 11:00 07/18/19 11:00 07/18/19 11:00 - Laboratory Result Diagrams: 07/18/19 10:35 07/18/19 10:35 Laboratory results interpreted by me: 07/18/19 07/18/19 10:35 10:35 Hgb 11.3 L Hct 35.3 L MCV 74 L MCH 23.7 L RDW 17.4 H Glucose 113 H - EKG Interpretation by Il EKG shows normal: Sinus rhythm Rate: Bradycardia - 59 Rhythm: NSR Voltage: Consistant with LVH Discharge - Discharge Clinical Impression: Uncontrolled hypertension Condition: Stable Disposition: HOME, SELF-CARE Additional Instructions: Please follow-up with your doctor tomorrow as scheduled Forms: Elevated Blood Pressure Referrals: MOUSTAPHA JUSTIN MD [ACTIVE STAFF] - Follow up as needed
[2019-07-18 10:53] LABS: HEMATOCRIT 35.3 % (36.0-47.0); HEMOGLOBIN 11.3 g/dL (12.0-15.5); MEAN CORPUSCULAR HEMOGLOBIN 23.7 pg (27.0-33.4); MEAN CORPUSCULAR HGB CONC 32.1 g/dL (32.0-36.0); MEAN CORPUSCULAR VOLUME 74 fl (80-97); PLATELET COUNT 276 10^3/uL (150-450); RED BLOOD COUNT 4.77 10^6/uL (3.72-5.28); RED CELL DISTRIBUTION WIDTH 17.4 % (11.5-14.0); WHITE BLOOD COUNT 4.5 10^3/uL (4.0-10.5)
[2019-07-18 11:02] LABS: ALBUMIN 4.1 g/dL (3.5-5.0); ALKALINE PHOSPHATASE 81 U/L (38-126); ANION GAP 9 (5-19); ASPARTATE AMINO TRANSFERASE 24 U/L (14-36); BILIRUBIN,TOTAL 0.4 mg/dL (0.2-1.3); BLOOD UREA NITROGEN 11 mg/dL (7-20); CALCIUM 9.9 mg/dL (8.4-10.2); CARBON DIOXIDE 28 mmol/L (22-30); CHLORIDE 103 mmol/L (98-107); GLUCOSE 113 mg/dL (75-110); POTASSIUM 4.1 mmol/L (3.6-5.0); TOTAL PROTEIN 7.4 g/dL (6.3-8.2)
[2019-07-18 11:16] LABS: ABSOLUTE LYMPHOCYTES# (MANUAL) 1.6 10^3/uL (0.5-4.7); ABSOLUTE MONOCYTES # (MANUAL) 0.2 10^3/uL (0.1-1.4); ANISOCYTOSIS 1+; BASOPHILS % (MANUAL) 0 % (0-2); EOSINOPHILS % (MANUAL) 4 % (0-6); LYMPHOCYTES % (MANUAL) 36 % (13-45); MONOCYTES % (MANUAL) 4 % (3-13); PLATELET COMMENT ADEQUATE; SEGMENTED NEUTROPHILS % (MAN) 56 % (42-78); TOTAL CELLS COUNTED 100
[2019-07-18 11:18] LABS: OVALOCYTES 1+; POIKILOCYTOSIS 1+; TARGET CELLS SLIGHT
[2019-07-18 11:36] VITALS: BP 123/86
--- NOTE | 2019-07-18 19:37 | EKG REPORT ---
SEVERITY:- ABNORMAL ECG - SINUS RHYTHM LEFT VENTRICULAR HYPERTROPHY : Confirmed by: Primo Hampton MD 18-Jul-2019 19:36:19
== END 2019-07-18 11:36 | disposition home or self-care (01) ==
LOC: ER 09:40
DX: I10 Essential (primary) hypertension (principal); R20.8 Other disturbances of skin sensation; E78.00 Pure hypercholesterolemia, unspecified; Z88.6 Allergy status to analgesic agent; Z88.3 Allergy status to other anti-infective agents; Z90.49 Acquired absence of other specified parts of digestive tract; Z90.710 Acquired absence of both cervix and uterus; Z86.711 Personal history of pulmonary embolism
CPT/HCPCS: 36415; 80053; 84484; 85025; 93005; 93010; 99283

== ENCOUNTER → 2019-12-13 | Outpatient (CLI) | payer BC, MEDICARE ==
--- NOTE | 2019-12-13 12:37 | RADIOLOGY REPORT (SQ) ---
EXAM DESCRIPTION: CT ABD/PELVIS WITH IV ORAL IMAGES COMPLETED DATE/TIME: 12/13/2019 12:17 pm REASON FOR STUDY: R10.9 UNSPECIFIED ABDOMINAL PAIN R10.9 UNSPECIFIED ABDOMINAL PAIN COMPARISON: 04/26/2019 and 11/24/2018. TECHNIQUE: CT scan of the abdomen and pelvis performed using helical scanning technique with dynamic intravenous contrast injection. No oral contrast. Images reviewed with lung, soft tissue, and bone windows. Reconstructed coronal and sagittal MPR images reviewed. Delayed images for evaluation of the urinary system also acquired. All images stored on PACS. All CT scanners at this facility use dose modulation, iterative reconstruction, and/or weight based d osing when appropriate to reduce radiation dose to as low as reasonably achievable (ALARA). [facility]: Dose Right [facility]: CareDose [facility]: Dose Right [facility]: Teradose 4D [facility]: Sequent CONTRAST TYPE AND DOSE: contrast/concentration: Isovue 350.00 mmol/ml; Total Contrast Delivered: 82. 0 ml; Total Saline Delivered: 63.0 ml RENAL FUNCTION: Creatinine 1.0. RADIATION DOSE: CT Rad equipment meets quality standard of care and radiation dose reduction techniq ues were employed. CTDIvol: 9.9 - 10.0 mGy. DLP: 978 mGy-cm.. LIMITATIONS: None. FINDINGS: LOWER CHEST: No significant findings. No nodules or infiltrates. LIVER: Normal size. Diffuse fatty infiltration. No masses. No dilated ducts. SPLEEN: Normal size. No focal lesions. PANCREAS: No masses. No significant calcifications. No adjacent inflammation or peripancreatic fluid collections. Pancreatic duct not dilated. GALLBLADDER: Surgically absent. ADRENAL GLANDS: No significant masses or asymmetry. RIGHT KIDNEY AND URETER: No solid masses. Chronic scarring in the lower pole with calcification. No hydronephrosis or hydroureter. LEFT KIDNEY AND URETER: No solid masses. No significant calcifications. No hydronephrosis or hydr oureter. AORTA AND VESSELS: No aneurysm. No dissection. Renal arteries, SMA, celiac without stenosis. RETROPERITONEUM: No retroperitoneal adenopathy, hemorrhage or masses. BOWEL AND PERITONEAL CAVITY: Diverticuli in the descending and sigmoid colon. Focal inflammatory delia nges involving the mid descending colon with bowel wall thickening and stranding in the the pericolon ic soft tissues. No abnormal fluid collection or extraluminal gas. No free fluid or peritoneal danielle s. APPENDIX: Normal. PELVIS: No mass. No free fluid. Normal bladder. ABDOMINAL WALL: No masses. No hernias. BONES: No significant or acute findings. Degenerative changes and scoliosis in the spine. OTHER: No other significant finding. IMPRESSION: 1. ACUTE DIVERTICULITIS INVOLVING THE DESCENDING COLON. NO EVIDENCE OF ABSCESS OR PERFORATION. 2. STABLE CHRONIC CHANGES. CHRONIC SCARRING IN THE LOWER POLE OF THE RIGHT KIDNEY. SCOLIOSIS AND DE GENERATIVE CHANGES IN THE SPINE. FATTY INFILTRATION OF THE LIVER. NO OTHER SIGNIFICANT FINDING IN T HE ABDOMEN OR PELVIS ON CT SCAN WITH IV CONTRAST. TECHNICAL DOCUMENTATION: JOB ID: [id number] Quality ID # [id number]: Final reports with documentation of one or more dose reduction techniques (e.g., Au tomated exposure control, adjustment of the mA and/or kV according to patient size, use of iterative reconstruction technique) 2010 [email or web address]- All Rights Reserved Reading location - IP/workstation name: [email or web address]
== END ==
LOC: RAD 09:20
PROVIDERS: ATTEND Surgery
DX: K57.32 Diverticulitis of large intestine without perforation or abscess without bleeding (principal); K76.0 Fatty (change of) liver, not elsewhere classified; R10.9 Unspecified abdominal pain; R50.9 Fever, unspecified; Z87.19 Personal history of other diseases of the digestive system
CPT/HCPCS: 74177; 82565

== ENCOUNTER 2020-01-08 14:28 | Observation (INO) | payer BC, MEDICARE, OTHER ==
--- NOTE | 2020-01-08 15:07 | ER Document Report ---
ED Medical Screen (RME) - General Chief Complaint: Dizziness Stated Complaint: NECK PAIN,DIZZY Time Seen by Provider: 01/08/20 14:48 Primary Care Provider: GEO JACKSON MD [Primary Care Provider] - Follow up as needed TRAVEL OUTSIDE OF THE [place] IN LAST 30 DAYS: No - HPI Notes: 01/08/20 14:58 64-year-old female with a history of type 2 diabetes, hypertension, hyperlipidemia and history of CVA presents to the emergency room today with sudden onset dizziness that started at 8 AM, reports that it is worse when she looks down or closes her eyes. Denies that the room is spinning or that she is spinning. Patient also is saying that around noon she started with some left arm burning sensation. 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 Patient states that she has tried meclizine in the past and it has not worked. Denies any left arm numbness or tingling, she denies any shortness of breath, chest pain, nausea vomiting or diarrhea. She recently was placed on Cipro Flagyl for diverticulitis, and that was not working as well so she was changed to Augmentin and Flagyl for diverticulitis. Has any fevers or chills. I have greeted and performed a rapid initial assessment of this patient. A comprehensive ED assessment and evaluation of the patient, analysis of test results and completion of the medical decision making process will be conducted by additional ED providers. PHYSICAL EXAMINATION: GENERAL: Well-appearing, well-nourished and in no acute distress. HEAD: Atraumatic, normocephalic. EYES: Pupils equal round extraocular movements intact, conjunctiva are normal. NECK: Normal range of motion CV: s1, s2 regular LUNGS: No respiratory distress Musculoskeletal: Normal range of motion NEUROLOGICAL: Normal speech, normal gait. 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 Tongue midline, speech clear, face symmetrical. No weakness to upper extremities. SKIN: Warm, Dry, normal turgor, no rashes or lesions noted. 01/08/20 15:07 - Related Data Allergies/Adverse Reactions: oxycodone Allergy (Intermediate, Verified 04/10/19 11:23) Hives cephalexin monohydrate [From Keflex] Allergy (Verified 09/13/18 16:28) sulfamethoxazole [From Bactrim] Allergy (Verified 09/13/18 16:28) trimethoprim [From Bactrim] Allergy (Verified 09/13/18 16:28) Past Medical History - Past Medical History Cardiac Medical History: Reports: Hx Hypercholesterolemia, Hx Hypertension, Hx Pulmonary Embolism Denies: Hx Atrial Fibrillation, Hx Congestive Heart Failure, Hx Coronary Artery Disease, Hx Heart Attack, Hx Peripheral Vascular Disease, Hx Heart Murmur Pulmonary Medical History: Reports: Hx Asthma, Hx Bronchitis, Hx COPD, Hx Pneumonia, Hx Sleep Apnea - bipap at home Denies: Hx Respiratory Failure, Hx Tuberculosis Neurological Medical History: Reports: Hx Cerebrovascular Accident. Denies: Hx Seizures, Hx Parkinson's Disease Endocrine Medical History: Reports: Hx Diabetes Mellitus Type 2 - no insulin at this time. Patient on Metformin more then 10 years, Hx Hypothyroidism. Denies: Hx Graves' Disease, Hx Hyperthyroidism Renal/ Medical History: Reports: Hx Kidney Stones. Denies: Hx End Stage Renal Disease, Hx Ovarian Cysts, Hx Peritoneal Dialysis, Hx Pelvic Inflammatory Disease Malignancy Medical History: Denies: Hx Breast Cancer, Hx Cervical Cancer, Hx Leukemia, Hx Lung Cancer, Hx Ovarian Cancer GI Medical History: Reports: Hx Gastroesophageal Reflux Disease, Hx Hiatal Hernia. Denies: Hx Crohn's Disease, Hx Irritable Bowel, Hx Liver Failure, Hx Pancreatitis, Hx Ulcer Musculoskeltal Medical History: Reports Hx Arthritis, Denies Hx Fibromyalgia, Denies Hx Multiple Sclerosis, Denies Hx Muscular Dystrophy, Reports Hx Musculoskeletal Deformity, Reports Hx Musculoskeletal Trauma, Denies Hx Systemic Lupus Erythematosus Psychiatric Medical History: Reports: Hx Anxiety Denies: Hx Bipolar Disorder, Hx Dementia, Hx Depression, Hx Post Traumatic Stress Disorder, Hx Schizophrenia Traumatic Medical History: Reports: Hx Fractures - right hand Infectious Medical History: Denies: Hx HIV Past Surgical History: Reports: Hx Cholecystectomy, Hx Hysterectomy, Hx Thyroid Surgery. Denies: Hx Appendectomy, Hx Bowel Surgery, Hx Section, Hx Colostomy, Hx Coronary Artery Bypass Graft, Hx Gastric Bypass Surgery, Hx Herniorrhaphy, Hx Mastectomy, Hx Pacemaker, Hx Tonsillectomy, Hx Tubal Ligation - Immunizations Immunizations up to date: No Hx Diphtheria, Pertussis, Tetanus Vaccination: Yes Doctor's Discharge - Discharge Referrals: GEO JACKSON MD [Primary Care Provider] - Follow up as needed
[2020-01-08 16:12] LABS: ABSOLUTE EOSINOPHILS # (AUTO) 0.1 10^3/uL (0.0-0.6); ABSOLUTE MONOCYTES (AUTO) 0.6 10^3/uL (0.1-1.4); ABSOLUTE NEUT (AUTO) 2.7 10^3/uL (1.7-8.2); BASOPHILS % (AUTO) 0.3 % (0-2); EOSINOPHILS % (AUTO) 2.5 % (0-6); HEMATOCRIT 33.1 % (36.0-47.0); HEMOGLOBIN 10.6 g/dL (12.0-15.5); LYMPHOCYTES % (AUTO) 36.7 % (13-45); MEAN CORPUSCULAR HEMOGLOBIN 23.5 pg (27.0-33.4); MEAN CORPUSCULAR HGB CONC 32.1 g/dL (32.0-36.0); MEAN CORPUSCULAR VOLUME 73 fl (80-97); MONOCYTES % (AUTO) 11.1 % (3-13); PLATELET COUNT 255 10^3/uL (150-450); RED BLOOD COUNT 4.52 10^6/uL (3.72-5.28); RED CELL DISTRIBUTION WIDTH 17.5 % (11.5-14.0); SEGMENTED NEUTROPHILS % (AUTO) 49.4 % (42-78); TOTAL CELLS COUNTED % (AUTO) 100 %; WHITE BLOOD COUNT 5.5 10^3/uL (4.0-10.5)
[2020-01-08 16:13] LABS: APPEARANCE,URINE CLEAR; BILIRUBIN,URINE NEGATIVE (NEGATIVE); COLOR,URINE STRAW; GLUCOSE, URINE NEGATIVE (NEGATIVE); KETONES,URINE NEGATIVE (NEGATIVE); LEUKOCYTE ESTERASE,URINE NEGATIVE (NEGATIVE); NITRITE,URINE NEGATIVE (NEGATIVE); PROTEIN,URINE NEGATIVE (NEGATIVE); URINE SPECIFIC GRAVITY 1.002; UROBILINOGEN,URINE NEGATIVE mg/dL (<2.0)
[2020-01-08 16:16] LABS: ALBUMIN 4.1 g/dL (3.5-5.0); ALKALINE PHOSPHATASE 74 U/L (38-126); ANION GAP 10 (5-19); ASPARTATE AMINO TRANSFERASE 28 U/L (14-36); BILIRUBIN,DIRECT 0.1 mg/dL (0.0-0.4); BILIRUBIN,TOTAL 0.4 mg/dL (0.2-1.3); BLOOD UREA NITROGEN 10 mg/dL (7-20); CARBON DIOXIDE 26 mmol/L (22-30); CHLORIDE 103 mmol/L (98-107); CREATINE KINASE 105 U/L (30-135); GLUCOSE 93 mg/dL (75-110); INTERNATIONAL RATION (INR) 2.14; POTASSIUM 4.1 mmol/L (3.6-5.0); TOTAL PROTEIN 7.4 g/dL (6.3-8.2)
[2020-01-08 16:17] LABS: PARTIAL THROMBOPLASTIN TIME 47.5 SEC (23.5-35.8)
[2020-01-08 16:26] LABS: CREATINE KINASE MB 0.64 ng/mL (<4.55)
[2020-01-08 16:27] LABS: TROPONIN I < 0.012 ng/mL
--- NOTE | 2020-01-08 17:57 | RADIOLOGY REPORT (SQ) ---
EXAM DESCRIPTION: CT HEAD WITHOUT IMAGES COMPLETED DATE/TIME: 01/08/2020 3:11 pm REASON FOR STUDY: dizziness, L arm pain, hx of cva COMPARISON: 02/29/2008. TECHNIQUE: Axial images acquired through the brain without intravenous contrast. Images reviewed wi th bone, brain and subdural windows. Additional sagittal and coronal reconstructions were generated. Images stored on PACS. All CT scanners at this facility use dose modulation, iterative reconstruction, and/or weight based d osing when appropriate to reduce radiation dose to as low as reasonably achievable (ALARA). [facility]: Dose Right [facility]: CareDose [facility]: Dose Right [facility]: Teradose 4D [facility]: Devver RADIATION DOSE: mGy. LIMITATIONS: None. FINDINGS: VENTRICLES: Normal size and contour. CEREBRUM: No masses. No hemorrhage. No midline shift. No evidence for acute infarction. Normal gra y/white matter differentiation. No areas of low density in the white matter. CEREBELLUM: No masses. No hemorrhage. No alteration of density. No evidence for acute infarction. EXTRAAXIAL SPACES: No fluid collections. No masses. ORBITS AND GLOBE: No intra- or extraconal masses. Normal contour of globe without masses. CALVARIUM: No fracture. PARANASAL SINUSES: No fluid or mucosal thickening. SOFT TISSUES: No mass or hematoma. OTHER: No other significant finding. IMPRESSION: NORMAL BRAIN CT WITHOUT CONTRAST. EVIDENCE OF ACUTE STROKE: NO. COMMENT: Quality ID # [id number]: Final reports with documentation of one or more dose reduction techniques (e.g., Automated exposure control, adjustment of the mA and/or kV according to patient size, use of iterative reconstruction technique) TECHNICAL DOCUMENTATION: JOB ID: [id number] 2010 [employer]- All Rights Reserved Reading location - IP/workstation name: [email or web address]
--- NOTE | 2020-01-08 17:57 | RADIOLOGY REPORT (SQ) ---
EXAM DESCRIPTION: CHEST SINGLE VIEW IMAGES COMPLETED DATE/TIME: 01/08/2020 3:13 pm REASON FOR STUDY: dizziness, L arm pain, hx of cva COMPARISON: 04/10/2019. EXAM PARAMETERS: NUMBER OF VIEWS: One view. TECHNIQUE: Single frontal radiographic view of the chest acquired. RADIATION DOSE: NA LIMITATIONS: None. FINDINGS: LUNGS AND PLEURA: No opacities, masses or pneumothorax. No pleural effusion. MEDIASTINUM AND HILAR STRUCTURES: No masses. Contour normal. HEART AND VASCULAR STRUCTURES: Stable cardiomegaly. Normal vasculature. BONES: No acute findings. HARDWARE: None in the chest. OTHER: No other significant finding. IMPRESSION: STABLE CARDIOMEGALY. NO ACUTE RADIOGRAPHIC FINDING IN THE CHEST. TECHNICAL DOCUMENTATION: JOB ID: [id number] 2010 [email or web address]- All Rights Reserved Reading location - IP/workstation name: [email or web address]
[2020-01-08] MEDS ORDERED: NORMAL SALINE 1000 ML 1,000 ML IV ONE (22:18)
[2020-01-08] MEDS ORDERED: MECLIZINE HCL 25 MG TABLET PO ONE (22:18)
--- NOTE | 2020-01-08 23:04 | ER Document Report ---
ED Dizziness/Weakness - General Chief Complaint: Dizziness Stated Complaint: NECK PAIN,DIZZY Time Seen by Provider: 01/08/20 14:48 TRAVEL OUTSIDE OF THE [place] IN LAST 30 DAYS: No - HPI Notes: Patient is a 64-year-old female with a past medical history of PE on Xarelto, hypertension who presents with dizziness. States symptoms began around 10 AM today. She states that she was dizzy cleaning her fridge while leaning down. She states that she feels like she is leaning to the left when she walks. She denies any headaches or numbness. No loss of sensation. No trouble talking. States it is not like the room is spinning or wooziness. It is hard for her to explain the dizziness. Patient denies any chest pain or shortness of breath. Does mention chronic left-sided neck pain which feels burning and is not new. No trauma. No fevers or chills. - Related Data Allergies/Adverse Reactions: oxycodone Allergy (Intermediate, Verified 04/10/19 11:23) Hives cephalexin monohydrate [From Keflex] Allergy (Verified 09/13/18 16:28) sulfamethoxazole [From Bactrim] Allergy (Verified 09/13/18 16:28) trimethoprim [From Bactrim] Allergy (Verified 09/13/18 16:28) Past Medical History - General Information source: Patient - Social History Smoking Status: Never Smoker Chew tobacco use (# tins/day): No Frequency of alcohol use: None Drug Abuse: None Family History: Arthritis, CAD, CVA, Hyperlipidemia, Hypertension, Malignancy, Thyroid Disfunction - Past Medical History Cardiac Medical History: Reports: Hx Hypercholesterolemia, Hx Hypertension, Hx Pulmonary Embolism Denies: Hx Atrial Fibrillation, Hx Congestive Heart Failure, Hx Coronary Artery Disease, Hx Heart Attack, Hx Peripheral Vascular Disease, Hx Heart Murmur Pulmonary Medical History: Reports: Hx Asthma, Hx Bronchitis, Hx COPD, Hx Pneumonia, Hx Sleep Apnea - bipap at home Denies: Hx Respiratory Failure, Hx Tuberculosis Neurological Medical History: Reports: Hx Cerebrovascular Accident. Denies: Hx Seizures, Hx Parkinson's Disease Endocrine Medical History: Reports: Hx Diabetes Mellitus Type 2 - no insulin at this time. Patient on Metformin more then 10 years, Hx Hypothyroidism. Denies: Hx Graves' Disease, Hx Hyperthyroidism Renal/ Medical History: Reports: Hx Kidney Stones. Denies: Hx End Stage Renal Disease, Hx Ovarian Cysts, Hx Peritoneal Dialysis, Hx Pelvic Inflammatory Disease Malignancy Medical History: Denies: Hx Breast Cancer, Hx Cervical Cancer, Hx Leukemia, Hx Lung Cancer, Hx Ovarian Cancer GI Medical History: Reports: Hx Gastroesophageal Reflux Disease, Hx Hiatal Hernia. Denies: Hx Crohn's Disease, Hx Irritable Bowel, Hx Liver Failure, Hx Pancreatitis, Hx Ulcer Musculoskeletal Medical History: Reports Hx Arthritis, Denies Hx Fibromyalgia, Denies Hx Multiple Sclerosis, Denies Hx Muscular Dystrophy, Reports Hx Musculoskeletal Deformity, Reports Hx Musculoskeletal Trauma, Denies Hx Systemic Lupus Erythematosus Psychiatric Medical History: Reports: Hx Anxiety Denies: Hx Bipolar Disorder, Hx Dementia, Hx Depression, Hx Post Traumatic Stress Disorder, Hx Schizophrenia Traumatic Medical History: Reports: Hx Fractures - right hand Infectious Medical History: Denies: Hx HIV Past Surgical History: Reports: Hx Cholecystectomy, Hx Hysterectomy, Hx Orthopedic Surgery - bilateral knee replacement. Denies: Hx Appendectomy, Hx Bowel Surgery, Hx Section, Hx Colostomy, Hx Coronary Artery Bypass Graft, Hx Gastric Bypass Surgery, Hx Herniorrhaphy, Hx Mastectomy, Hx Pacemaker, Hx Thyroid Surgery, Hx Tonsillectomy, Hx Tubal Ligation - Immunizations Immunizations up to date: No Hx Diphtheria, Pertussis, Tetanus Vaccination: Yes Hx Pneumococcal Vaccination: 11/21/18 Review of Systems - Review of Systems Notes: CONSTITUTIONAL: No fever, fatigue or weight loss. SKIN: No rash. HENT: No congestion, ear pain, or sore throat. EYES: No recent vision problems or eye pain. CARDIOVASCULAR: No chest pain or edema. RESPIRATORY: No cough, shortness of breath, congestion, or wheezing. GASTROINTESTINAL: No abdominal pain, nausea, vomiting, bloody stools or diar herbie. GENITOURINARY: No dysuria. MUSCULOSKELETAL: No joint pain or swelling. LYMPHATIC: No swollen glands. NEUROLOGIC: No seizures. No headache, focal weakness or sensory changes. Positive for dizziness. HEMATOLOGIC: No unusual bruising or bleeding. PSYCHIATRIC: No depression or anxiety. Physical Exam - Vital signs Vitals: Temp Pulse Resp BP Pulse Ox 98.2 F 61 20 130/93 H 100 01/08/20 14:48 01/08/20 14:48 01/08/20 14:48 01/08/20 14:48 01/08/20 14:48 - General General appearance: Appears well Notes: VITAL SIGNS: Within normal limits. GENERAL: No acute distress, non-toxic appearance. HEAD: Normal with no signs of head trauma. EYES: EOMI, conjunctiva normal, no discharge. No nystagmus. EARS: Hearing grossly intact. NOSE: Normal. NECK: Normal range of motion, no tenderness, supple, no lymphadenopathy, No adenopathy, no JVD. CHEST: Clear breath sounds bilaterally. No wheezes, rales, or rhonchi. CARDIAC: Regular rate and rhythm. S1 and S2, without murmurs, gallops, or rubs. VASCULAR: No Edema. Peripheral pulses normal and equal in all extremities. ABDOMEN: Normal and soft with no tenderness, no masses or pulsatile masses. GENITOURINARY: Normal, No tenderness MUSCULOSKELETAL: Good range of motion of all major joints. Extremities without clubbing, cyanosis or edema. NEUROLOGICAL: Alert and oriented x 3. No focal sensory or strength deficits. Speech normal. Follows commands appropriately. NIH is 0. PSYCHIATRIC: Normal Affect, judgement and mood. SKIN: Normal appearance with no rashes or lesions. Course - Re-evaluation Re-evalutation: 01/08/20 23:06 Patient appears well on exam. She is describing feelings of leaning to the left when she walks. I did have her ambulate around the room and she states she feels unsteady. Patient CT was normal. I will do a trial of meclizine and fluids and reevaluate. Said her family doctor wanted her to get a MRI. I did discuss with the hospitalist who will admit the patient to rule out posterior stroke. 01/09/20 05:42 - Vital Signs Vital signs: Temp Pulse Resp BP Pulse Ox 98.2 F 56 L 20 111/70 100 01/09/20 02:32 01/09/20 04:22 01/09/20 04:22 01/09/20 04:22 01/09/20 04:22 - Laboratory Result Diagrams: 01/08/20 15:33 01/08/20 15:33 Laboratory results interpreted by me: 01/08/20 01/08/20 15:33 15:33 Hgb 10.6 L Hct 33.1 L MCV 73 L MCH 23.5 L RDW 17.5 H PT 24.0 H APTT 47.5 H - Diagnostic Test Radiology reviewed: Image reviewed, Reports reviewed - EKG Interpretation by Me EKG shows normal: Sinus rhythm Rate: Normal Heart block present: 1st Degree When compared to previous EKG there are: No significant change Additional EKG results interpreted by me: 01/08/20 23:05 Sinus rhythm at a rate of 61. QTc 427. No acute ST changes. EKG is similar to previous. Discharge - Discharge Clinical Impression: Dizziness Condition: Stable Disposition: ADMITTED OBSERVATION Admitting Provider: [facility] Admitted: Telemetry
--- NOTE | 2020-01-08 23:53 | EKG REPORT ---
SEVERITY:- ABNORMAL ECG - SINUS RHYTHM FIRST DEGREE AV BLOCK LEFT VENTRICULAR HYPERTROPHY : Confirmed by: Evelin Jordan MD 08-Jan-2020 23:51:49
[2020-01-09] MEDS ORDERED: ACETAMINOPHEN 325 MG TABLET PO PRN (02:13)
[2020-01-09] MEDS ORDERED: PROMETHAZINE HCL 25 MG TABLET PO PRN (02:13)
--- NOTE | 2020-01-09 03:39 | PDOC H&P ---
History of Present Illness Admission Date/PCP: GEO JACKSON MD Patient complains of: Dizziness History of Present Illness: DIANNA SOLARES is a 64 year old patient, PE, type 2 diabetes and obesity who presents to the ER with 12-hour duration of dizziness. He describes the dizziness room spinning around but denies any lightheadedness. Associated with this she also states that she has been having unstable gait picking that she has been wobbling when she walks. She states that sometimes her feet and the feet is worse when she bends forward moves her head. Associated with this she also has been having left-sided sharp intermittent neck pain that radiates to the base of her skull posteriorly which she has been experiencing for the past few months but it has been worse the past couple of hours. She denies any change in her vision. She also denies slurring of speech, difficulty of swallowing or breathing. She has no weakness of extremities and has not noticed any change in her bowel or urinary habits. At the ED patient was given meclizine and was hydr ated with IV fluid with no significant improvement in her symptoms. Past Medical History Cardiac Medical History: Reports: Hyperlipidema, Hypertension, Pulmonary Embolism Denies: Atrial Fibrillation, Congestive Heart Failure, Coronary Artery Disease, Myocardial Infarction, Peripheral Vascular Disease, Heart Murmur Pulmonary Medical History: Reports: Asthma, Bronchitis, Chronic Obstructive Pulmonary Disease (COPD), Pneumonia, Sleep Apnea - bipap at home Denies: Respiratory Failure, Tuberculosis Neurological Medical History: Denies: Seizures Endocrine Medical History: Reports: Diabetes Mellitus Type 2 - no insulin at this time. Patient on Metformin more then 10 years, Hypothyroidism Denies: Hyperthyroidism Renal/ Medical History: Denies: End Stage Renal Disease Malignancy Medical History: Denies: Breast Cancer, Cervical Cancer, Leukemia, Lung Cancer, Ovarian Cancer GI Medical History: Reports: Gastroesophageal Reflux Disease, Hiatal Hernia Denies: Crohn's Disease Musculoskeltal Medical History: Reports: Arthritis Denies: Fibromyalgia Psychiatric Medical History: Denies: Bipolar Disorder, Dementia, Depression, Post Traumatic Stress Disorder Hematology: Reports: Anemia Denies: Hemophilia, Sickle Cell Disease Infectious Medical History: Denies: HIV Past Surgical History Past Surgical History: Reports: Cholecystectomy, Hysterectomy, Orthopedic Surgery - bilateral knee replacement Denies: Amputation, Appendectomy, Section, Colostomy, Coronary Artery Bypass Graft, Gastric Bypass Surgery, Herniorrhaphy, Mastectomy, Pacemaker, Tonsillectomy, Tubal Ligation Social History Information Source: Patient Lives with: Family Smoking Status: Never Smoker Electronic Cigarette use?: No Frequency of Alcohol Use: None Hx Recreational Drug Use: No Hx Prescription Drug Abuse: No - Advance Directive Resuscitation Status: Full Code Family History Family History: Arthritis, CAD, CVA, Hyperlipidemia, Hypertension, Malignancy, Thyroid Disfunction Parental Family History Reviewed: Yes Children Family History Reviewed: Yes Sibling(s) Family History Reviewed.: Yes Medication/Allergy Home Medications: Albuterol Sulfate [Proair HFA Inhalation Aerosol 8.5 gm MDI] 1 puff IH ASDIR PRN 09/13/18 Amlodipine/Atorvastatin [Caduet 5 mg-40 mg Tablet] 1 tab PO DAILY 09/13/18 Aspirin [Aspirin 81 mg Chewable Tablet] 81 mg PO DAILY 09/13/18 Atenolol [Tenormin 50 mg Tablet] 50 mg PO DAILY 09/13/18 Benzonatate [Tessalon Perle 100 mg Capsule] 200 mg PO Q8HP PRN 09/13/18 Budesonide/Formoterol Fumarate [Symbicort HFA 160-4.5 mcg Inhaler 6 gm] 2 puff IH Q12 09/13/18 Cholecalciferol (Vitamin D3) [Vitamin D3 2000 unit Tablet] 2,000 unit PO DAILY 09/13/18 Clonidine HCl [Catapres 0.1 mg Tablet] 0.1 mg PO Q12 09/13/18 Cyanocobalamin (Vitamin B-12) [B-12] 1,000 mcg PO DAILY 09/13/18 Losartan/Hydrochlorothiazide [Hyzaar 100-12.5 Tablet] 1 each PO DAILY 09/13/18 Metformin HCl [Glucophage] 500 mg PO BID 09/13/18 Potassium Chloride [Klor-Con 10 Meq Tablet ER] 10 meq PO DAILY 09/13/18 Rivaroxaban [Xarelto] 20 mg PO QPM 09/13/18 Allergies/Adverse Reactions: oxycodone Allergy (Intermediate, Verified 01/09/20 07:30) Hives cephalexin monohydrate [From Keflex] Allergy (Verified 01/09/20 07:30) sulfamethoxazole [From Bactrim] Allergy (Verified 01/09/20 07:30) trimethoprim [From Bactrim] Allergy (Verified 01/09/20 07:30) Review of Systems Constitutional: ABSENT: chills, fever(s), headache(s), weight gain, weight loss Eyes: ABSENT: visual disturbances Ears: ABSENT: hearing changes Nose, Mouth, and Throat: ABSENT: as per HPI, headache(s), mouth pain, sore throat, other Cardiovascular: ABSENT: chest pain, dyspnea on exertion, edema, orthropnea, palpitations Respiratory: ABSENT: cough, hemoptysis Gastrointestinal: ABSENT: abdominal pain, constipation, diarrhea, hematemesis, hematochezia, nausea, vomiting Genitourinary: ABSENT: dysuria, hematuria Musculoskeletal: ABSENT: joint swelling Integumentary: ABSENT: rash, wounds Neurological: PRESENT: as per HPI Psychiatric: ABSENT: anxiety, depression, homidical ideation, suicidal ideation Endocrine: ABSENT: cold intolerance, heat intolerance, polydipsia, polyuria Hematologic/Lymphatic: ABSENT: easy bleeding, easy bruising Physical Exam Vital Signs: Temp Pulse Resp BP Pulse Ox 98.2 F 59 L 20 99/64 L 98 01/09/20 02:32 01/09/20 03:00 01/09/20 03:00 01/09/20 03:00 01/09/20 03:00 Intake & Output 01/07/20 01/08/20 01/09/20 06:59 06:59 06:59 Intake Total 1000 Balance 1000 Weight 87.8 kg Additional comments: GENERAL APPEARANCE: Alert and oriented x3, in no acute distress HEENT: Normocephalic and atraumatic. No scleral icterus. Moist oral mucosa NECK: Supple. No lymphadenopathy or tenderness. No carotid bruit. No JVD CHEST: Symmetric. Nontender to palpation. LUNGS: Clear with good air entry bilaterally. No wheezing or crackles HEART: Regular rate and rhythm with normal S1 and S2. No murmurs, gallops, or rubs. ABDOMEN: Flat, soft, active bowel sounds, no direct or rebound tenderness. No organomegaly detected. No CVA tenderness EXTREMITIES: No cyanosis, clubbing, or edema. MUSCULOSKELETAL: No deformity, atrophy or swelling noted PSYCHIATRIC: Recent and remote memory is intact. Appropriate mood and affect. SKIN: Warm, dry, and well perfused. No lesions or rashes are noted. NEUROLOGIC: Cranial nerves II to XII grossly intact Motor: 5/5 normal 4 extremities Sensory: Intact sensation to light touch and pinprick Reflexes: +2 bilaterally at triceps biceps and knee Normal tone, He has going, no clonus Results Laboratory Results: 01/08/20 15:33 01/08/20 15:33 01/08/20 01/08/20 01/08/20 15:33 15:33 15:33 WBC 5.5 RBC 4.52 Hgb 10.6 L Hct 33.1 L MCV 73 L MCH 23.5 L MCHC 32.1 RDW 17.5 H Plt Count 255 Seg Neutrophils % 49.4 Sodium 138.6 Potassium 4.1 Chloride 103 Carbon Dioxide 26 Anion Gap 10 BUN 10 Creatinine 0.90 Est GFR ( Amer) > 60 Glucose 93 Calcium 10.0 Total Bilirubin 0.4 AST 28 Alkaline Phosphatase 74 Total Protein 7.4 Albumin 4.1 Urine Color STRAW Urine Appearance CLEAR Urine pH 7.0 Ur Specific [place] 1.002 Urine Protein NEGATIVE Urine Glucose (UA) NEGATIVE Urine Ketones NEGATIVE Urine Blood NEGATIVE Urine Nitrite NEGATIVE Ur Leukocyte Esterase NEGATIVE Urine WBC (Auto) 0 Urine RBC (Auto) 0 01/08/20 01/08/20 15:33 15:33 Creatine Kinase 105 CK-MB (CK-2) 0.64 Troponin I < 0.012 Impressions: Chest X-Ray 01/08/20 14:55 IMPRESSION: STABLE CARDIOMEGALY. NO ACUTE RADIOGRAPHIC FINDING IN THE CHEST. Head CT 01/08/20 14:55 IMPRESSION: NORMAL BRAIN CT WITHOUT CONTRAST. EVIDENCE OF ACUTE STROKE: NO. Assessment and Plan - Diagnosis (1) Dizziness Is this a current diagnosis for this admission?: Yes Plan: Patient presents with 10-hour duration of dizziness and left-sided neck pain Was given meclizine and was hydrated with no improvement Ivory-Hallpike maneuver was negative NIH stroke score was 0 Has been difficult to control blood pressure Symptoms concerning for posterior circulation CVA from vertebral artery dissection Currently has no neurologic deficit Continue monitoring her on telemetry Fall precaution, swallow eval and aspiration precaution Continue aspirin and atorvastatin Will hold off antihypertensive medication for now Head CT without contrast was negative Ordered CTA head and neck If imaging comes negative, will consider audiology evaluation (2) Hypertension Is this a current diagnosis for this admission?: Yes Plan: Currently on amlodipine, losartan, hydrochlorothiazide Will hold off losartan and HCTZ for now to allow for permissive hypertension Low-sodium diet Continue to monitor vital signs (3) Diabetes Qualifiers: Diabetes mellitus type: type 2 Is this a current diagnosis for this admission?: Yes Plan: Place the patient on sliding scale insulin, Accu-Chek and hypoglycemia protocol (4) Obesity (BMI 30-39.9) Is this a current diagnosis for this admission?: Yes Plan: Encouraged lifestyle modification including dietary changes and exercise (5) Pulmonary embolism Is this a current diagnosis for this admission?: Yes Plan: Continue rivaroxaban - Time Time Spent with patient: 35 or more minutes Total Critical Time (Minutes): 45 Medications reviewed and adjusted accordingly: Yes Anticipated Discharge Disposition: Home, Self Care Anticipated Discharge Timeframe: within 48 hours - Inpatient Certification Based on my medical assessment, after consideration of the patient's comorbidities, presenting symptoms, or acuity I expect that the services needed warrant INPATIENT care.: Yes I certify that my determination is in accordance with my understanding of Medicare's requirements for reasonable and necessary INPATIENT services [42 CFR 412.3e].: Yes Medical Necessity: Need Close Monitoring Due to Risk of Patient Decompensation, Need For Continuous Telemetry Monitoring, Need for Neurological Checks, Risk of Complication if Not Cared For in Hospital Post Hospital Care: D/C or Transfer Summary
[2020-01-09] MEDS ORDERED: DEXTROSE 50%-WATER 25 GM/50 ML DISP.SYRIN IV PRN ×2 (06:45)
[2020-01-09] MEDS ORDERED: DEXTROSE 40% GEL 15 GM TUBE PO PRN ×2 (06:45)
[2020-01-09] MEDS ORDERED: GLUCAGON,HUMAN RECOMB 1 MG INJ IM PRN (06:45)
[2020-01-09] MEDS: INSULIN REG, HUMAN 100 UNIT/ML 3 ML VIAL (PYX) SUBCUT SCH ×2 (08:26→10:59)
--- NOTE | 2020-01-09 08:45 | RADIOLOGY REPORT (SQ) ---
EXAM DESCRIPTION: CTA HEAD IMAGES COMPLETED DATE/TIME: 01/09/2020 8:28 am REASON FOR STUDY: Dizziness, possible posterior circulation stroke D50.8 OTHER IRON DEFICIENCY ANEM IAS COMPARISON: 01/08/2020 TECHNIQUE: Axial images acquired through the brain without and with intravenous contrast. Images re viewed with bone, brain and subdural windows. Additional sagittal and coronal reconstructions were g enerated. Images stored on PACS. CT angio [place] was performed. Thin section postcontrast CT images were reviewed with maxim um intensity projected images of the [place] in multiple orientations. All CT scanners at this facility use dose modulation, iterative reconstruction, and/or weight based d osing when appropriate to reduce radiation dose to as low as reasonably achievable (ALARA). [facility]: Dose Right [facility]: CareDose [facility]: Dose Right [facility]: Teradose 4D [facility]: [employer] CONTRAST TYPE AND DOSE: contrast/concentration: Isovue 350.00 mmol/ml; Total Contrast Delivered: 70. 0 ml; Total Saline Delivered: 69.0 ml RENAL FUNCTION: BUN 10; creatinine 0.9 RADIATION DOSE: CT Rad equipment meets quality standard of care and radiation dose reduction techniq ues were employed. CTDIvol: 15.0 - 53.2 mGy. DLP: 1590 mGy-cm.. LIMITATIONS: None. FINDINGS: VENTRICLES: Normal size and contour. CEREBRUM: No masses. No hemorrhage. No midline shift. No evidence for acute infarction. Normal gra y/white matter differentiation. No areas of low density in the white matter. CEREBELLUM: No masses. No hemorrhage. No alteration of density. No evidence for acute infarction. No enhancing lesions. EXTRA-AXIAL SPACES: No fluid collections. No enhancing lesions. ORBITS AND GLOBE: No intra- or extraconal masses. Normal contour of globe without masses. CALVARIUM: No fracture. PARANASAL SINUSES: No fluid or mucosal thickening. SOFT TISSUES: No mass or hematoma. OTHER: No other significant finding. CTA COW: [place]: Atherosclerotic vascular calcifications are seen within the cavernous segment of th e right internal carotid artery ; no flow limiting stenosis. The anterior, middle, posterior cerebra l arteries are all patent. No evidence of aneurysm or focal stenosis. POSTERIOR CIRCULATION: The distal vertebral arteries are patent as is the basilar artery. No aneurysm . OTHER: No other significant finding. IMPRESSION: NORMAL BRAIN CT WITH AND WITHOUT CONTRAST. NO CTA EVIDENCE OF STENOSIS OR ANEURYSM OF THE [place]. EVIDENCE OF ACUTE STROKE: NO. TECHNICAL DOCUMENTATION: JOB ID: [id number] Quality ID # [id number]: Final reports with documentation of one or more dose reduction techniques (e.g., Au tomated exposure control, adjustment of the mA and/or kV according to patient size, use of iterative reconstruction technique) 2010 [employer]- All Rights Reserved Reading location - IP/workstation name: [email or web address]
[2020-01-09 08:46] VITALS: BP 133/94
[2020-01-09 08:56] LABS: CHOLESTEROL 107.59 mg/dL (0-200); TRIGLYCERIDES 91 mg/dL (<150)
[2020-01-09 08:57] LABS: IRON(TIBC) 48.4 ug/dL (37-170)
--- NOTE | 2020-01-09 09:03 | RADIOLOGY REPORT (SQ) ---
EXAM DESCRIPTION: CTA NECK IMAGES COMPLETED DATE/TIME: 01/09/2020 8:29 am REASON FOR STUDY: Dizziness, possible posterior circulation stroke D50.8 OTHER IRON DEFICIENCY ANEM IAS COMPARISON: 01/08/2020 TECHNIQUE: Axial dynamic scanning technique with dynamic contrast enhancement through the extra-coke crane operator nial carotid and vertebral arteries. Multiplanar reconstruction. 3-D MIPS and Volume-rendered imag es acquired at the workstation and saved to PACS. Images are reviewed in soft tissue, bone, lung w indows. All CT scanners at this facility use dose modulation, iterative reconstruction, and/or weight based d osing when appropriate to reduce radiation dose to as low as reasonably achievable (ALARA). [facility]: Dose Right [facility]: CareDose [facility]: Dose Right [facility]: Teradose 4D [facility]: [employer] CONTRAST TYPE AND DOSE: 70 mL Omnipaque 350- low osmolar. RENAL FUNCTION: BUN 10; creatinine 0.9 LIMITATIONS: None. FINDINGS: AORTIC ARCH: Normal three-vessel origin. Bilateral subclavian arteries are patent. No d issection. RIGHT CAROTIDS: Patent common, internal and external carotid arteries without suggestion of significa nt stenosis or irregular plaque. No dissection. RIGHT VERTEBRAL: Dominant. Patent. No dissection. LEFT CAROTIDS: Patent common, internal and external carotid arteries without suggestion of significan t stenosis or irregular plaque. No dissection. LEFT VERTEBRAL: Diminutive. Patent. No dissection. OTHER: A 3.6 x 2.4 x 3.4 cm soft tissue attenuation seen to the right of the trachea and aortic arch is diminished in volume relative to comparison imaging. OTHER: 3-D reconstructions confirm findings. IMPRESSION: NORMAL CTA OF THE EXTRA-CRANIAL CAROTID AND VERTEBRAL ARTERIES. COMMENT: Quality ID #[id number]: Measurements of distal internal carotid diameter were used as the denomina tor for stenosis measurement. TECHNICAL DOCUMENTATION: JOB ID: [id number] Quality ID # 436: Final reports with documentation of one or more dose reduction techniques (e.g., Au tomated exposure control, adjustment of the mA and/or kV according to patient size, use of iterative reconstruction technique) 2010 [employer]- All Rights Reserved Reading location - IP/workstation name: [email or web address]-
[2020-01-09 09:07] LABS: DIRECT LDL 40 mg/dL (<100)
[2020-01-09] MEDS ORDERED: AMLODIPINE BESYLATE 5 MG TABLET PO SCH (10:00)
[2020-01-09] MEDS ORDERED: ATENOLOL 50 MG TABLET PO SCH (10:00)
[2020-01-09] MEDS ORDERED: CYANOCOBALAMIN (VITAMIN B-12) 1,000 MCG TABLET PO SCH (10:00)
[2020-01-09] MEDS ORDERED: ASPIRIN 81 MG TABLET, CHEWABLE PO SCH (10:00)
[2020-01-09] MEDS ORDERED: FAMOTIDINE 20 MG TABLET PO SCH (10:00)
--- NOTE | 2020-01-09 14:25 | PDOC DISCHARGE SUMMARY ---
Impression - Admit/DC Date/PCP Admission Date/Primary Care Provider: 01/09/20 02:37 GEO JACKSON MD Discharge Date: 01/09/20 - Discharge Diagnosis (1) Dizziness Is this a current diagnosis for this admission?: Yes (2) Hypertension Is this a current diagnosis for this admission?: Yes (3) Diabetes mellitus type II, controlled Is this a current diagnosis for this admission?: Yes (4) Obesity (BMI 30-39.9) Is this a current diagnosis for this admission?: Yes (5) Pulmonary embolism Is this a current diagnosis for this admission?: Yes - Additional Information Resuscitation Status: Full Code Discharge Diet: Diabetic Discharge Activity: Activity As Tolerated Referrals: GEO JACKSON MD [Primary Care Provider] - Follow up as needed Home Medications: Albuterol Sulfate [Proair HFA Inhalation Aerosol 8.5 gm MDI] 1 puff IH ASDIR PRN 09/13/18 Aspirin [Aspirin 81 mg Chewable Tablet] 81 mg PO DAILY 09/13/18 Budesonide/Formoterol Fumarate [Symbicort HFA 160-4.5 mcg Inhaler 6 gm] 2 puff IH Q12 09/13/18 Cholecalciferol (Vitamin D3) [Vitamin D3 2000 unit Tablet] 2,000 unit PO DAILY 09/13/18 Clonidine HCl [Catapres 0.1 mg Tablet] 0.1 mg PO Q8 09/13/18 Cyanocobalamin (Vitamin B-12) [B-12] 1,000 mcg PO DAILY 09/13/18 Metformin HCl [Glucophage] 500 mg PO BID 09/13/18 Amlodipine Besylate [Norvasc 10 mg Tablet] 10 mg PO DAILY 01/09/20 Ferrous Sulfate [Feosol 325 mg Tablet] 325 mg PO DAILY 01/09/20 Pantoprazole Sodium [Protonix [address] Tablet] 40 mg PO QAM 01/09/20 History of Present Illiness History of Present Illness: As per admitting HPI by Dr. Campuzano on 01/09/2020 "DIANNA SOLARES is a 64 year old patient, PE, type 2 diabetes and obesity who presents to the ER with 12-hour duration of dizziness. He describes the dizziness room spinning around but denies any lightheadedness. Associated with this she also states that she has been having unstable gait picking that she has been wobbling when she walks. She states that sometimes her feet and the feet is worse when she bends forward moves her head. Associated with this she also has been having left-sided sharp intermittent neck pain that radiates to the base of her skull posteriorly which she has been experiencing for the past few months but it has been worse the past couple of hours. She denies any change in her vision. She also denies slurring of speech, difficulty of swallowing or breathing. She has no weakness of extremities and has not noticed any change in her bowel or urinary habits. At the ED patient was given meclizine and was hydrated with IV fluid with no significant improvement in her symptoms." Hospital Course Hospital Course: Dizziness Presented with 10-hour duration of dizziness with associated left-sided neck pain. Initially treated with meclizine and fluids with no significant improvement. Laie-Hallpike maneuver was negative NIH stroke score was 0, without nuerologic deficit. CT head, CTA head and neck without acute findings of stroke. Pt tells me her glucose on initial presentation in the ED was lows 90s, she was given orange juice and her dizziness significantly improved. At this time she is without symptoms. VSS stable and patient is happy to go home. Hypertension Currently on amlodipine, losartan, hydrochlorothiazide. May resume home blood pressure medications. Diabetes Home medications include Metformin. Glucose readings consistently 90s over admission. Patient tells me that her glucometer recently broke, provided with a Rx for new glucometer today. Recommend daily glucose checks and glucose log. Obesity (BMI 30-39.9) Encouraged lifestyle modification including dietary changes and exercise Pulmonary embolism Continue rivaroxaban Physical Exam Vital Signs: Temp Pulse Resp BP Pulse Ox 98.2 F 91 18 133/94 H 100 01/09/20 02:32 01/09/20 08:59 01/09/20 08:59 01/09/20 08:59 01/09/20 08:59 Intake & Output 01/08/20 01/09/20 01/10/20 06:59 06:59 06:59 Intake Total 1000 Balance 1000 Weight 87.8 kg General appearance: PRESENT: no acute distress, obese Head exam: PRESENT: atraumatic, normocephalic Eye exam: PRESENT: conjunctiva pink, EOMI, PERRLA. ABSENT: scleral icterus Mouth exam: PRESENT: moist, tongue midline Neck exam: PRESENT: full ROM. ABSENT: JVD, tenderness, thyromegaly Respiratory exam: PRESENT: clear to auscultation aliyah, symmetrical, unlabored. ABSENT: crackles, decreased breath sounds, tachypnea, wheezes Cardiovascular exam: PRESENT: RRR, +S1, +S2. ABSENT: diastolic murmur, systolic murmur, tachycardia Pulses: PRESENT: normal radial pulses GI/Abdominal exam: PRESENT: normal bowel sounds, soft. ABSENT: distended, firm, guarding, tenderness Extremities exam: PRESENT: full ROM. ABSENT: pedal edema, tenderness Musculoskeletal exam: PRESENT: ambulatory, full ROM. ABSENT: deformity, dislocation Neurological exam: PRESENT: alert, awake, oriented to person, oriented to place, oriented to time, oriented to situation, CN II-XII grossly intact, normal gait. ABSENT: motor sensory deficit Psychiatric exam: PRESENT: appropriate affect, normal mood Skin exam: PRESENT: dry, intact, warm Results Laboratory Results: WBC 5.5 10^3/uL (4.0-10.5) 01/08/20 15:33 RBC 4.52 10^6/uL (3.72-5.28) 01/08/20 15:33 Hgb 10.6 g/dL (12.0-15.5) L 01/08/20 15:33 Hct 33.1 % (36.0-47.0) L 01/08/20 15:33 MCV 73 fl (80-97) L 01/08/20 15:33 MCH 23.5 pg (27.0-33.4) L 01/08/20 15:33 MCHC 32.1 g/dL (32.0-36.0) 01/08/20 15:33 RDW 17.5 % (11.5-14.0) H 01/08/20 15:33 Plt Count 255 10^3/uL (150-450) 01/08/20 15:33 Lymph % (Auto) 36.7 % (13-45) 01/08/20 15:33 Webb % (Auto) 11.1 % (3-13) 01/08/20 15:33 Eos % (Auto) 2.5 % (0-6) 01/08/20 15:33 Baso % (Auto) 0.3 % (0-2) 01/08/20 15:33 Absolute Neuts (auto) 2.7 10^3/uL (1.7-8.2) 01/08/20 15:33 Absolute Lymphs (auto) 2.0 10^3/uL (0.5-4.7) 01/08/20 15:33 Absolute Monos (auto) 0.6 10^3/uL (0.1-1.4) 01/08/20 15:33 Absolute Eos (auto) 0.1 10^3/uL (0.0-0.6) 01/08/20 15:33 Absolute Basos (auto) 0.0 10^3/uL (0.0-0.2) 01/08/20 15:33 Seg Neutrophils % 49.4 % (42-78) 01/08/20 15:33 PT 24.0 SEC (11.4-15.4) H 01/08/20 15:33 INR 2.14 01/08/20 15:33 APTT 47.5 SEC (23.5-35.8) H 01/08/20 15:33 Sodium 138.6 mmol/L (137-145) 01/08/20 15:33 Potassium 4.1 mmol/L (3.6-5.0) 01/08/20 15:33 Chloride 103 mmol/L (98-107) 01/08/20 15:33 Carbon Dioxide 26 mmol/L (22-30) 01/08/20 15:33 Anion Gap 10 (5-19) 01/08/20 15:33 BUN 10 mg/dL (7-20) 01/08/20 15:33 Creatinine 0.90 mg/dL (0.52-1.25) 01/08/20 15:33 Est GFR ( Amer) > 60 (>60) 01/08/20 15:33 Est GFR (MDRD) Non-Af > 60 (>60) 01/08/20 15:33 Glucose 93 mg/dL (75-110) 01/08/20 15:33 POC Glucose 96 mg/dL (70-110) 01/09/20 10:58 Calcium 10.0 mg/dL (8.4-10.2) 01/08/20 15:33 Iron 48.4 ug/dL (37-170) 01/09/20 08:22 TIBC 226 ug/dL (250-450) L 01/09/20 08:22 % Saturation 21 % 01/09/20 08:22 Ferritin 144.00 ng/mL (11.1-264.0) 01/09/20 08:22 Total Bilirubin 0.4 mg/dL (0.2-1.3) 01/08/20 15: Direct Bilirubin 0.1 mg/dL (0.0-0.4) 01/08/20 15:33 Neonat Total Bilirubin Not Reportable 01/08/20 15:33 Neonat Direct Bilirubin Not Reportable 01/08/20 15:33 Neonat Indirect Bili Not Reportable 01/08/20 15:33 AST 28 U/L (14-36) 01/08/20 15: ALT 15 U/L (<35) 01/08/20 15: Alkaline Phosphatase 74 U/L (38-126) 01/08/20 15: Creatine Kinase 105 U/L (30-135) 01/08/20 15: CK-MB (CK-2) 0.64 ng/mL (<4.55) 01/08/20 15: Troponin I < 0.012 ng/mL 01/08/20 15:33 Total Protein 7.4 g/dL (6.3-8.2) 01/08/20 15: Albumin 4.1 g/dL (3.5-5.0) 01/08/20 15:33 Triglycerides 91 mg/dL (<150) 01/09/20 08:22 Cholesterol 107.59 mg/dL (0-200) 01/09/20 08:22 LDL Cholesterol Direct 40 mg/dL (<100) 01/09/20 08:22 VLDL Cholesterol 18.0 mg/dL (10-31) 01/09/20 08:22 HDL Cholesterol 47 mg/dL (>40) 01/09/20 08:22 Urine Color STRAW 01/08/20 15: Urine Appearance CLEAR 01/08/20 15: Urine pH 7.0 (5.0-9.0) 01/08/20 15: Ur Specific [place] 1.002 01/08/20 15: Urine Protein NEGATIVE mg/dL (NEGATIVE) 01/08/20 15: Urine Glucose (UA) NEGATIVE mg/dL (NEGATIVE) 01/08/20 15:33 Urine Ketones NEGATIVE mg/dL (NEGATIVE) 01/08/20 15:33 Urine Blood NEGATIVE (NEGATIVE) 01/08/20 15:33 Urine Nitrite NEGATIVE (NEGATIVE) 01/08/20 15:33 Urine Bilirubin NEGATIVE (NEGATIVE) 01/08/20 15:33 Urine Urobilinogen NEGATIVE mg/dL (<2.0) 01/08/20 15:33 Ur Leukocyte Esterase NEGATIVE (NEGATIVE) 01/08/20 15:33 Urine WBC (Auto) 0 /HPF 01/08/20 15:33 Urine RBC (Auto) 0 /HPF 01/08/20 15:33 Urine Bacteria (Auto) TRACE /HPF 01/08/20 15:33 Squamous Epi Cells Auto 1 /HPF 01/08/20 15:33 Urine Mucus (Auto) RARE /LPF 01/08/20 15:33 Urine Ascorbic Acid NEGATIVE (NEGATIVE) 01/08/20 15:33 01/08/20 15:33 CK-MB (CK-2) 0.64 Troponin I < 0.012 Impressions: Chest X-Ray 01/08/20 14:55 IMPRESSION: STABLE CARDIOMEGALY. NO ACUTE RADIOGRAPHIC FINDING IN THE CHEST. Head CT 01/08/20 14:55 IMPRESSION: NORMAL BRAIN CT WITHOUT CONTRAST. EVIDENCE OF ACUTE STROKE: NO. Head CTA 01/09/20 00:00 IMPRESSION: NORMAL BRAIN CT WITH AND WITHOUT CONTRAST. NO CTA EVIDENCE OF STENOSIS OR ANEURYSM OF THE [place]. EVIDENCE OF ACUTE STROKE: NO. Neck CTA 01/09/20 00:00 IMPRESSION: NORMAL CTA OF THE EXTRA-CRANIAL CAROTID AND VERTEBRAL ARTERIES. Plan Plan of Treatment: 1. We did a full stroke work up including imaging and labs. All of these came back negative. 2. We also did other tests for common causes of vertigo, these were negative as well. 3. You noted that your blood sugar was in the low 90s when you got to the emergency room and you felt better after eating a orange. Please monitor your blood sugar daily, I recommend keeping a log that you can show your primary care provider. I have provided you with a prescription for a new glucometer. Healthy eating habits are important too! Try to eat little snacks throughout the day, especially in the even your blood sugar is lower than usual! 4. Please follow up with your primary care provider within one week from discharge. You may follow up with an ENT (Ear nose throat) doctor for further vertigo testing if you so choose. Time Spent: Greater than 30 Minutes Stroke Is this a Stroke Patient?: No Acute Heart Failure Is this a Heart Failure Patient?: No
[2020-01-09] MEDS ORDERED: RIVAROXABAN 10 MG TABLET PO SCH (17:00)
[2020-01-09] MEDS ORDERED: ATORVASTATIN CALCIUM 40 MG TABLET PO SCH (22:00)
[2020-01-10] MEDS ORDERED: INFLUENZA QUAD (6MOS+) 2020-21 VAC 0.5 ML SYR IM ONE (08:00)
== END 2020-01-09 11:30 | disposition home or self-care (01) ==
LOC: ER 14:28 → EH 01-09 02:37
PROVIDERS: ADMIT Student in an Organized Health Care Education/Training Program; ATTEND Physician Assistant
DX: R42 Dizziness and giddiness (principal); I10 Essential (primary) hypertension; E11.9 Type 2 diabetes mellitus without complications; E66.9 Obesity, unspecified; Z68.39 Body mass index [BMI] 39.0-39.9, adult; Z86.711 Personal history of pulmonary embolism; G47.30 Sleep apnea, unspecified; I44.0 Atrioventricular block, first degree; G89.29 Other chronic pain; M54.2 Cervicalgia; R20.8 Other disturbances of skin sensation; K21.9 Gastro-esophageal reflux disease without esophagitis; R29.700 NIHSS score 0; Z82.49 Family history of ischemic heart disease and other diseases of the circulatory system; Z82.3 Family history of stroke; K57.92 Diverticulitis of intestine, part unspecified, without perforation or abscess without bleeding; Z79.01 Long term (current) use of anticoagulants; Z79.84 Long term (current) use of oral hypoglycemic drugs; Z79.82 Long term (current) use of aspirin; Z79.899 Other long term (current) drug therapy; Z86.73 Personal history of transient ischemic attack (TIA), and cerebral infarction without residual deficits
CPT/HCPCS: 93005; 99285; 96360; 36415 ×2; 82553; 82962 ×2; 82550; 82728; 83540; 83550; 85025; 85610; 85730; 80053; 81001; 84484; 80061; 71045; 70450; 70496; 70498; 93010; G0378; A9270 ×6; J7030